=== PATIENT | female | born 1950 | race Caucasian/White ===

== ENCOUNTER 2016-09-17 22:46 | Inpatient (IN) | payer MEDICARE, OTHER ==
[~2016-09-17] VITALS: Ht 167.6 cm; Wt 92.7 kg
[~2016-09-17 22:46] MED LIST: ALPR0.254 PO; ASPI-612 PO; BUPR150T15 PO; BUSP5TAB PO; CALC-157 PO; CETI10TA16 PO; CHOL10002 PO; CYAN10002 IM; DEXT15DR5 EACHEYE; DEXT38GE2 PO; DONE5TAB7 PO; FENO160T PO; FLUO20CA8 PO; FLUO40CA2 PO; FLUT10.6 IH; FLUT16SP NS; GLUC1KIT IM; HALO0.5T PO; HALO1TAB PO; HYPR15DR5 OP; INSU100I16 SQ; INSU100I17 SQ; INSU100I27 SQ; LOPE2TAB56 PO; LORA0.5T PO; LOSA100T6 PO; LOSA50TA6 PO; MAG360OR24 PO; METF500T9 PO; PANT40TA3 PO; PETR5OIN TP; PROAIR HFA8.5 GM IH; RANI300T PO; SIMV20TA3 PO; TIOT18CA IH
[2016-09-17] MEDS ORDERED: methylPREDNISolone SOD SUCC PF 125 MG/2 ML VIAL. IV ONE (23:00)
[2016-09-17] MEDS ORDERED: IPRATRPIUM/ALBUTEROL 0.5/2.5MG 3 ML NEBU. NEB ONE (23:00)
[2016-09-17] MEDS ORDERED: 0.9 % SODIUM CHLORIDE 10 ML DISP.SYRIN. IV PRN (23:00)
[2016-09-17] MEDS ORDERED: IV NORMAL SALINE 1000ML BAG 1,000 ML IV SCH (23:00)
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
[2016-09-17 23:22] LABS: BILIRUBIN,URINE NEGATIVE (NEG); GLUCOSE,URINE NEGATIVE (NEG); NITRITE,URINE NEGATIVE (NEG); PROTEIN,URINE NEGATIVE (NEG-TRACE); UROBILINOGEN,URINE 0.2 mg/dL (0.2 mg/dL)
[2016-09-17 23:24] LABS: BASO % 0 % (0-3); EOS % 0 % (0-3); HEMATOCRIT 31.1 % (36.0-47.0); HEMOGLOBIN 10.1 g/dL (12.0-15.5); LYMPH # 1.5 x10^3/uL (1.0-4.8); LYMPH % 8 % (24-48); MEAN CORPUSCULAR HEMOGLOBIN 27 pg (25-35); MEAN CORPUSCULAR HGB CONC 32 g/dL (31-37); MEAN CORPUSCULAR VOLUME 82 fL (79-100); MONO % 8 % (0-9); NEUT % 84 % (31-73); PLATELET COUNT 296 x10^3/uL (140-400); RED CELL DISTRIBUTION WIDTH 14.8 % (11.5-14.5); WHITE BLOOD COUNT 17.8 x10^3/uL (4.0-11.0)
[2016-09-17] MEDS ORDERED: AZITHROMYCIN 500 MG in IV NORMAL SALINE 250ML 250 ML IV ONE (23:30)
[2016-09-17] MEDS ORDERED: ALBUTEROL SULFATE 2.5 MG/3 ML NEBU. ONE (23:33)
[2016-09-17 23:34] LABS: BACTERIA,URINE FEW /HPF (0-FEW); SQUAMOUS EPITHELIAL CELL,UR FEW /LPF
[2016-09-17 23:40] LABS: CALCIUM 8.9 mg/dL (8.5-10.1); CREATININE 1.2 mg/dL (0.6-1.0); GFR 45.2; POTASSIUM 4.8 mmol/L (3.5-5.1)
[2016-09-17] MEDS ORDERED: ALBUTEROL SULFATE 2.5 MG/3 ML NEBU. NEB ONE ×2 (23:45)
[2016-09-17 23:51] LABS: ALBUMIN 3.2 g/dL (3.4-5.0); DIRECT BILIRUBIN 0.1 mg/dL (0.0-0.2); MAGNESIUM 1.5 mg/dL (1.8-2.4); TOTAL BILIRUBIN 0.4 mg/dL (0.2-1.0); TOTAL PROTEIN 6.2 g/dL (6.4-8.2)
[2016-09-17 23:53] LABS: HCO3 ABG 25 mmol/L (21-28); PCO2 ABG 37 mmHg (35-46); PH ABG 7.46 (7.35-7.45); PO2 ABG 86 mmHg (65-108); SAT O2 ABG 96 % (92-99)
[2016-09-17 23:55] LABS: CKMB MASS 1.7 ng/mL (0.0-3.6)
[2016-09-18] VITALS (7 sets, daily range): BP systolic 116–151; BP diastolic 57–87
[2016-09-18 00:13] LABS: FIO2 ABG 28
[2016-09-18] MEDS ORDERED: ACETAMINOPHEN 325 MG TABLET. PO ONE (00:15)
[2016-09-18] MEDS ORDERED: ONDANSETRON PF 4 MG/2 ML VIAL. IV PRN (00:15)
[2016-09-18] MEDS ORDERED: ACETAMINOPHEN 325 MG TABLET. PO PRN (00:15)
[2016-09-18 00:21] LABS: PLT ESTIMATE ADEQUATE (ADEQUATE)
--- NOTE | 2016-09-18 00:23 | ACF ---
Admission Forms Criteria COPD Clinical Indications for Admission to Inpatient Care (Place 'X' for any and all applicable criteria): Admission is indicated for ANY ONE of the following (1)(2)(3): [X ]I. Acute exacerbation by high-risk comorbidity (e.g., pneumonia, dysrhythmia, heart failure, pleural effusion, pneumothorax) or severe underlying COPD (e.g., steroid dependent) [ ]II. Inpatient admission required rather than observation care (see Chronic Obstructive Pulmonary Disease: Observation Care) because of ANY ONE of the following: [ ]a) New or pre-existing signs or symptoms of COPD (eg, dyspnea or Tachypnea at rest or with minimal activity) that persist despite outpatient and observation care treatment [ ]b) New-onset hypoxemia (room air SaO2 less than 90%, PO2 less than 60 mm Hg (8.0 kPa)) that persists despite outpatient and observation care treatment [ ]c) Worsening of pre-existing hypoxemia (eg, new or increased requirement for supplemental oxygen to maintain oxygenation at baseline level) that persists despite outpatient and observation care treatment, with oxygen treatment needs performable only in acute inpatient setting [ ]d) Hypercarbia (PCO2 greater than 40 mm Hg (5.3 kPa))-induced respiratory acidosis (pH less than 7.35) that persists despite outpatient and observation care treatment [ ]e) Supplemental oxygen or respiratory treatments for over 24 hours that are performable only in acute inpatient setting [ ]f) Chest tube placement with active evacuation (e.g., suction, drainage) (5) [ ]g) Other condition, treatment or monitoring requiring inpatient admission [ ]III. Planned invasive surgical or diagnostic procedures requiring acute- care hospitalization [ ]IV. Acute respiratory failure (e.g., uncompensated hypercarbia, severe hypoxemia) [ ]V. Severe comorbid condition (e.g., severe steroid myopathy, acute vertebral fracture) that has acutely worsened pulmonary function [ ]. Confusion state, lethargy, obtundation, stupor or coma Extended stay beyond goal length of stay may be needed for (31)(32): [ ]a ) Respiratory Failure. [ ]b) Severe or persisting hypoxemia or hypercarbia [ ]c) Severe or persistent dyspnea [ ]d) Comorbidities (e.g. chronic heart failure, atrial fibrillation with rapid response, pneumonia) [ ]e) Malnutrition The original [facility] content created by [facility] has been revised. The portions of the content which have been revised are identified through the use of italic text or in bold, and [facility] has neither reviewed nor approved the modified material. All other unmodified content is copyright [facility]. Please see references footnoted in the original [facility] edition 2016 Admission Criteria Met?: Yes GIDEON HAMPTON Sep 18, 2016 00:23
[2016-09-18 01:37] LABS: OBC FLU VALID
[2016-09-18] MEDS: IV NORMAL SALINE 1000ML BAG 1,000 ML IV SCH ×3 (01:59→20:35)
--- NOTE | 2016-09-18 07:42 | RAD ---
Indication: Shortness of breath. Time of exam 0016 hours. Correlation is made with prior study from 09/29/2014. The heart size is stable. There has been development of airspace infiltrates in the right lung base suggestive of pneumonia. Left lung is clear. No effusion or pneumothorax is seen. Impression: Right basilar pneumonia.
[2016-09-18] MEDS ORDERED: GUAI600T47 PO (07:53)
[2016-09-18] MEDS ORDERED: BENZ0.5T PO (07:53)
[2016-09-18] MEDS ORDERED: ALBU2.5V5 NEB (07:53)
[2016-09-18] MEDS ORDERED: INSU100I17 SQ (07:53)
[2016-09-18] MEDS ORDERED: MONT10TA9 PO (07:53)
[2016-09-18] MEDS ORDERED: TIZA4TAB PO (07:53)
[2016-09-18] MEDS ORDERED: MENT118G TP (07:53)
[2016-09-18] MEDS ORDERED: SIME100L MC (07:53)
[2016-09-18] MEDS ORDERED: GUAI237L83 PO (07:53)
[2016-09-18] MEDS ORDERED: GLUC1KIT IM (07:53)
[2016-09-18] MEDS ORDERED: LORA-434 PO (07:53)
[2016-09-18] MEDS ORDERED: MULT1TAB52 PO (07:53)
[2016-09-18] MEDS ORDERED: HALO2TAB PO (07:53)
[2016-09-18] MEDS ORDERED: DEXT15DR5 EACHEYE (07:53)
[2016-09-18] MEDS ORDERED: BREO ELLIPTA 11 EACH IH (07:53)
[2016-09-18] MEDS ORDERED: FLUO20TA11 PO (07:53)
[2016-09-18] MEDS ORDERED: LOSA50TA6 PO (07:53)
[2016-09-18] MEDS ORDERED: ACET500T33 PO (07:53)
[2016-09-18] MEDS ORDERED: MAGN400C PO (07:53)
[2016-09-18] MEDS ORDERED: FLUT9.9S NS (07:53)
[2016-09-18] MEDS ORDERED: INSU100C4 SQ (07:53)
[2016-09-18] MEDS ORDERED: IPRATRPIUM/ALBUTEROL 0.5/2.5MG 3 ML NEBU. NEB SCH (08:00)
[2016-09-18] MEDS ORDERED: POLYVINYL ALCOHOL 1.4% OPHTH SOLUTION 15ML BOTTLE. OU PRN (10:15)
[2016-09-18] MEDS ORDERED: SIMETHICONE 80 MG TAB.CHEW PO PRN (10:15)
[2016-09-18] MEDS ORDERED: LOPERAMIDE 2 MG CAPSULE PO PRN (10:15)
[2016-09-18] MEDS ORDERED: MAG HYDROX/ALUMINUM HYD/SIMETH 30 ML ORAL.SUSP PO PRN (10:15)
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
[2016-09-18] MEDS ORDERED: FLUTICASONE 50MCG/NASAL SPRAY 16GM BOTTLE. NS SCH (11:30)
[2016-09-18] MEDS ORDERED: MAGNESIUM OXIDE 400 MG TABLET PO SCH (11:30)
[2016-09-18] MEDS: ALBUTEROL SULFATE 2.5 MG/3 ML NEBU. NEB SCH ×3 (11:45→19:43)
[2016-09-18] MEDS: BUDESONIDE 0.5 MG/2 ML NEBU. NEB SCH ×2 (11:45→19:43)
[2016-09-18] MEDS: INSULIN DETEMIR 300 UNITS/3 ML INSULN.PEN. SQ SCH ×2 (11:51→21:00)
[2016-09-18] MEDS: INSULIN ASPART 300 UNITS/3 ML INSULN.PEN SQ SCH ×4 (11:54→16:52)
[2016-09-18] MEDS: LORazepam 1 MG TABLET PO SCH ×2 (11:55→20:39)
[2016-09-18] MEDS: CALCIUM CARB/VIT D3 500/200 TABLET. PO SCH (11:55)
[2016-09-18] MEDS: buPROPion XL 150 MG TAB.ER.24H. PO SCH (11:56)
[2016-09-18] MEDS: MULTIVITAMIN with MINERAL TABLET. PO SCH (11:56)
[2016-09-18] MEDS: ASPIRIN ENTERIC COATED 81 MG TABLET.DR. PO SCH (11:56)
[2016-09-18] MEDS: PANTOPRAZOLE 40 MG TABLET.DR. PO SCH (11:56)
[2016-09-18] MEDS: MAGNESIUM OXIDE 400 MG TABLET PO SCH ×2 (11:56→20:40)
[2016-09-18] MEDS: FLUTICASONE 50MCG/NASAL SPRAY 16GM BOTTLE. NS SCH (11:57)
[2016-09-18] MEDS: LOSARTAN POTASSIUM 50 MG TABLET. PO SCH (11:57)
[2016-09-18] MEDS: methylPREDNISolone SOD SUCC PF 125 MG/2 ML VIAL. IV SCH ×2 (11:59→20:41)
--- NOTE | 2016-09-18 12:19 | EKG ---
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
[2016-09-18] MEDS: busPIRone 5 MG TABLET. PO SCH ×2 (14:56→20:40)
[2016-09-18] MEDS: BENZTROPINE MESYLATE 1 MG TABLET. PO SCH (20:39)
[2016-09-18] MEDS: DONEPEZIL HCL 5 MG TABLET. PO SCH (20:40)
[2016-09-18] MEDS: FLUoxetine HCL 20 MG CAPSULE PO SCH (20:40)
[2016-09-18] MEDS: tiZANidine 4 MG TABLET. PO SCH (20:40)
[2016-09-18] MEDS: SIMVASTATIN 20 MG TABLET PO SCH (20:40)
[2016-09-18] MEDS: HALOPERIDOL 2 MG TABLET. PO SCH (20:41)
[2016-09-18] MEDS: MONTELUKAST SODIUM 10 MG TABLET. PO SCH (20:41)
[2016-09-18] MEDS: FAMOTIDINE 20 MG TABLET. PO SCH (20:41)
[2016-09-18] MEDS ORDERED: AZITHROMYCIN 500 MG in IV NORMAL SALINE 250ML 250 ML IV SCH (23:00)
[2016-09-19 03:00] VITALS: BP 142/82
[2016-09-19 06:05] LABS: BASO % 0 % (0-3); EOS % 0 % (0-3); HEMATOCRIT 29.1 % (36.0-47.0); HEMOGLOBIN 9.3 g/dL (12.0-15.5); LYMPH # 0.6 x10^3/uL (1.0-4.8); LYMPH % 4 % (24-48); MEAN CORPUSCULAR HEMOGLOBIN 26 pg (25-35); MEAN CORPUSCULAR HGB CONC 32 g/dL (31-37); MEAN CORPUSCULAR VOLUME 83 fL (79-100); MONO % 4 % (0-9); NEUT % 92 % (31-73); PLATELET COUNT 319 x10^3/uL (140-400); RED BLOOD COUNT 3.52 x10^6/uL (3.50-5.40); RED CELL DISTRIBUTION WIDTH 15.1 % (11.5-14.5); WHITE BLOOD COUNT 14.2 x10^3/uL (4.0-11.0)
[2016-09-19 06:20] LABS: CALCIUM 8.8 mg/dL (8.5-10.1); CREATININE 0.9 mg/dL (0.6-1.0); MAGNESIUM 2.1 mg/dL (1.8-2.4); POTASSIUM 4.2 mmol/L (3.5-5.1)
[2016-09-19] MEDS: INSULIN ASPART 300 UNITS/3 ML INSULN.PEN SQ SCH ×6 (07:30→17:13)
[2016-09-19 07:50] VITALS: BP 133/73
[2016-09-19] MEDS: ALBUTEROL SULFATE 2.5 MG/3 ML NEBU. NEB SCH ×4 (07:57→19:23)
[2016-09-19] MEDS: BUDESONIDE 0.5 MG/2 ML NEBU. NEB SCH ×2 (07:57→19:23)
[2016-09-19] MEDS: buPROPion XL 150 MG TAB.ER.24H. PO SCH (08:20)
[2016-09-19] MEDS: MAGNESIUM OXIDE 400 MG TABLET PO SCH ×2 (08:20→20:40)
[2016-09-19] MEDS: busPIRone 5 MG TABLET. PO SCH ×3 (08:20→20:43)
[2016-09-19] MEDS: ASPIRIN ENTERIC COATED 81 MG TABLET.DR. PO SCH (08:20)
[2016-09-19] MEDS: MULTIVITAMIN with MINERAL TABLET. PO SCH (08:21)
[2016-09-19] MEDS: PANTOPRAZOLE 40 MG TABLET.DR. PO SCH (08:21)
[2016-09-19] MEDS: LOSARTAN POTASSIUM 50 MG TABLET. PO SCH (08:21)
[2016-09-19] MEDS: methylPREDNISolone SOD SUCC PF 125 MG/2 ML VIAL. IV SCH ×2 (08:22→20:40)
[2016-09-19] MEDS: LORazepam 1 MG TABLET PO SCH ×2 (08:22→20:43)
[2016-09-19] MEDS: CALCIUM CARB/VIT D3 500/200 TABLET. PO SCH (08:22)
[2016-09-19] MEDS: FLUTICASONE 50MCG/NASAL SPRAY 16GM BOTTLE. NS SCH (08:23)
--- NOTE | 2016-09-19 09:20 | PDOC ---
Provider Note Provider Note dictated PRASHANTH DURAN MD Sep 19, 2016 09:20
[2016-09-19] MEDS: INSULIN DETEMIR 300 UNITS/3 ML INSULN.PEN. SQ SCH ×2 (09:29→20:58)
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
--- NOTE | 2016-09-19 10:16 | PDOC ---
IM PROGRESS NOTES- Subjective Subjective Has cough,congestion,dyspnea. Objective Vitals Vital Signs Date Time Temp Pulse Resp B/P (MAP) Pulse Ox O2 Delivery O2 Flow Rate FiO2 09/19/16 08:21 91 133/73 09/19/16 07:57 94 Nasal Cannula 2.0 09/19/16 07:50 95.0 18 95.0 Input & Output Intake and Output 09/19/16 07:00 Intake Total 3060 ml Balance 3060 ml Intake Oral 3060 ml # Voids 7 Physical Exam Physical Exam General appearance - alert,ill appearing, and in mild distress and oriented to person, place, and time Mental Status - alert, oriented to person, place, and time, affect appropriate to mood Head - normal Chest - bilateral wheezing Heart - S1 and S2 normal Abdomen - soft, nontender, nondistended, no masses or organomegaly Neurological - alert and oriented Musculoskeletal - no muscular tenderness noted Extremities - no pedal edema Skin - warm and dry Labs Laboratory Tests Test 09/17/16 23:08 09/17/16 23:32 09/18/16 03:45 09/18/16 06:00 White Blood Count 17.8 x10^3/uL (4.0-11.0) Red Blood Count 3.80 x10^6/uL (3.50-5.40) Hemoglobin 10.1 g/dL (12.0-15.5) Hematocrit 31.1 % (36.0-47.0) Mean Corpuscular Volume 82 fL (79-100) Mean Corpuscular Hemoglobin 27 pg (25-35) Mean Corpuscular Hemoglobin Concent 32 g/dL (31-37) Red Cell Distribution Width 14.8 % (11.5-14.5) Platelet Count 296 x10^3/uL (140-400) Neutrophils (%) (Auto) 84 % (31-73) Lymphocytes (%) (Auto) 8 % (24-48) Monocytes (%) (Auto) 8 % (0-9) Eosinophils (%) (Auto) 0 % (0-3) Basophils (%) (Auto) 0 % (0-3) Neutrophils # (Auto) 14.9 x10^3uL (1.8-7.7) Lymphocytes # (Auto) 1.5 x10^3/uL (1.0-4.8) Monocytes # (Auto) 1.4 x10^3/uL (0.0-1.1) Eosinophils # (Auto) 0.0 x10^3/uL (0.0-0.7) Basophils # (Auto) 0.0 x10^3/uL (0.0-0.2) Segmented Neutrophils % 79 % (35-66) Band Neutrophils % 1 % (0-9) Lymphocytes % 14 % (24-48) Monocytes % 6 % (0-10) Platelet Estimate Adequate (ADEQUATE) Large Platelets Occ Urine Collection Type Unknown Urine Color Yellow Urine Clarity Clear Urine pH 7.0 Urine Specific [place] 1.010 Urine Protein Negative mg/dL (NEG-TRACE) Urine Glucose (UA) Negative mg/dL (NEG) Urine Ketones (Stick) Negative mg/dL (NEG) Urine Blood Trace (NEG) Urine Nitrite Negative (NEG) Urine Bilirubin Negative (NEG) Urine Urobilinogen Dipstick 0.2 mg/dL (0.2 mg/dL) Urine Leukocyte Esterase Negative (NEG) Urine RBC 1-2 /HPF (0-2) Urine WBC 1-4 /HPF (0-4) Urine Squamous Epithelial Cells Few /LPF Urine Bacteria Few /HPF (0-FEW) Sodium Level 131 mmol/L (136-145) Potassium Level 4.8 mmol/L (3.5-5.1) Chloride Level 96 mmol/L (98-107) Carbon Dioxide Level 28 mmol/L (21-32) Anion Gap 7 (6-14) Blood Urea Nitrogen 17 mg/dL (7-20) Creatinine 1.2 mg/dL (0.6-1.0) Estimated GFR (Cockcroft-Gault) 45.2 Glucose Level 140 mg/dL (70-99) Lactic Acid Level 1.2 mmol/L (0.4-2.0) Calcium Level 8.9 mg/dL (8.5-10.1) Magnesium Level 1.5 mg/dL (1.8-2.4) Total Bilirubin 0.4 mg/dL (0.2-1.0) Direct Bilirubin 0.1 mg/dL (0.0-0.2) Aspartate Amino Transf (AST/SGOT) 35 U/L (15-37) Alanine Aminotransferase (ALT/SGPT) 30 U/L (14-59) Alkaline Phosphatase 143 U/L (46-116) Creatine Kinase 200 U/L (26-192) Creatine Kinase MB (Mass) 1.7 ng/mL (0.0-3.6) Creatine Kinase MB Relative Index 0.9 % (0-4) Troponin I Quantitative < 0.017 ng/mL (0.000-0.055) < 0.017 ng/mL (0.000-0.055) JJ-Ohe-U-Type Natriuretic Peptide 492 pg/mL (0-124) Total Protein 6.2 g/dL (6.4-8.2) Albumin 3.2 g/dL (3.4-5.0) Lipase 46 U/L (73-393) Thyroid Stimulating Hormone (TSH) 1.599 uIU/mL (0.358-3.74) O2 Saturation 96 % (92-99) Arterial Blood pH 7.46 (7.35-7.45) Arterial Blood pCO2 at Patient Temp 37 mmHg (35-46) Arterial Blood pO2 at Patient Temp 86 mmHg (65-108) Arterial Blood HCO3 25 mmol/L (21-28) Arterial Blood Base Excess 1 mmol/L (-3-3) FiO2 28 Nasal Screen MRSA (PCR) Negative (Negative) Test 09/18/16 07:57 09/18/16 11:32 09/18/16 11:55 09/18/16 16:45 Glucose (Fingerstick) 372 mg/dL (70-99) 435 mg/dL (70-99) 459 mg/dL (70-99) Troponin I Quantitative < 0.017 ng/mL (0.000-0.055) Test 09/18/16 21:06 09/19/16 05:05 09/19/16 07:56 Glucose (Fingerstick) 393 mg/dL (70-99) 316 mg/dL (70-99) White Blood Count 14.2 x10^3/uL (4.0-11.0) Red Blood Count 3.52 x10^6/uL (3.50-5.40) Hemoglobin 9.3 g/dL (12.0-15.5) Hematocrit 29.1 % (36.0-47.0) Mean Corpuscular Volume 83 fL (79-100) Mean Corpuscular Hemoglobin 26 pg (25-35) Mean Corpuscular Hemoglobin Concent 32 g/dL (31-37) Red Cell Distribution Width 15.1 % (11.5-14.5) Platelet Count 319 x10^3/uL (140-400) Neutrophils (%) (Auto) 92 % (31-73) Lymphocytes (%) (Auto) 4 % (24-48) Monocytes (%) (Auto) 4 % (0-9) Eosinophils (%) (Auto) 0 % (0-3) Basophils (%) (Auto) 0 % (0-3) Neutrophils # (Auto) 13.1 x10^3uL (1.8-7.7) Lymphocytes # (Auto) 0.6 x10^3/uL (1.0-4.8) Monocytes # (Auto) 0.5 x10^3/uL (0.0-1.1) Eosinophils # (Auto) 0.0 x10^3/uL (0.0-0.7) Basophils # (Auto) 0.0 x10^3/uL (0.0-0.2) Sodium Level 136 mmol/L (136-145) Potassium Level 4.2 mmol/L (3.5-5.1) Chloride Level 100 mmol/L (98-107) Carbon Dioxide Level 25 mmol/L (21-32) Anion Gap 11 (6-14) Blood Urea Nitrogen 20 mg/dL (7-20) Creatinine 0.9 mg/dL (0.6-1.0) Estimated GFR (Cockcroft-Gault) 63.0 Glucose Level 345 mg/dL (70-99) Calcium Level 8.8 mg/dL (8.5-10.1) Magnesium Level 2.1 mg/dL (1.8-2.4) Laboratory Tests Test 09/18/16 11:32 09/18/16 11:55 09/18/16 16:45 09/18/16 21:06 Glucose (Fingerstick) 435 mg/dL (70-99) 459 mg/dL (70-99) 393 mg/dL (70-99) Troponin I Quantitative < 0.017 ng/mL (0.000-0.055) Test 09/19/16 05:05 09/19/16 07:56 White Blood Count 14.2 x10^3/uL (4.0-11.0) Red Blood Count 3.52 x10^6/uL (3.50-5.40) Hemoglobin 9.3 g/dL (12.0-15.5) Hematocrit 29.1 % (36.0-47.0) Mean Corpuscular Volume 83 fL (79-100) Mean Corpuscular Hemoglobin 26 pg (25-35) Mean Corpuscular Hemoglobin Concent 32 g/dL (31-37) Red Cell Distribution Width 15.1 % (11.5-14.5) Platelet Count 319 x10^3/uL (140-400) Neutrophils (%) (Auto) 92 % (31-73) Lymphocytes (%) (Auto) 4 % (24-48) Monocytes (%) (Auto) 4 % (0-9) Eosinophils (%) (Auto) 0 % (0-3) Basophils (%) (Auto) 0 % (0-3) Neutrophils # (Auto) 13.1 x10^3uL (1.8-7.7) Lymphocytes # (Auto) 0.6 x10^3/uL (1.0-4.8) Monocytes # (Auto) 0.5 x10^3/uL (0.0-1.1) Eosinophils # (Auto) 0.0 x10^3/uL (0.0-0.7) Basophils # (Auto) 0.0 x10^3/uL (0.0-0.2) Sodium Level 136 mmol/L (136-145) Potassium Level 4.2 mmol/L (3.5-5.1) Chloride Level 100 mmol/L (98-107) Carbon Dioxide Level 25 mmol/L (21-32) Anion Gap 11 (6-14) Blood Urea Nitrogen 20 mg/dL (7-20) Creatinine 0.9 mg/dL (0.6-1.0) Estimated GFR (Cockcroft-Gault) 63.0 Glucose Level 345 mg/dL (70-99) Calcium Level 8.8 mg/dL (8.5-10.1) Magnesium Level 2.1 mg/dL (1.8-2.4) Glucose (Fingerstick) 316 mg/dL (70-99) Meds Current Medications Al Hydroxide/Mg Hydroxide (Mylanta Plus Xs) 30 ml PRN Q4HRS PRN PO HEARTBURN / GAS; Start 09/18/16 at 10:15 Albuterol Sulfate (Ventolin Neb Soln) 2.5 mg QID NEB Last administered on 07:57; Start 09/18/16 at 13:00 Artificial Tears (Artificial Tears) 1 drop PRN QID PRN OU DRY EYE; Start at 10:15 Aspirin (Ecotrin) 81 mg DAILY PO Last administered on 09/19/16 08:20; Start 09/18/16 at 11:30 Azithromycin 500 mg/Sodium Chloride 250 ml @ 250 mls/hr Q24H IV Last administered on 09/18/16 20:50; Start 09/18/16 at 23:00 Benztropine Mesylate (Cogentin) 0.5 mg HS PO Last administered on 09/18/16 20: 39; Start 09/18/16 at 21:00 Budesonide (Pulmicort) 0.5 mg RTBID NEB Last administered on 09/19/16 07:57; Start 09/18/16 at 11:30 Bupropion HCl (Wellbutrin Xl) 150 mg DAILY PO Last administered on 09/19/16 08: 20; Start 09/18/16 at 11:30 Buspirone HCl (Buspar) 5 mg TID PO Last administered on 09/19/16 08:20; Start 09/18/16 at 14:00 Calcium/Vitamin D (Oscal D 500mg/ 200uts) 1 tab DAILY PO Last administered on 08:22; Start 09/18/16 at 11:30 Ceftriaxone Sodium 1 gm/ Sodium Chloride 50 ml @ 100 mls/hr Q24H IV Last administered on 09/18/16 23:37; Start 09/18/16 at 23:00 Cyanocobalamin (Vitamin B-12) 1,000 mcg QMONTH IM ; Start 10/18/16 at 09:00 Donepezil HCl (Aricept) 5 mg HS PO Last administered on 09/18/16 20:40; Start 09/18/16 at 21:00 Famotidine (Pepcid) 40 mg HS PO Last administered on 09/18/16 20:41; Start 09/18 at 21:00 Fluoxetine HCl (PROzac) 60 mg HS PO Last administered on 09/18/16 20:40; Start 09/18/16 at 21:00 Fluticasone Propionate (Flonase) 2 spray DAILY NS Last administered on 08:23; Start 09/18/16 at 11:30 Fluticasone Propionate (Flonase) 2 spray DAILY NS ; Start 09/18/16 at 11:30; Status UNV Guaifenesin (Mucinex) 1,200 mg BID PO Last administered on 09/19/16 09:22; Start 09/18/16 at 11:30 Haloperidol (Haldol) 2 mg QHS PO Last administered on 09/18/16 20:41; Start 09/18/16 at 21:00 Insulin Aspart (NovoLOG) TIDBFRMEAL SQ Last administered on 09/19/16 07:30; Start 09/18/16 at 11:30 Insulin Aspart (NovoLOG) 10 units TIDAC SQ Last administered on 09/19/16 08:30 ; Start 09/18/16 at 11:30 Insulin Detemir (Levemir) 20 units BID SQ Last administered on 09/19/16 09:29; Start 09/18/16 at 11:30 Loperamide HCl (Imodium) 2 mg PRN Q8HRS PRN PO DIARRHEA; Start 09/18/16 at 10:15 Lorazepam (Ativan) 1 mg BID PO Last administered on 09/19/16 08:22; Start at 11:30 Losartan Potassium (Cozaar) 50 mg DAILY PO Last administered on 09/19/16 08:21 ; Start 09/18/16 at 11:30 Magnesium Oxide (Magnesium Oxide) 400 mg BID PO Last administered on 09/19/16 08:20; Start 09/18/16 at 11:30 Magnesium Oxide (Magnesium Oxide) 400 mg DAILY PO ; Start 09/18/16 at 11:30; Stop 09/18/16 at 11:30; Status DC Methylprednisolone Sodium Succinate (SOLU-Medrol 125MG VIAL) 80 mg Q12HR IV Last administered on 09/19/16 08:22; Start 09/18/16 at 11:30 Montelukast Sodium (Singulair) 10 mg HS PO Last administered on 09/18/16 20:41 ; Start 09/18/16 at 21:00 Multivitamins (Thera M Plus) 1 tab DAILY PO Last administered on 09/19/16 08:21 ; Start 09/18/16 at 11:30 Pantoprazole Sodium (Protonix) 40 mg DAILYAC PO Last administered on 09/19/16 08:21; Start 09/18/16 at 11:30 Simethicone (Gas-X) 80 mg PRN Q4HRS PRN PO GAS / BLOATING; Start 09/18/16 at 10: 15 Simvastatin (Zocor) 20 mg HS PO Last administered on 09/18/16 20:40; Start 09/18 at 21:00 Tizanidine HCl (Zanaflex) 4 mg QHS PO Last administered on 09/18/16 20:40; Start 09/18/16 at 21:00 Assessment Assessment 1. HCFA pneumonia grm neg/gram+ 2. AECOPD 3. dementia with psychosis 4. schizoaffective disorder 5. 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 HTN 8..hyperlipidemia 9. secondary Parkinson's 10. anemia chronic B12 deficiency 11. CKD III 12. hyponatremia chronic 13. pulmonary HTN 14. allergic rhinitis PLAN: pneumonia/AECOPD mucinex 1200mg bid albuterol nebulizer qid/budesonide bid O2 supplement zithromax/rocephin IV Decrease Solumedrol 60mg IV [id number] Consult . CT chest. DM II- not controlled FSBS SSI Increase Levemir to 24 units s/c bid and Humalog to 12 units s/c tid AC. Decrease IV Solumedrol CKD III Abmit BUN 17 Cr 1.2 Na 131 Hypomagnesemia better. Mg 1.5 - 2.1 Increase Mag ox to bid Na-monitor, is chronic r/t psych meds Schizophrenia/dementia/psychosis continue home medications DVT/GI prophylaxis SCD/MATEUS PPI Plan Plan DM 2 not controlled. The patient was seen and examined by me. Chart reviewed and plan of care formulated. Discussed with, reviewed and agree with MANAGER SPRING's notes, plan of care and orders with modifications as necessary. For more details regarding further plans, please refer to the orders. LUIS FERNANDO YATES MD Sep 19, 2016 10:16
[2016-09-19 10:45] VITALS: BP 109/63
--- NOTE | 2016-09-19 13:53 | RAD ---
Indication: Cough and difficulty breathing. Axial imaging through the chest was performed without contrast. No prior studies are available for comparison. No axillary lymphadenopathy is identified. Hilar and mediastinal evaluation is limited without intravenous contrast. There is a large calcified subcarinal lymph node. There are some calcified right hilar nodes as well. Coronary arterial calcifications are noted. No pericardial or pleural fluid is detected. There are groundglass infiltrates identified throughout the right upper lobe. There are also patchy groundglass infiltrates noted in the right lower lobe. There is an air cyst in the right lower lobe as well measuring 2.3 cm. The left lung appears fairly clear apart from minimal atelectasis or scarring in the lingula. No mass is identified. The upper abdomen is unremarkable. Impression: There are diffuse groundglass infiltrates noted throughout the right upper and right lower lobes. These are likely on an infectious or inflammatory basis. No other significant abnormality is seen. PQRS Compliance Statement: One or more of the following individualized dose reduction techniques were utilized for this examination: 1. Automated exposure control 2. Adjustment of the mA and/or kV according to patient size 3. Use of iterative reconstruction technique
[2016-09-19 14:30] VITALS: BP 123/81
[2016-09-19 19:00] VITALS: BP 146/76
[2016-09-19] MEDS: SIMVASTATIN 20 MG TABLET PO SCH (20:41)
[2016-09-19] MEDS: FAMOTIDINE 20 MG TABLET. PO SCH (20:41)
[2016-09-19] MEDS: FLUoxetine HCL 20 MG CAPSULE PO SCH (20:41)
[2016-09-19] MEDS: tiZANidine 4 MG TABLET. PO SCH (20:42)
[2016-09-19] MEDS: MONTELUKAST SODIUM 10 MG TABLET. PO SCH (20:42)
[2016-09-19] MEDS: DONEPEZIL HCL 5 MG TABLET. PO SCH (20:43)
[2016-09-19] MEDS: HALOPERIDOL 2 MG TABLET. PO SCH (20:43)
[2016-09-19] MEDS: BENZTROPINE MESYLATE 1 MG TABLET. PO SCH (20:43)
[2016-09-19] MEDS ORDERED: CEFPODOXIME PROXETIL 100 MG TABLET. PO SCH (21:00)
[2016-09-19] MEDS ORDERED: AZITHROMYCIN 250 MG TABLET. PO SCH (21:00)
[2016-09-19 23:00] VITALS: BP 165/95
[2016-09-20] MEDS ORDERED: ALBUTEROL SULFATE 2.5 MG/3 ML NEBU. NEB ONE (01:30)
[2016-09-20 03:06] VITALS: BP 162/91
[2016-09-20 05:00] LABS: BASO % 0 % (0-3); EOS % 0 % (0-3); HEMATOCRIT 27.3 % (36.0-47.0); HEMOGLOBIN 9.1 g/dL (12.0-15.5); LYMPH # 0.8 x10^3/uL (1.0-4.8); LYMPH % 6 % (24-48); MEAN CORPUSCULAR HEMOGLOBIN 27 pg (25-35); MEAN CORPUSCULAR HGB CONC 33 g/dL (31-37); MEAN CORPUSCULAR VOLUME 81 fL (79-100); MONO % 4 % (0-9); NEUT % 90 % (31-73); PLATELET COUNT 347 x10^3/uL (140-400); RED BLOOD COUNT 3.39 x10^6/uL (3.50-5.40); RED CELL DISTRIBUTION WIDTH 14.8 % (11.5-14.5); WHITE BLOOD COUNT 14.3 x10^3/uL (4.0-11.0)
[2016-09-20 05:11] LABS: CALCIUM 8.8 mg/dL (8.5-10.1); CREATININE 0.9 mg/dL (0.6-1.0); MAGNESIUM 2.1 mg/dL (1.8-2.4); POTASSIUM 4.5 mmol/L (3.5-5.1)
--- NOTE | 2016-09-20 06:29 | PDOC ---
KATIABELLO GUARD MANAGER 09/20/16 0629: IM PROGRESS NOTES- Subjective Subjective cough is better, still wheezing Objective Objective no distress, alert Vitals Vital Signs Date Time Temp Pulse Resp B/P (MAP) Pulse Ox O2 Delivery O2 Flow Rate FiO2 09/20/16 03:06 98.3 86 20 162/91 (114) 90 Nasal Cannula 98.3 09/20/16 01:33 2.0 Input & Output Intake and Output 09/20/16 07:00 Intake Total 1460 ml Balance 1460 ml Intake Oral 1460 ml # Voids 6 Physical Exam Physical Exam General appearance - alert,ill appearing, and in mild distress and oriented to person, place, and time Mental Status - alert, oriented to person, place, and time, affect appropriate to mood Head - normal Chest - bilateral wheezing, upper airways > lower airways Heart - S1 and S2 normal Abdomen - soft, nontender, nondistended, no masses or organomegaly Neurological - alert and oriented Musculoskeletal - no muscular tenderness noted Extremities - no pedal edema Skin - warm and dry Labs Laboratory Tests Test 09/18/16 07:57 09/18/16 11:32 09/18/16 11:55 09/18/16 16:45 Glucose (Fingerstick) 372 mg/dL (70-99) 435 mg/dL (70-99) 459 mg/dL (70-99) Troponin I Quantitative < 0.017 ng/mL (0.000-0.055) Test 09/18/16 21:06 09/19/16 05:05 09/19/16 07:56 09/19/16 11:26 Glucose (Fingerstick) 393 mg/dL (70-99) 316 mg/dL (70-99) 353 mg/dL (70-99) White Blood Count 14.2 x10^3/uL (4.0-11.0) Red Blood Count 3.52 x10^6/uL (3.50-5.40) Hemoglobin 9.3 g/dL (12.0-15.5) Hematocrit 29.1 % (36.0-47.0) Mean Corpuscular Volume 83 fL (79-100) Mean Corpuscular Hemoglobin 26 pg (25-35) Mean Corpuscular Hemoglobin Concent 32 g/dL (31-37) Red Cell Distribution Width 15.1 % (11.5-14.5) Platelet Count 319 x10^3/uL (140-400) Neutrophils (%) (Auto) 92 % (31-73) Lymphocytes (%) (Auto) 4 % (24-48) Monocytes (%) (Auto) 4 % (0-9) Eosinophils (%) (Auto) 0 % (0-3) Basophils (%) (Auto) 0 % (0-3) Neutrophils # (Auto) 13.1 x10^3uL (1.8-7.7) Lymphocytes # (Auto) 0.6 x10^3/uL (1.0-4.8) Monocytes # (Auto) 0.5 x10^3/uL (0.0-1.1) Eosinophils # (Auto) 0.0 x10^3/uL (0.0-0.7) Basophils # (Auto) 0.0 x10^3/uL (0.0-0.2) Sodium Level 136 mmol/L (136-145) Potassium Level 4.2 mmol/L (3.5-5.1) Chloride Level 100 mmol/L (98-107) Carbon Dioxide Level 25 mmol/L (21-32) Anion Gap 11 (6-14) Blood Urea Nitrogen 20 mg/dL (7-20) Creatinine 0.9 mg/dL (0.6-1.0) Estimated GFR (Cockcroft-Gault) 63.0 Glucose Level 345 mg/dL (70-99) Calcium Level 8.8 mg/dL (8.5-10.1) Magnesium Level 2.1 mg/dL (1.8-2.4) Test 09/19/16 16:23 09/20/16 04:24 Glucose (Fingerstick) 224 mg/dL (70-99) White Blood Count 14.3 x10^3/uL (4.0-11.0) Red Blood Count 3.39 x10^6/uL (3.50-5.40) Hemoglobin 9.1 g/dL (12.0-15.5) Hematocrit 27.3 % (36.0-47.0) Mean Corpuscular Volume 81 fL (79-100) Mean Corpuscular Hemoglobin 27 pg (25-35) Mean Corpuscular Hemoglobin Concent 33 g/dL (31-37) Red Cell Distribution Width 14.8 % (11.5-14.5) Platelet Count 347 x10^3/uL (140-400) Neutrophils (%) (Auto) 90 % (31-73) Lymphocytes (%) (Auto) 6 % (24-48) Monocytes (%) (Auto) 4 % (0-9) Eosinophils (%) (Auto) 0 % (0-3) Basophils (%) (Auto) 0 % (0-3) Neutrophils # (Auto) 12.9 x10^3uL (1.8-7.7) Lymphocytes # (Auto) 0.8 x10^3/uL (1.0-4.8) Monocytes # (Auto) 0.5 x10^3/uL (0.0-1.1) Eosinophils # (Auto) 0.0 x10^3/uL (0.0-0.7) Basophils # (Auto) 0.0 x10^3/uL (0.0-0.2) Sodium Level 131 mmol/L (136-145) Potassium Level 4.5 mmol/L (3.5-5.1) Chloride Level 97 mmol/L (98-107) Carbon Dioxide Level 26 mmol/L (21-32) Anion Gap 8 (6-14) Blood Urea Nitrogen 20 mg/dL (7-20) Creatinine 0.9 mg/dL (0.6-1.0) Estimated GFR (Cockcroft-Gault) 63.0 Glucose Level 262 mg/dL (70-99) Calcium Level 8.8 mg/dL (8.5-10.1) Magnesium Level 2.1 mg/dL (1.8-2.4) Laboratory Tests Test 09/19/16 07:56 09/19/16 11:26 09/19/16 16:23 09/20/16 04:24 Glucose (Fingerstick) 316 mg/dL (70-99) 353 mg/dL (70-99) 224 mg/dL (70-99) White Blood Count 14.3 x10^3/uL (4.0-11.0) Red Blood Count 3.39 x10^6/uL (3.50-5.40) Hemoglobin 9.1 g/dL (12.0-15.5) Hematocrit 27.3 % (36.0-47.0) Mean Corpuscular Volume 81 fL (79-100) Mean Corpuscular Hemoglobin 27 pg (25-35) Mean Corpuscular Hemoglobin Concent 33 g/dL (31-37) Red Cell Distribution Width 14.8 % (11.5-14.5) Platelet Count 347 x10^3/uL (140-400) Neutrophils (%) (Auto) 90 % (31-73) Lymphocytes (%) (Auto) 6 % (24-48) Monocytes (%) (Auto) 4 % (0-9) Eosinophils (%) (Auto) 0 % (0-3) Basophils (%) (Auto) 0 % (0-3) Neutrophils # (Auto) 12.9 x10^3uL (1.8-7.7) Lymphocytes # (Auto) 0.8 x10^3/uL (1.0-4.8) Monocytes # (Auto) 0.5 x10^3/uL (0.0-1.1) Eosinophils # (Auto) 0.0 x10^3/uL (0.0-0.7) Basophils # (Auto) 0.0 x10^3/uL (0.0-0.2) Sodium Level 131 mmol/L (136-145) Potassium Level 4.5 mmol/L (3.5-5.1) Chloride Level 97 mmol/L (98-107) Carbon Dioxide Level 26 mmol/L (21-32) Anion Gap 8 (6-14) Blood Urea Nitrogen 20 mg/dL (7-20) Creatinine 0.9 mg/dL (0.6-1.0) Estimated GFR (Cockcroft-Gault) 63.0 Glucose Level 262 mg/dL (70-99) Calcium Level 8.8 mg/dL (8.5-10.1) Magnesium Level 2.1 mg/dL (1.8-2.4) Meds Current Medications Albuterol Sulfate (Ventolin Neb Soln) 2.5 mg 1X ONCE NEB Last administered on 09/20/16 01:31; Start 09/20/16 at 01:30; Stop 09/20/16 at 01:31; Status DC Azithromycin (Zithromax) 500 mg HS PO Last administered on 09/19/16 20:42; Start 09/19/16 at 21:00; Stop 09/20/16 at 06:17; Status DC Azithromycin 500 mg/Sodium Chloride 250 ml @ 250 mls/hr Q24H IV ; Start at 06:15; Status UNV Cefpodoxime Proxetil (Vantin) 200 mg BID PO Last administered on 09/19/16 20:42 ; Start 09/19/16 at 21:00; Stop 09/20/16 at 06:17; Status DC Ceftriaxone Sodium 1 gm/ Sodium Chloride 50 ml @ 100 mls/hr Q24H IV ; Start 09/20/16 at 06:15; Status UNV Cyanocobalamin (Vitamin B-12) 1,000 mcg QMONTH IM ; Start 10/18/16 at 09:00 Insulin Aspart (NovoLOG) 12 units TIDAC SQ Last administered on 09/19/16 17:12 ; Start 09/19/16 at 11:30 Insulin Detemir (Levemir) 24 units BID SQ Last administered on 09/19/16 20:58; Start 09/19/16 at 21:00 Methylprednisolone Sodium Succinate (SOLU-Medrol 125MG VIAL) 60 mg Q12HR IV Last administered on 09/19/16 20:40; Start 09/19/16 at 21:00 Assessment Assessment 1. HCFA pneumonia grm neg/gram+ 2. AECOPD 3. dementia with psychosis 4. schizoaffective disorder 5. hyperlipidemia 6. DM II usp insulin 7. HTN 8..hyperlipidemia 9. secondary Parkinson's 10. anemia chronic B12 deficiency 11. CKD III 12. hyponatremia chronic 13. pulmonary HTN 14. allergic rhinitis PLAN: pneumonia/AECOPD mucinex 1200mg bid albuterol nebulizer qid/budesonide bid O2 supplement zithromax/rocephin IV Decrease Solumedrol 60mg IV [id number]--[id number] persist Consult . CT chest-ground glass RUL RLL c/w pneumonia fever resolved Admit WBC 17.8 14.3-steroids DM II- not controlled FSBS SSI Increase Levemir to 24 units s/c bid and Humalog to 12 units s/c tid AC. Decrease IV Solumedrol BS [id number] -adjust SSI CKD III Abmit BUN 17 09/20/16 20 Cr 1.2 0.9 Na 131 131 2.1 Hypomagnesemia better. Mg 1.5 - 2.1 Increase Mag ox to bid-continue Na-monitor, is chronic r/t psych meds Schizophrenia/dementia/psychosis continue home medications DVT/GI prophylaxis SCD/MATEUS PPI For further plan of care, please refer to the orders Continue IV Zithromax/rocephin until discharge Discharge on Vantin DC initiated Plan Plan For further plan of care, please refer to the orders. LUIS FERNANDO YATES MD 09/20/16 0809: IM PROGRESS NOTES- Subjective Subjective c/o constipation,congestion. Assessment Assessment Constipation- start senna-s. Wheezing worse.Increase breathing Rx. Add Mucinex. BELLO MONTALVO APRN Sep 20, 2016 06:29 LUIS FERNANDO YATES MD Sep 20, 2016 08:09
--- NOTE | 2016-09-20 06:30 | DISCH ---
DISCHARGE FINAL DIAGNOSIS Problems Medical Problems: (1) COPD exacerbation Status: Acute (2) Fever Status: Acute (3) Hypoxia Status: Acute (4) Pneumonia Status: Acute CONDITION ON DISCHARGE: Stable SNF STAY <30 DAYS: Yes (PT OT ) POST DISCHARGE ORDERS ACTIVITY ORDERS: Activity as tolerated WEIGHT BEARING STATUS: Full weight bearing DIET AFTER DISCHARGE: Cardiac (No concentrated sweets) CHECKS AFTER DISCHARGE CHECKS AFTER DISCHARGE: Check blood sugar, ac/hs COMMENTS: VS per routine FOLLOW-UP PHYSICIAN FOLLOW-UP: Admit to facility MD LAB ORDERS FOR FOLLOW-UP: CBC with diff, CMP, prealbumin in AM TREATMENT/EQUIPMENT ORDERS RESPIRATORY EQUIPMENT NEEDED: Nebulizer (qid ) BELLO MONTALVO APRN Sep 20, 2016 06:30
[2016-09-20] MEDS ORDERED: ALBU2.5V5 NEB (06:45)
[2016-09-20] MEDS ORDERED: CEFP200T PO (06:45)
[2016-09-20] MEDS ORDERED: MAGN400T22 PO (06:45)
[2016-09-20] MEDS ORDERED: INSU100I17 SQ ×2 (06:45)
[2016-09-20] MEDS ORDERED: GUAI600T47 PO (06:45)
[2016-09-20] MEDS ORDERED: INSU100I27 SQ (06:45)
[2016-09-20] MEDS ORDERED: PRED-220 PO (06:47)
[2016-09-20 07:00] VITALS: BP 163/102
[2016-09-20] MEDS: INSULIN ASPART 300 UNITS/3 ML INSULN.PEN SQ SCH ×6 (07:30→17:33)
[2016-09-20] MEDS: AZITHROMYCIN 500 MG in IV NORMAL SALINE 250ML 250 ML IV SCH (07:36)
[2016-09-20] MEDS: PANTOPRAZOLE 40 MG TABLET.DR. PO SCH (07:36)
[2016-09-20] MEDS: ALBUTEROL SULFATE 2.5 MG/3 ML NEBU. NEB SCH ×4 (08:01→19:37)
[2016-09-20] MEDS: BUDESONIDE 0.5 MG/2 ML NEBU. NEB SCH ×2 (08:02→19:37)
[2016-09-20] MEDS: buPROPion XL 150 MG TAB.ER.24H. PO SCH (08:53)
[2016-09-20] MEDS: methylPREDNISolone SOD SUCC PF 125 MG/2 ML VIAL. IV SCH ×2 (08:53→21:50)
[2016-09-20] MEDS: CALCIUM CARB/VIT D3 500/200 TABLET. PO SCH (08:53)
[2016-09-20] MEDS: LORazepam 1 MG TABLET PO SCH ×2 (08:53→21:53)
[2016-09-20] MEDS: MAGNESIUM OXIDE 400 MG TABLET PO SCH ×2 (08:53→21:51)
[2016-09-20] MEDS: ASPIRIN ENTERIC COATED 81 MG TABLET.DR. PO SCH (08:53)
[2016-09-20] MEDS: MULTIVITAMIN with MINERAL TABLET. PO SCH (08:53)
[2016-09-20] MEDS: FLUTICASONE 50MCG/NASAL SPRAY 16GM BOTTLE. NS SCH (08:53)
[2016-09-20] MEDS: busPIRone 5 MG TABLET. PO SCH ×3 (08:54→21:53)
[2016-09-20] MEDS: SENNOSIDES/DOCUSATE 8.6/50MG TABLET. PO SCH (08:54)
[2016-09-20] MEDS: LOSARTAN POTASSIUM 50 MG TABLET. PO SCH (08:54)
[2016-09-20] MEDS ORDERED: FLUTICASONE 50MCG/NASAL SPRAY 16GM BOTTLE. NS SCH (09:00)
[2016-09-20] MEDS: INSULIN DETEMIR 300 UNITS/3 ML INSULN.PEN. SQ SCH ×2 (09:04→22:04)
--- NOTE | 2016-09-20 10:10 | PDOC ---
PULMONARY PROGRESS NOTES Subjective feels better Vitals Vital Signs Date Time Temp Pulse Resp B/P (MAP) Pulse Ox O2 Delivery O2 Flow Rate FiO2 09/20/16 08:54 87 163/102 09/20/16 08:07 90 Room Air 09/20/16 08:04 2.0 09/20/16 07:00 98.1 20 98.1 General: Alert, No acute distress Lungs: Wheezing (faint) Cardiovascular: S1 Abdomen: Soft Neuro Exam: Alert Extremities: No Edema Skin: Warm Labs Laboratory Tests Test 09/18/16 11:32 09/18/16 11:55 09/18/16 16:45 09/18/16 21:06 Glucose (Fingerstick) 435 mg/dL (70-99) 459 mg/dL (70-99) 393 mg/dL (70-99) Troponin I Quantitative < 0.017 ng/mL (0.000-0.055) Test 09/19/16 05:05 09/19/16 07:56 09/19/16 11:26 09/19/16 16:23 White Blood Count 14.2 x10^3/uL (4.0-11.0) Red Blood Count 3.52 x10^6/uL (3.50-5.40) Hemoglobin 9.3 g/dL (12.0-15.5) Hematocrit 29.1 % (36.0-47.0) Mean Corpuscular Volume 83 fL (79-100) Mean Corpuscular Hemoglobin 26 pg (25-35) Mean Corpuscular Hemoglobin Concent 32 g/dL (31-37) Red Cell Distribution Width 15.1 % (11.5-14.5) Platelet Count 319 x10^3/uL (140-400) Neutrophils (%) (Auto) 92 % (31-73) Lymphocytes (%) (Auto) 4 % (24-48) Monocytes (%) (Auto) 4 % (0-9) Eosinophils (%) (Auto) 0 % (0-3) Basophils (%) (Auto) 0 % (0-3) Neutrophils # (Auto) 13.1 x10^3uL (1.8-7.7) Lymphocytes # (Auto) 0.6 x10^3/uL (1.0-4.8) Monocytes # (Auto) 0.5 x10^3/uL (0.0-1.1) Eosinophils # (Auto) 0.0 x10^3/uL (0.0-0.7) Basophils # (Auto) 0.0 x10^3/uL (0.0-0.2) Sodium Level 136 mmol/L (136-145) Potassium Level 4.2 mmol/L (3.5-5.1) Chloride Level 100 mmol/L (98-107) Carbon Dioxide Level 25 mmol/L (21-32) Anion Gap 11 (6-14) Blood Urea Nitrogen 20 mg/dL (7-20) Creatinine 0.9 mg/dL (0.6-1.0) Estimated GFR (Cockcroft-Gault) 63.0 Glucose Level 345 mg/dL (70-99) Calcium Level 8.8 mg/dL (8.5-10.1) Magnesium Level 2.1 mg/dL (1.8-2.4) Glucose (Fingerstick) 316 mg/dL (70-99) 353 mg/dL (70-99) 224 mg/dL (70-99) Test 09/20/16 04:24 09/20/16 07:16 White Blood Count 14.3 x10^3/uL (4.0-11.0) Red Blood Count 3.39 x10^6/uL (3.50-5.40) Hemoglobin 9.1 g/dL (12.0-15.5) Hematocrit 27.3 % (36.0-47.0) Mean Corpuscular Volume 81 fL (79-100) Mean Corpuscular Hemoglobin 27 pg (25-35) Mean Corpuscular Hemoglobin Concent 33 g/dL (31-37) Red Cell Distribution Width 14.8 % (11.5-14.5) Platelet Count 347 x10^3/uL (140-400) Neutrophils (%) (Auto) 90 % (31-73) Lymphocytes (%) (Auto) 6 % (24-48) Monocytes (%) (Auto) 4 % (0-9) Eosinophils (%) (Auto) 0 % (0-3) Basophils (%) (Auto) 0 % (0-3) Neutrophils # (Auto) 12.9 x10^3uL (1.8-7.7) Lymphocytes # (Auto) 0.8 x10^3/uL (1.0-4.8) Monocytes # (Auto) 0.5 x10^3/uL (0.0-1.1) Eosinophils # (Auto) 0.0 x10^3/uL (0.0-0.7) Basophils # (Auto) 0.0 x10^3/uL (0.0-0.2) Sodium Level 131 mmol/L (136-145) Potassium Level 4.5 mmol/L (3.5-5.1) Chloride Level 97 mmol/L (98-107) Carbon Dioxide Level 26 mmol/L (21-32) Anion Gap 8 (6-14) Blood Urea Nitrogen 20 mg/dL (7-20) Creatinine 0.9 mg/dL (0.6-1.0) Estimated GFR (Cockcroft-Gault) 63.0 Glucose Level 262 mg/dL (70-99) Calcium Level 8.8 mg/dL (8.5-10.1) Magnesium Level 2.1 mg/dL (1.8-2.4) Glucose (Fingerstick) 275 mg/dL (70-99) Laboratory Tests Test 09/19/16 11:26 09/19/16 16:23 09/20/16 04:24 09/20/16 07:16 Glucose (Fingerstick) 353 mg/dL (70-99) 224 mg/dL (70-99) 275 mg/dL (70-99) White Blood Count 14.3 x10^3/uL (4.0-11.0) Red Blood Count 3.39 x10^6/uL (3.50-5.40) Hemoglobin 9.1 g/dL (12.0-15.5) Hematocrit 27.3 % (36.0-47.0) Mean Corpuscular Volume 81 fL (79-100) Mean Corpuscular Hemoglobin 27 pg (25-35) Mean Corpuscular Hemoglobin Concent 33 g/dL (31-37) Red Cell Distribution Width 14.8 % (11.5-14.5) Platelet Count 347 x10^3/uL (140-400) Neutrophils (%) (Auto) 90 % (31-73) Lymphocytes (%) (Auto) 6 % (24-48) Monocytes (%) (Auto) 4 % (0-9) Eosinophils (%) (Auto) 0 % (0-3) Basophils (%) (Auto) 0 % (0-3) Neutrophils # (Auto) 12.9 x10^3uL (1.8-7.7) Lymphocytes # (Auto) 0.8 x10^3/uL (1.0-4.8) Monocytes # (Auto) 0.5 x10^3/uL (0.0-1.1) Eosinophils # (Auto) 0.0 x10^3/uL (0.0-0.7) Basophils # (Auto) 0.0 x10^3/uL (0.0-0.2) Sodium Level 131 mmol/L (136-145) Potassium Level 4.5 mmol/L (3.5-5.1) Chloride Level 97 mmol/L (98-107) Carbon Dioxide Level 26 mmol/L (21-32) Anion Gap 8 (6-14) Blood Urea Nitrogen 20 mg/dL (7-20) Creatinine 0.9 mg/dL (0.6-1.0) Estimated GFR (Cockcroft-Gault) 63.0 Glucose Level 262 mg/dL (70-99) Calcium Level 8.8 mg/dL (8.5-10.1) Magnesium Level 2.1 mg/dL (1.8-2.4) Medications Active Scripts Medications Dose Route/Sig Max Daily Dose Days Date Category Dose Instructions Prednisone 10 Mg Tablet 10 Mg PO DIRECTED 09/20/16 Rx Take by mouth daily: 4 tab x 4d, 3 tab x 4d, 2 tab x 4d, 1 tab x 4d Cefpodoxime Proxetil 200 Mg Tablet 1 Tab PO BID 5 09/20/16 Rx Novolog Flexpen (Insulin Aspart) 100 Unit/1 Ml Insuln.pen 0-12 Unit SQ TIDAC 09/20/16 Rx inject subq tid ac: 101-150=2unit, 151-200=3 unit, 201-250=4 unit, 251-300=6 unit, 301-350=8 unit, 351-400=10 unit >401 call Mag-Oxide (Magnesium Oxide) 400 Mg Tablet 400 Mg PO BID 09/20/16 Rx Take one tablet two times daily by mouth Levemir Flextouch (Insulin Detemir) 100 Unit/1 Ml Insuln.pen 24 Units SQ BID 09/20/16 Rx Inject subq bid Novolog Flexpen (Insulin Aspart) 100 Unit/1 Ml Insuln.pen 12 Units SQ TIDAC 09/20/16 Rx Inject 12 units tid ac Mucinex (Guaifenesin) 600 Mg Tablet.er 1,200 Mg PO BID 09/20/16 Rx TAke by mouth bid for 5 days Albuterol Sulfate Neb Soln (Albuterol Sulfate) 2.5 Mg/3 Ml Vial.neb 2.5 Mg NEB QID 09/20/16 Rx Nebulizer treatment QID and prn q2hr for shortness of breath Tylenol Extra Strength (Acetaminophen) 500 Mg Tablet 1,000 Mg PO Q8HRS PRN 09/18/16 Reported Tizanidine Hcl 4 Mg Tablet 1 Tab PO QHS 09/18/16 Reported Montelukast Sodium Tablet (Montelukast Sodium) 10 Mg Tablet 10 Mg PO HS 09/18/16 Reported Simethicone 100 Ml Liquid 30 Ml MC Q4HRS PRN 09/18/16 Reported Novolog (Insulin Aspart) 100 Unit/1 Ml Cartridge 10 Unit SQ TIDWMEALS 09/18/16 Reported Multivitamins (Multivitamin) 1 Each Tablet 1 Tab PO DAILY 09/18/16 Reported Losartan Potassium 50 Mg Tablet 50 Mg PO DAILY 09/18/16 Reported Haloperidol 2 Mg Tablet 1 Tab PO QHS 09/18/16 Reported Glucagon Emergency Kit (Glucagon,Human Recombinant) 1 Mg Kit 1 Mg IM PRN 09/18/16 Reported Flonase Allergy Relief (Fluticasone Propionate) 9.9 Ml [place].susp 2 Sprays NS DAILY 09/18/16 Reported Fluoxetine Hcl 20 Mg Tablet 3 Tab PO QHS 09/18/16 Reported Breo Ellipta 100-25 Mcg Inh (Fluticasone/Vilanterol) 1 Each Aer.pow.ba 1 Puff IH DAILY 09/18/16 Reported Biofreeze (Menthol) 118 Ml Gel..ml. 118 Ml TP PRN PRN 09/18/16 Reported lower back and right shoulder Benztropine Mesylate 0.5 Mg Tablet 0.5 Tab PO QHS 09/18/16 Reported Ativan (Lorazepam) 1 Mg Tablet 1 Mg PO BID 09/18/16 Reported Artificial Tears Eye Drops (Dextran 70/Hypromellose) 15 Ml Drops 2 Drop EACHEYE QID 09/18/16 Reported Wellbutrin Xl (Bupropion Hcl) 150 Mg Tab.er.24h 1 Tab PO DAILY 09/27/14 Reported Vaseline White Petroleum (Petrolatum,White) 5 Gm Oint.pack 1 Gm TP HS 09/27/14 Reported Spiriva (Tiotropium [place]) 18 Mcg Cap.w.dev 1 Cap IH DAILY 09/27/14 Reported Simvastatin 20 Mg Tablet 20 Mg PO HS 09/27/14 Reported Ranitidine Hcl 300 Mg Tablet 1 Tab PO QHS 09/27/14 Reported Protonix (Pantoprazole Sodium) 40 Mg Tablet.dr 1 Tab PO DAILY 09/27/14 Reported Calcium 500 + Vit D 200 Tablet (Calcium Carbonate/Vitamin D3) 1 Each Tablet 1 Tab PO DAILY 09/27/14 Reported Alum-Mag Hydroxide-Simeth Liq (Mag Hydrox/Al Hydrox/Simeth) 360 Ml Oral.susp 30 Ml PO PRN Q4HRS PRN 09/27/14 Reported Isopto Tears (Hypromellose) 15 Ml Drops 15 Ml OP PRN Q6HRS PRN 09/27/14 Reported Anti-Diarrhea (Loperamide Hcl) 2 Mg Tablet 2 Mg PO PRN Q8HRS PRN 09/27/14 Reported Glucose Gel (Dextrose) 38 Gm Gel..gram. 38 Gm PO PRN PRN 09/27/14 Reported Donepezil Hcl 5 Mg Tablet 1 Tab PO HS 09/27/14 Reported Cyanocobalamin Injection (Cyanocobalamin (Vitamin B-12)) 1,000 Mcg/1 Ml Vial 1 Ml IM QMONTH 09/27/14 Reported Buspirone Hcl 5 Mg Tablet 1 Tab PO TID 09/27/14 Reported Aspirin Ec (Aspirin) 81 Mg Tablet.dr 1 Tab PO DAILY 09/27/14 Reported Proair Hfa Inhaler (Albuterol Sulfate) 8.5 Gm Hfa.aer.ad 2 Puff IH PRN Q6HRS PRN 09/27/14 Reported Impression . 1. Dyspnea with acute hypoxic respiratory failure secondary to acute exacerbation of chronic obstructive pulmonary disease and pneumonia.for further evaluation. 2. Abnormal ct chest with diffuse GG right lung infiltrates c/w pneumonia 3. A 35 years of tobacco use. Recently quit 2 weeks ago. 4. Leukocytosis secondary to pneumonia. Plan . 1. Continue with present DuoNebs. 2. Continue empiric antibiotics, Zithromax and Rocephin. 3. IV steroids. 4. repeat CT chest in 4-6 weeks 5. Follow white cell count. 6. oxygen PRASHANTH DURAN MD Sep 20, 2016 10:10
[2016-09-20 11:00] VITALS: BP 180/85
[2016-09-20 14:44] VITALS: BP 185/86
[2016-09-20 19:00] VITALS: BP 157/82
[2016-09-20] MEDS: FAMOTIDINE 20 MG TABLET. PO SCH (21:51)
[2016-09-20] MEDS: FLUoxetine HCL 20 MG CAPSULE PO SCH (21:51)
[2016-09-20] MEDS: MONTELUKAST SODIUM 10 MG TABLET. PO SCH (21:52)
[2016-09-20] MEDS: SIMVASTATIN 20 MG TABLET PO SCH (21:52)
[2016-09-20] MEDS: HALOPERIDOL 2 MG TABLET. PO SCH (21:52)
[2016-09-20] MEDS: DONEPEZIL HCL 5 MG TABLET. PO SCH (21:52)
[2016-09-20] MEDS: BENZTROPINE MESYLATE 1 MG TABLET. PO SCH (21:53)
[2016-09-20] MEDS: tiZANidine 4 MG TABLET. PO SCH (21:53)
[2016-09-20 23:00] VITALS: BP 159/89
[2016-09-20] MEDS: ALBUTEROL SULFATE 2.5 MG/3 ML NEBU. NEB PRN (23:17)
[2016-09-21 03:04] VITALS: BP 157/85
[2016-09-21 06:06] LABS: BASO % 0 % (0-3); EOS % 0 % (0-3); HEMATOCRIT 29.3 % (36.0-47.0); HEMOGLOBIN 9.4 g/dL (12.0-15.5); LYMPH # 1.1 x10^3/uL (1.0-4.8); LYMPH % 9 % (24-48); MEAN CORPUSCULAR HEMOGLOBIN 26 pg (25-35); MEAN CORPUSCULAR HGB CONC 32 g/dL (31-37); MEAN CORPUSCULAR VOLUME 82 fL (79-100); MONO % 9 % (0-9); NEUT % 82 % (31-73); PLATELET COUNT 332 x10^3/uL (140-400); RED BLOOD COUNT 3.57 x10^6/uL (3.50-5.40); RED CELL DISTRIBUTION WIDTH 14.8 % (11.5-14.5); WHITE BLOOD COUNT 11.6 x10^3/uL (4.0-11.0)
[2016-09-21] MEDS: PANTOPRAZOLE 40 MG TABLET.DR. PO SCH (06:06)
[2016-09-21] MEDS: AZITHROMYCIN 500 MG in IV NORMAL SALINE 250ML 250 ML IV SCH (06:06)
[2016-09-21] MEDS: BUDESONIDE 0.5 MG/2 ML NEBU. NEB SCH ×2 (06:18→19:21)
[2016-09-21] MEDS: ALBUTEROL SULFATE 2.5 MG/3 ML NEBU. NEB SCH ×4 (06:18→19:21)
[2016-09-21 06:35] LABS: CALCIUM 8.9 mg/dL (8.5-10.1); CREATININE 0.8 mg/dL (0.6-1.0); GFR 72.2; MAGNESIUM 2.1 mg/dL (1.8-2.4); POTASSIUM 4.7 mmol/L (3.5-5.1)
[2016-09-21] MEDS: INSULIN ASPART 300 UNITS/3 ML INSULN.PEN SQ SCH ×6 (07:30→18:07)
[2016-09-21 07:35] VITALS: BP 137/71
--- NOTE | 2016-09-21 07:40 | PDOC ---
KATIABELLO DUCK FARMER 09/21/16 0740: IM PROGRESS NOTES- Subjective Subjective constipation improved Objective Objective alert, no distress Vitals Vital Signs Date Time Temp Pulse Resp B/P (MAP) Pulse Ox O2 Delivery O2 Flow Rate FiO2 09/21/16 06:18 Nasal Cannula 2.0 09/21/16 03:04 97.8 80 20 157/85 (109) 92 97.8 Input & Output Intake and Output 09/21/16 07:00 Intake Total 2850 ml Balance 2850 ml Intake Oral 2550 ml IV Total 300 ml # Voids 6 Physical Exam Physical Exam General appearance - alert,ill appearing, and in mild distress and oriented to person, place, and time Mental Status - alert, oriented to person, place, and time, affect appropriate to mood Head - normal Chest - bilateral wheezing, upper airways > lower airways Heart - S1 and S2 normal Abdomen - soft, nontender, nondistended, no masses or organomegaly Neurological - alert and oriented Musculoskeletal - no muscular tenderness noted Extremities - no pedal edema Skin - warm and dry Labs Laboratory Tests Test 09/19/16 07:56 09/19/16 11:26 09/19/16 16:23 09/20/16 04:24 Glucose (Fingerstick) 316 mg/dL (70-99) 353 mg/dL (70-99) 224 mg/dL (70-99) White Blood Count 14.3 x10^3/uL (4.0-11.0) Red Blood Count 3.39 x10^6/uL (3.50-5.40) Hemoglobin 9.1 g/dL (12.0-15.5) Hematocrit 27.3 % (36.0-47.0) Mean Corpuscular Volume 81 fL (79-100) Mean Corpuscular Hemoglobin 27 pg (25-35) Mean Corpuscular Hemoglobin Concent 33 g/dL (31-37) Red Cell Distribution Width 14.8 % (11.5-14.5) Platelet Count 347 x10^3/uL (140-400) Neutrophils (%) (Auto) 90 % (31-73) Lymphocytes (%) (Auto) 6 % (24-48) Monocytes (%) (Auto) 4 % (0-9) Eosinophils (%) (Auto) 0 % (0-3) Basophils (%) (Auto) 0 % (0-3) Neutrophils # (Auto) 12.9 x10^3uL (1.8-7.7) Lymphocytes # (Auto) 0.8 x10^3/uL (1.0-4.8) Monocytes # (Auto) 0.5 x10^3/uL (0.0-1.1) Eosinophils # (Auto) 0.0 x10^3/uL (0.0-0.7) Basophils # (Auto) 0.0 x10^3/uL (0.0-0.2) Sodium Level 131 mmol/L (136-145) Potassium Level 4.5 mmol/L (3.5-5.1) Chloride Level 97 mmol/L (98-107) Carbon Dioxide Level 26 mmol/L (21-32) Anion Gap 8 (6-14) Blood Urea Nitrogen 20 mg/dL (7-20) Creatinine 0.9 mg/dL (0.6-1.0) Estimated GFR (Cockcroft-Gault) 63.0 Glucose Level 262 mg/dL (70-99) Calcium Level 8.8 mg/dL (8.5-10.1) Magnesium Level 2.1 mg/dL (1.8-2.4) Test 09/20/16 07:16 09/20/16 10:35 09/20/16 16:33 09/20/16 20:22 Glucose (Fingerstick) 275 mg/dL (70-99) 327 mg/dL (70-99) 145 mg/dL (70-99) 227 mg/dL (70-99) Test 09/21/16 05:40 White Blood Count 11.6 x10^3/uL (4.0-11.0) Red Blood Count 3.57 x10^6/uL (3.50-5.40) Hemoglobin 9.4 g/dL (12.0-15.5) Hematocrit 29.3 % (36.0-47.0) Mean Corpuscular Volume 82 fL (79-100) Mean Corpuscular Hemoglobin 26 pg (25-35) Mean Corpuscular Hemoglobin Concent 32 g/dL (31-37) Red Cell Distribution Width 14.8 % (11.5-14.5) Platelet Count 332 x10^3/uL (140-400) Neutrophils (%) (Auto) 82 % (31-73) Lymphocytes (%) (Auto) 9 % (24-48) Monocytes (%) (Auto) 9 % (0-9) Eosinophils (%) (Auto) 0 % (0-3) Basophils (%) (Auto) 0 % (0-3) Neutrophils # (Auto) 9.5 x10^3uL (1.8-7.7) Lymphocytes # (Auto) 1.1 x10^3/uL (1.0-4.8) Monocytes # (Auto) 1.0 x10^3/uL (0.0-1.1) Eosinophils # (Auto) 0.0 x10^3/uL (0.0-0.7) Basophils # (Auto) 0.0 x10^3/uL (0.0-0.2) Sodium Level 138 mmol/L (136-145) Potassium Level 4.7 mmol/L (3.5-5.1) Chloride Level 102 mmol/L (98-107) Carbon Dioxide Level 30 mmol/L (21-32) Anion Gap 6 (6-14) Blood Urea Nitrogen 18 mg/dL (7-20) Creatinine 0.8 mg/dL (0.6-1.0) Estimated GFR (Cockcroft-Gault) 72.2 Glucose Level 127 mg/dL (70-99) Calcium Level 8.9 mg/dL (8.5-10.1) Magnesium Level 2.1 mg/dL (1.8-2.4) Laboratory Tests Test 09/20/16 10:35 09/20/16 16:33 09/20/16 20:22 09/21/16 05:40 Glucose (Fingerstick) 327 mg/dL (70-99) 145 mg/dL (70-99) 227 mg/dL (70-99) White Blood Count 11.6 x10^3/uL (4.0-11.0) Red Blood Count 3.57 x10^6/uL (3.50-5.40) Hemoglobin 9.4 g/dL (12.0-15.5) Hematocrit 29.3 % (36.0-47.0) Mean Corpuscular Volume 82 fL (79-100) Mean Corpuscular Hemoglobin 26 pg (25-35) Mean Corpuscular Hemoglobin Concent 32 g/dL (31-37) Red Cell Distribution Width 14.8 % (11.5-14.5) Platelet Count 332 x10^3/uL (140-400) Neutrophils (%) (Auto) 82 % (31-73) Lymphocytes (%) (Auto) 9 % (24-48) Monocytes (%) (Auto) 9 % (0-9) Eosinophils (%) (Auto) 0 % (0-3) Basophils (%) (Auto) 0 % (0-3) Neutrophils # (Auto) 9.5 x10^3uL (1.8-7.7) Lymphocytes # (Auto) 1.1 x10^3/uL (1.0-4.8) Monocytes # (Auto) 1.0 x10^3/uL (0.0-1.1) Eosinophils # (Auto) 0.0 x10^3/uL (0.0-0.7) Basophils # (Auto) 0.0 x10^3/uL (0.0-0.2) Sodium Level 138 mmol/L (136-145) Potassium Level 4.7 mmol/L (3.5-5.1) Chloride Level 102 mmol/L (98-107) Carbon Dioxide Level 30 mmol/L (21-32) Anion Gap 6 (6-14) Blood Urea Nitrogen 18 mg/dL (7-20) Creatinine 0.8 mg/dL (0.6-1.0) Estimated GFR (Cockcroft-Gault) 72.2 Glucose Level 127 mg/dL (70-99) Calcium Level 8.9 mg/dL (8.5-10.1) Magnesium Level 2.1 mg/dL (1.8-2.4) Meds Current Medications Albuterol Sulfate (Ventolin Neb Soln) 2.5 mg PRN Q4HRS PRN NEB SHORTNESS OF BREATH Last administered on 09/20/16 23:17; Start 09/20/16 at 08:15 Ceftriaxone Sodium 1 gm/ Sodium Chloride 50 ml @ 100 mls/hr Q24H IV Last administered on 09/20/16 08:55; Start 09/20/16 at 09:00 Cyanocobalamin (Vitamin B-12) 1,000 mcg QMONTH IM ; Start 10/18/16 at 09:00 Fluticasone Propionate (Flonase) 2 spray DAILY NS ; Start 09/20/16 at 09:00; Status UNV Guaifenesin (Mucinex) 600 mg BID PO Last administered on 09/20/16 21:52; Start 09/20/16 at 09:00 Senna/Docusate Sodium (Senna Plus) 2 tab DAILY10 PO Last administered on 08:54; Start 09/20/16 at 10:00 Assessment Assessment 1. HCFA pneumonia grm neg/gram+ 2. AECOPD 3. dementia with psychosis 4. schizoaffective disorder 5. hyperlipidemia 6. DM II fpc insulin 7. HTN 8..hyperlipidemia 9. secondary Parkinson's 10. anemia chronic B12 deficiency 11. CKD III 12. hyponatremia chronic 13. pulmonary HTN 14. allergic rhinitis PLAN: pneumonia/AECOPD mucinex 1200mg bid albuterol nebulizer qid/budesonide bid O2 supplement zithromax/rocephin IV Decrease Solumedrol 60mg IV [id number] persist Consult . CT chest-ground glass RUL RLL c/w pneumonia-repeat CT chest 4-6 weeks fever resolved Admit WBC 17.8 06/.05 11.6 09/21 wheezing persist -minimal improvement DM II- not controlled FSBS SSI Increase Levemir to 24 units s/c bid and Humalog to 12 units s/c tid AC. Decrease IV Solumedrol BS 127-327 CKD III Abmit BUN 17 09/21 18 Cr 1.2 0.8 Na 131 131 2.1 Hypomagnesemia better. Mg 1.5 - 2.1 Increase Mag ox to bid-continue Na-monitor, is chronic r/t psych meds Schizophrenia/dementia/psychosis continue home medications DVT/GI prophylaxis SCD/MATEUS PPI constipation sennokot BM last evening Continue IV Zithromax/rocephin until discharge Discharge on Vantin, tapering steroids DC initiated For further plan of care, please refer to the orders Plan Plan For further plan of care, please refer to the orders. LUIS FERNANDO YATES MD 09/21/16 0916: IM PROGRESS NOTES- Assessment Assessment CT chest- dat infiltrates. Clinically whhezing is much better. Discharge in 1-2 days. The patient was seen and examined by me. Chart reviewed and plan of care formulated. Discussed with, reviewed and agree with KIER DRIER's notes, plan of care and orders with modifications as necessary. For more details regarding further plans, please refer to the orders. BELLO MONTALVO APRN Sep 21, 2016 07:40 LUIS FERNANDO YATES MD Sep 21, 2016 09:16
[2016-09-21] MEDS: MAGNESIUM OXIDE 400 MG TABLET PO SCH ×2 (08:30→22:06)
[2016-09-21] MEDS: CALCIUM CARB/VIT D3 500/200 TABLET. PO SCH (08:30)
[2016-09-21] MEDS: buPROPion XL 150 MG TAB.ER.24H. PO SCH (08:30)
[2016-09-21] MEDS: MULTIVITAMIN with MINERAL TABLET. PO SCH (08:31)
[2016-09-21] MEDS: LORazepam 1 MG TABLET PO SCH ×2 (08:31→22:06)
[2016-09-21] MEDS: ASPIRIN ENTERIC COATED 81 MG TABLET.DR. PO SCH (08:31)
[2016-09-21] MEDS: methylPREDNISolone SOD SUCC PF 125 MG/2 ML VIAL. IV SCH ×2 (08:32→22:04)
[2016-09-21] MEDS: FLUTICASONE 50MCG/NASAL SPRAY 16GM BOTTLE. NS SCH (08:32)
[2016-09-21] MEDS: busPIRone 5 MG TABLET. PO SCH ×3 (08:32→22:06)
[2016-09-21] MEDS: LOSARTAN POTASSIUM 50 MG TABLET. PO SCH (08:33)
[2016-09-21] MEDS: SENNOSIDES/DOCUSATE 8.6/50MG TABLET. PO SCH (08:46)
[2016-09-21] MEDS: INSULIN DETEMIR 300 UNITS/3 ML INSULN.PEN. SQ SCH ×2 (08:46→22:20)
[2016-09-21 10:33] VITALS: BP 191/96
[2016-09-21 15:30] VITALS: BP_SYST 109; BP_SYST 192; BP_DIAS 63; BP_DIAS 99
--- NOTE | 2016-09-21 17:21 | PDOC ---
PULMONARY PROGRESS NOTES Subjective feels better Vitals Vital Signs Date Time Temp Pulse Resp B/P (MAP) Pulse Ox O2 Delivery O2 Flow Rate FiO2 09/21/16 15:39 Nasal Cannula 2.0 09/21/16 10:33 97.9 85 18 191/96 (127) 97 97.9 ROS: No Nausea, No Chest Pain, No Abdominal Pain, No Increase Cough General: Alert, No acute distress Lungs: Clear Cardiovascular: S1 Abdomen: Soft Neuro Exam: Alert Extremities: No Edema Skin: Warm Labs Laboratory Tests Test 09/20/16 04:24 09/20/16 07:16 09/20/16 10:35 09/20/16 16:33 White Blood Count 14.3 x10^3/uL (4.0-11.0) Red Blood Count 3.39 x10^6/uL (3.50-5.40) Hemoglobin 9.1 g/dL (12.0-15.5) Hematocrit 27.3 % (36.0-47.0) Mean Corpuscular Volume 81 fL (79-100) Mean Corpuscular Hemoglobin 27 pg (25-35) Mean Corpuscular Hemoglobin Concent 33 g/dL (31-37) Red Cell Distribution Width 14.8 % (11.5-14.5) Platelet Count 347 x10^3/uL (140-400) Neutrophils (%) (Auto) 90 % (31-73) Lymphocytes (%) (Auto) 6 % (24-48) Monocytes (%) (Auto) 4 % (0-9) Eosinophils (%) (Auto) 0 % (0-3) Basophils (%) (Auto) 0 % (0-3) Neutrophils # (Auto) 12.9 x10^3uL (1.8-7.7) Lymphocytes # (Auto) 0.8 x10^3/uL (1.0-4.8) Monocytes # (Auto) 0.5 x10^3/uL (0.0-1.1) Eosinophils # (Auto) 0.0 x10^3/uL (0.0-0.7) Basophils # (Auto) 0.0 x10^3/uL (0.0-0.2) Sodium Level 131 mmol/L (136-145) Potassium Level 4.5 mmol/L (3.5-5.1) Chloride Level 97 mmol/L (98-107) Carbon Dioxide Level 26 mmol/L (21-32) Anion Gap 8 (6-14) Blood Urea Nitrogen 20 mg/dL (7-20) Creatinine 0.9 mg/dL (0.6-1.0) Estimated GFR (Cockcroft-Gault) 63.0 Glucose Level 262 mg/dL (70-99) Calcium Level 8.8 mg/dL (8.5-10.1) Magnesium Level 2.1 mg/dL (1.8-2.4) Glucose (Fingerstick) 275 mg/dL (70-99) 327 mg/dL (70-99) 145 mg/dL (70-99) Test 09/20/16 20:22 09/21/16 05:40 09/21/16 07:38 09/21/16 11:22 Glucose (Fingerstick) 227 mg/dL (70-99) 119 mg/dL (70-99) 198 mg/dL (70-99) White Blood Count 11.6 x10^3/uL (4.0-11.0) Red Blood Count 3.57 x10^6/uL (3.50-5.40) Hemoglobin 9.4 g/dL (12.0-15.5) Hematocrit 29.3 % (36.0-47.0) Mean Corpuscular Volume 82 fL (79-100) Mean Corpuscular Hemoglobin 26 pg (25-35) Mean Corpuscular Hemoglobin Concent 32 g/dL (31-37) Red Cell Distribution Width 14.8 % (11.5-14.5) Platelet Count 332 x10^3/uL (140-400) Neutrophils (%) (Auto) 82 % (31-73) Lymphocytes (%) (Auto) 9 % (24-48) Monocytes (%) (Auto) 9 % (0-9) Eosinophils (%) (Auto) 0 % (0-3) Basophils (%) (Auto) 0 % (0-3) Neutrophils # (Auto) 9.5 x10^3uL (1.8-7.7) Lymphocytes # (Auto) 1.1 x10^3/uL (1.0-4.8) Monocytes # (Auto) 1.0 x10^3/uL (0.0-1.1) Eosinophils # (Auto) 0.0 x10^3/uL (0.0-0.7) Basophils # (Auto) 0.0 x10^3/uL (0.0-0.2) Sodium Level 138 mmol/L (136-145) Potassium Level 4.7 mmol/L (3.5-5.1) Chloride Level 102 mmol/L (98-107) Carbon Dioxide Level 30 mmol/L (21-32) Anion Gap 6 (6-14) Blood Urea Nitrogen 18 mg/dL (7-20) Creatinine 0.8 mg/dL (0.6-1.0) Estimated GFR (Cockcroft-Gault) 72.2 Glucose Level 127 mg/dL (70-99) Calcium Level 8.9 mg/dL (8.5-10.1) Magnesium Level 2.1 mg/dL (1.8-2.4) Laboratory Tests Test 09/20/16 20:22 09/21/16 05:40 09/21/16 07:38 09/21/16 11:22 Glucose (Fingerstick) 227 mg/dL (70-99) 119 mg/dL (70-99) 198 mg/dL (70-99) White Blood Count 11.6 x10^3/uL (4.0-11.0) Red Blood Count 3.57 x10^6/uL (3.50-5.40) Hemoglobin 9.4 g/dL (12.0-15.5) Hematocrit 29.3 % (36.0-47.0) Mean Corpuscular Volume 82 fL (79-100) Mean Corpuscular Hemoglobin 26 pg (25-35) Mean Corpuscular Hemoglobin Concent 32 g/dL (31-37) Red Cell Distribution Width 14.8 % (11.5-14.5) Platelet Count 332 x10^3/uL (140-400) Neutrophils (%) (Auto) 82 % (31-73) Lymphocytes (%) (Auto) 9 % (24-48) Monocytes (%) (Auto) 9 % (0-9) Eosinophils (%) (Auto) 0 % (0-3) Basophils (%) (Auto) 0 % (0-3) Neutrophils # (Auto) 9.5 x10^3uL (1.8-7.7) Lymphocytes # (Auto) 1.1 x10^3/uL (1.0-4.8) Monocytes # (Auto) 1.0 x10^3/uL (0.0-1.1) Eosinophils # (Auto) 0.0 x10^3/uL (0.0-0.7) Basophils # (Auto) 0.0 x10^3/uL (0.0-0.2) Sodium Level 138 mmol/L (136-145) Potassium Level 4.7 mmol/L (3.5-5.1) Chloride Level 102 mmol/L (98-107) Carbon Dioxide Level 30 mmol/L (21-32) Anion Gap 6 (6-14) Blood Urea Nitrogen 18 mg/dL (7-20) Creatinine 0.8 mg/dL (0.6-1.0) Estimated GFR (Cockcroft-Gault) 72.2 Glucose Level 127 mg/dL (70-99) Calcium Level 8.9 mg/dL (8.5-10.1) Magnesium Level 2.1 mg/dL (1.8-2.4) Medications Active Scripts Medications Dose Route/Sig Max Daily Dose Days Date Category Dose Instructions Prednisone 10 Mg Tablet 10 Mg PO DIRECTED 09/20/16 Rx Take by mouth daily: 4 tab x 4d, 3 tab x 4d, 2 tab x 4d, 1 tab x 4d Cefpodoxime Proxetil 200 Mg Tablet 1 Tab PO BID 5 09/20/16 Rx Novolog Flexpen (Insulin Aspart) 100 Unit/1 Ml Insuln.pen 0-12 Unit SQ TIDAC 09/20/16 Rx inject subq tid ac: 101-150=2unit, 151-200=3 unit, 201-250=4 unit, 251-300=6 unit, 301-350=8 unit, 351-400=10 unit >401 call Mag-Oxide (Magnesium Oxide) 400 Mg Tablet 400 Mg PO BID 09/20/16 Rx Take one tablet two times daily by mouth Levemir Flextouch (Insulin Detemir) 100 Unit/1 Ml Insuln.pen 24 Units SQ BID 09/20/16 Rx Inject subq bid Novolog Flexpen (Insulin Aspart) 100 Unit/1 Ml Insuln.pen 12 Units SQ TIDAC 09/20/16 Rx Inject 12 units tid ac Mucinex (Guaifenesin) 600 Mg Tablet.er 1,200 Mg PO BID 09/20/16 Rx TAke by mouth bid for 5 days Albuterol Sulfate Neb Soln (Albuterol Sulfate) 2.5 Mg/3 Ml Vial.neb 2.5 Mg NEB QID 09/20/16 Rx Nebulizer treatment QID and prn q2hr for shortness of breath Tylenol Extra Strength (Acetaminophen) 500 Mg Tablet 1,000 Mg PO Q8HRS PRN 09/18/16 Reported Tizanidine Hcl 4 Mg Tablet 1 Tab PO QHS 09/18/16 Reported Montelukast Sodium Tablet (Montelukast Sodium) 10 Mg Tablet 10 Mg PO HS 09/18/16 Reported Simethicone 100 Ml Liquid 30 Ml MC Q4HRS PRN 09/18/16 Reported Novolog (Insulin Aspart) 100 Unit/1 Ml Cartridge 10 Unit SQ TIDWMEALS 09/18/16 Reported Multivitamins (Multivitamin) 1 Each Tablet 1 Tab PO DAILY 09/18/16 Reported Losartan Potassium 50 Mg Tablet 50 Mg PO DAILY 09/18/16 Reported Haloperidol 2 Mg Tablet 1 Tab PO QHS 09/18/16 Reported Glucagon Emergency Kit (Glucagon,Human Recombinant) 1 Mg Kit 1 Mg IM PRN 09/18/16 Reported Flonase Allergy Relief (Fluticasone Propionate) 9.9 Ml [place].susp 2 Sprays NS DAILY 09/18/16 Reported Fluoxetine Hcl 20 Mg Tablet 3 Tab PO QHS 09/18/16 Reported Breo Ellipta 100-25 Mcg Inh (Fluticasone/Vilanterol) 1 Each Aer.pow.ba 1 Puff IH DAILY 09/18/16 Reported Biofreeze (Menthol) 118 Ml Gel..ml. 118 Ml TP PRN PRN 09/18/16 Reported lower back and right shoulder Benztropine Mesylate 0.5 Mg Tablet 0.5 Tab PO QHS 09/18/16 Reported Ativan (Lorazepam) 1 Mg Tablet 1 Mg PO BID 09/18/16 Reported Artificial Tears Eye Drops (Dextran 70/Hypromellose) 15 Ml Drops 2 Drop EACHEYE QID 09/18/16 Reported Wellbutrin Xl (Bupropion Hcl) 150 Mg Tab.er.24h 1 Tab PO DAILY 09/27/14 Reported Vaseline White Petroleum (Petrolatum,White) 5 Gm Oint.pack 1 Gm TP HS 09/27/14 Reported Spiriva (Tiotropium [place]) 18 Mcg Cap.w.dev 1 Cap IH DAILY 09/27/14 Reported Simvastatin 20 Mg Tablet 20 Mg PO HS 09/27/14 Reported Ranitidine Hcl 300 Mg Tablet 1 Tab PO QHS 09/27/14 Reported Protonix (Pantoprazole Sodium) 40 Mg Tablet.dr 1 Tab PO DAILY 09/27/14 Reported Calcium 500 + Vit D 200 Tablet (Calcium Carbonate/Vitamin D3) 1 Each Tablet 1 Tab PO DAILY 09/27/14 Reported Alum-Mag Hydroxide-Simeth Liq (Mag Hydrox/Al Hydrox/Simeth) 360 Ml Oral.susp 30 Ml PO PRN Q4HRS PRN 09/27/14 Reported Isopto Tears (Hypromellose) 15 Ml Drops 15 Ml OP PRN Q6HRS PRN 09/27/14 Reported Anti-Diarrhea (Loperamide Hcl) 2 Mg Tablet 2 Mg PO PRN Q8HRS PRN 09/27/14 Reported Glucose Gel (Dextrose) 38 Gm Gel..gram. 38 Gm PO PRN PRN 09/27/14 Reported Donepezil Hcl 5 Mg Tablet 1 Tab PO HS 09/27/14 Reported Cyanocobalamin Injection (Cyanocobalamin (Vitamin B-12)) 1,000 Mcg/1 Ml Vial 1 Ml IM QMONTH 09/27/14 Reported Buspirone Hcl 5 Mg Tablet 1 Tab PO TID 09/27/14 Reported Aspirin Ec (Aspirin) 81 Mg Tablet.dr 1 Tab PO DAILY 09/27/14 Reported Proair Hfa Inhaler (Albuterol Sulfate) 8.5 Gm Hfa.aer.ad 2 Puff IH PRN Q6HRS PRN 09/27/14 Reported Impression . 1. acute hypoxic respiratory failure secondary to acute exacerbation of chronic obstructive pulmonary disease and pneumonia. 2. Abnormal ct chest with diffuse GG right lung infiltrates c/w pneumonia 3. A 35 years of tobacco use. Recently quit 2 weeks ago. 4. Leukocytosis secondary to pneumonia. Plan . ok to d/c in am, taper pred follow up in office repeat CT of chest in 6 weeks 6 min walk GARRETT XIAO MD Sep 21, 2016 17:21
[2016-09-21 19:00] VITALS: BP 159/73
[2016-09-21] MEDS: FLUoxetine HCL 20 MG CAPSULE PO SCH (22:05)
[2016-09-21] MEDS: FAMOTIDINE 20 MG TABLET. PO SCH (22:06)
[2016-09-21] MEDS: HALOPERIDOL 2 MG TABLET. PO SCH (22:06)
[2016-09-21] MEDS: tiZANidine 4 MG TABLET. PO SCH (22:06)
[2016-09-21] MEDS: DONEPEZIL HCL 5 MG TABLET. PO SCH (22:06)
[2016-09-21] MEDS: BENZTROPINE MESYLATE 1 MG TABLET. PO SCH (22:07)
[2016-09-21] MEDS: MONTELUKAST SODIUM 10 MG TABLET. PO SCH (22:07)
[2016-09-21] MEDS: SIMVASTATIN 20 MG TABLET PO SCH (22:08)
[2016-09-21] MEDS: ALBUTEROL SULFATE 2.5 MG/3 ML NEBU. NEB PRN (22:09)
[2016-09-21 23:00] VITALS: BP 149/72
[2016-09-22 04:01] LABS: BASO % 0 % (0-3); EOS % 0 % (0-3); HEMATOCRIT 28.7 % (36.0-47.0); HEMOGLOBIN 9.3 g/dL (12.0-15.5); LYMPH # 1.3 x10^3/uL (1.0-4.8); LYMPH % 10 % (24-48); MEAN CORPUSCULAR HEMOGLOBIN 26 pg (25-35); MEAN CORPUSCULAR HGB CONC 32 g/dL (31-37); MEAN CORPUSCULAR VOLUME 82 fL (79-100); MONO % 6 % (0-9); NEUT % 83 % (31-73); PLATELET COUNT 368 x10^3/uL (140-400); RED CELL DISTRIBUTION WIDTH 14.8 % (11.5-14.5); WHITE BLOOD COUNT 12.3 x10^3/uL (4.0-11.0)
[2016-09-22 04:24] LABS: CALCIUM 8.8 mg/dL (8.5-10.1); CREATININE 0.9 mg/dL (0.6-1.0); MAGNESIUM 2.1 mg/dL (1.8-2.4); POTASSIUM 4.1 mmol/L (3.5-5.1)
[2016-09-22 04:33] LABS: PLT ESTIMATE ADEQUATE (ADEQUATE)
[2016-09-22] MEDS: AZITHROMYCIN 500 MG in IV NORMAL SALINE 250ML 250 ML IV SCH (06:16)
[2016-09-22 07:00] VITALS: BP 159/63
[2016-09-22] MEDS: INSULIN ASPART 300 UNITS/3 ML INSULN.PEN SQ SCH ×4 (07:30→12:09)
[2016-09-22] MEDS: ALBUTEROL SULFATE 2.5 MG/3 ML NEBU. NEB SCH ×2 (07:40→11:16)
[2016-09-22] MEDS: BUDESONIDE 0.5 MG/2 ML NEBU. NEB SCH (07:42)
--- NOTE | 2016-09-22 07:49 | PDOC3 ---
KATIABELLO FLOWER PICKER 09/22/16 0749: IM DISCHARGE & PROGRESS NOTES Date of Admission Date of Admission Date of Admission: Sep 17, 2016 at 23:56 Date of Discharge Date of Discharge 09/22/16 Primary Diagnosis Primary Diagnosis Assessment 1. HCFA pneumonia grm neg/gram+ 2. AECOPD 3. dementia with psychosis 4. schizoaffective disorder 5. hyperlipidemia 6. 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 HTN 8..hyperlipidemia 9. secondary Parkinson's 10. anemia chronic B12 deficiency 11. CKD III 12. hyponatremia chronic 13. pulmonary HTN 14. allergic rhinitis 15. constipation Consults Consults Elsa Sandoval MD Labs Labs Laboratory Tests Test 09/19/16 07:56 09/19/16 11:26 09/19/16 16:23 09/20/16 04:24 Glucose (Fingerstick) 316 mg/dL (70-99) 353 mg/dL (70-99) 224 mg/dL (70-99) White Blood Count 14.3 x10^3/uL (4.0-11.0) Red Blood Count 3.39 x10^6/uL (3.50-5.40) Hemoglobin 9.1 g/dL (12.0-15.5) Hematocrit 27.3 % (36.0-47.0) Mean Corpuscular Volume 81 fL (79-100) Mean Corpuscular Hemoglobin 27 pg (25-35) Mean Corpuscular Hemoglobin Concent 33 g/dL (31-37) Red Cell Distribution Width 14.8 % (11.5-14.5) Platelet Count 347 x10^3/uL (140-400) Neutrophils (%) (Auto) 90 % (31-73) Lymphocytes (%) (Auto) 6 % (24-48) Monocytes (%) (Auto) 4 % (0-9) Eosinophils (%) (Auto) 0 % (0-3) Basophils (%) (Auto) 0 % (0-3) Neutrophils # (Auto) 12.9 x10^3uL (1.8-7.7) Lymphocytes # (Auto) 0.8 x10^3/uL (1.0-4.8) Monocytes # (Auto) 0.5 x10^3/uL (0.0-1.1) Eosinophils # (Auto) 0.0 x10^3/uL (0.0-0.7) Basophils # (Auto) 0.0 x10^3/uL (0.0-0.2) Sodium Level 131 mmol/L (136-145) Potassium Level 4.5 mmol/L (3.5-5.1) Chloride Level 97 mmol/L (98-107) Carbon Dioxide Level 26 mmol/L (21-32) Anion Gap 8 (6-14) Blood Urea Nitrogen 20 mg/dL (7-20) Creatinine 0.9 mg/dL (0.6-1.0) Estimated GFR (Cockcroft-Gault) 63.0 Glucose Level 262 mg/dL (70-99) Calcium Level 8.8 mg/dL (8.5-10.1) Magnesium Level 2.1 mg/dL (1.8-2.4) Test 09/20/16 07:16 09/20/16 10:35 09/20/16 16:33 09/20/16 20:22 Glucose (Fingerstick) 275 mg/dL (70-99) 327 mg/dL (70-99) 145 mg/dL (70-99) 227 mg/dL (70-99) Test 09/21/16 05:40 09/21/16 07:38 09/21/16 11:22 09/21/16 22:02 White Blood Count 11.6 x10^3/uL (4.0-11.0) Red Blood Count 3.57 x10^6/uL (3.50-5.40) Hemoglobin 9.4 g/dL (12.0-15.5) Hematocrit 29.3 % (36.0-47.0) Mean Corpuscular Volume 82 fL (79-100) Mean Corpuscular Hemoglobin 26 pg (25-35) Mean Corpuscular Hemoglobin Concent 32 g/dL (31-37) Red Cell Distribution Width 14.8 % (11.5-14.5) Platelet Count 332 x10^3/uL (140-400) Neutrophils (%) (Auto) 82 % (31-73) Lymphocytes (%) (Auto) 9 % (24-48) Monocytes (%) (Auto) 9 % (0-9) Eosinophils (%) (Auto) 0 % (0-3) Basophils (%) (Auto) 0 % (0-3) Neutrophils # (Auto) 9.5 x10^3uL (1.8-7.7) Lymphocytes # (Auto) 1.1 x10^3/uL (1.0-4.8) Monocytes # (Auto) 1.0 x10^3/uL (0.0-1.1) Eosinophils # (Auto) 0.0 x10^3/uL (0.0-0.7) Basophils # (Auto) 0.0 x10^3/uL (0.0-0.2) Sodium Level 138 mmol/L (136-145) Potassium Level 4.7 mmol/L (3.5-5.1) Chloride Level 102 mmol/L (98-107) Carbon Dioxide Level 30 mmol/L (21-32) Anion Gap 6 (6-14) Blood Urea Nitrogen 18 mg/dL (7-20) Creatinine 0.8 mg/dL (0.6-1.0) Estimated GFR (Cockcroft-Gault) 72.2 Glucose Level 127 mg/dL (70-99) Calcium Level 8.9 mg/dL (8.5-10.1) Magnesium Level 2.1 mg/dL (1.8-2.4) Glucose (Fingerstick) 119 mg/dL (70-99) 198 mg/dL (70-99) 223 mg/dL (70-99) Test 09/22/16 03:45 White Blood Count 12.3 x10^3/uL (4.0-11.0) Red Blood Count 3.50 x10^6/uL (3.50-5.40) Hemoglobin 9.3 g/dL (12.0-15.5) Hematocrit 28.7 % (36.0-47.0) Mean Corpuscular Volume 82 fL (79-100) Mean Corpuscular Hemoglobin 26 pg (25-35) Mean Corpuscular Hemoglobin Concent 32 g/dL (31-37) Red Cell Distribution Width 14.8 % (11.5-14.5) Platelet Count 368 x10^3/uL (140-400) Neutrophils (%) (Auto) 83 % (31-73) Lymphocytes (%) (Auto) 10 % (24-48) Monocytes (%) (Auto) 6 % (0-9) Eosinophils (%) (Auto) 0 % (0-3) Basophils (%) (Auto) 0 % (0-3) Neutrophils # (Auto) 10.2 x10^3uL (1.8-7.7) Lymphocytes # (Auto) 1.3 x10^3/uL (1.0-4.8) Monocytes # (Auto) 0.8 x10^3/uL (0.0-1.1) Eosinophils # (Auto) 0.0 x10^3/uL (0.0-0.7) Basophils # (Auto) 0.0 x10^3/uL (0.0-0.2) Segmented Neutrophils % 83 % (35-66) Lymphocytes % 11 % (24-48) Monocytes % 6 % (0-10) Platelet Estimate Adequate (ADEQUATE) Sodium Level 138 mmol/L (136-145) Potassium Level 4.1 mmol/L (3.5-5.1) Chloride Level 102 mmol/L (98-107) Carbon Dioxide Level 31 mmol/L (21-32) Anion Gap 5 (6-14) Blood Urea Nitrogen 14 mg/dL (7-20) Creatinine 0.9 mg/dL (0.6-1.0) Estimated GFR (Cockcroft-Gault) 63.0 Glucose Level 118 mg/dL (70-99) Calcium Level 8.8 mg/dL (8.5-10.1) Magnesium Level 2.1 mg/dL (1.8-2.4) Medications Medications Medications reviewed and reconciled for discharge. Brief hospital course Brief hospital course This 66 year old female who presented with fever, shortness of breath , productive cough and wheezing was admitted. The following is a summary of her treatment: pneumonia/AECOPD mucinex 1200mg bid albuterol nebulizer qid/budesonide bid O2 supplement zithromax/rocephin IV Decrease Solumedrol 60mg IV [id number] persist Consult . CT chest-ground glass RUL RLL c/w pneumonia-repeat CT chest 4-6 weeks fever resolved Admit WBC 17.8 09/22 12.3 09/21 wheezing persist -minimal improvement 09/22 wheezing improved, now post LL bilateral expiratory DM II- not controlled FSBS SSI Increase Levemir to 24 units s/c bid and Humalog to 12 units s/c tid AC. Decrease IV Solumedrol BS 118-223 CKD III Abmit BUN 17 06/0 14 Cr 1.2 0.9 Na 131 138 2.1 Hypomagnesemia better. Mg 1.5 - 2.1 Increase Mag ox to bid-continue Na-monitor, is chronic r/t psych meds Schizophrenia/dementia/psychosis continue home medications DVT/GI prophylaxis SCD/MATEUS PPI constipation sennokot BM last evening For more details regarding the past history, family history, social history, surgical history and other details, please refer to History and Physical. She will be discharged to [facility] with SNU orders. Please see discharge orders. Subjective wheezing improving, no shortness of breath Objective alert, no distress Vitals Vital Signs Date Time Temp Pulse Resp B/P (MAP) Pulse Ox O2 Delivery O2 Flow Rate FiO2 09/22/16 07:41 92 Room Air 09/21/16 23:00 98.1 78 18 149/72 (97) 2.0 98.1 Physical Exam General appearance - alert, well appearing, and in no distress Mental Status - alert, oriented to person, place, and time, affect appropriate to mood Head - normal Chest - wheezing improved, now in lower lobes posterior expiratory Heart - S1 and S2 normal Abdomen - soft, nontender, nondistended, no masses or organomegaly Neurological - no acute focal neurological deficit noted. Musculoskeletal - no muscular tenderness noted Extremities - no pedal edema Skin - warm and dry Medications Medications reviewed. Allergy Allergies Coded Allergies Type Severity Reaction Last Updated Verified codeine Allergy Severe hives, shortness of breath 09/19/16 Yes Follow up Admit to facility MD. [facility] Comments Discharge Management - 35 minutes. For other details please refer to discharge instructions LUIS FERNANDO YATES MD 09/22/16 0858: IM DISCHARGE & PROGRESS NOTES Brief hospital course Brief hospital course Doing better.Wheezing better. The patient was seen and examined by me. Chart reviewed and plan of care formulated. Discussed with, reviewed and agree with CHEESEMAKER's notes, plan of care and orders with modifications as necessary. For more details regarding further plans, please refer to the orders. Discharge Management - 35 minutes. BELLO MONTALVO APRN Sep 22, 2016 07:49 LUIS FERNANDO YATES MD Sep 22, 2016 08:58
[2016-09-22] MEDS ORDERED: SENN-22 PO (07:51)
[2016-09-22] MEDS: FLUTICASONE 50MCG/NASAL SPRAY 16GM BOTTLE. NS SCH (08:01)
[2016-09-22] MEDS: MULTIVITAMIN with MINERAL TABLET. PO SCH (08:01)
[2016-09-22] MEDS: SENNOSIDES/DOCUSATE 8.6/50MG TABLET. PO SCH (08:02)
[2016-09-22] MEDS: buPROPion XL 150 MG TAB.ER.24H. PO SCH (08:02)
[2016-09-22] MEDS: MAGNESIUM OXIDE 400 MG TABLET PO SCH (08:02)
[2016-09-22] MEDS: PANTOPRAZOLE 40 MG TABLET.DR. PO SCH (08:02)
[2016-09-22] MEDS: ASPIRIN ENTERIC COATED 81 MG TABLET.DR. PO SCH (08:02)
[2016-09-22] MEDS: busPIRone 5 MG TABLET. PO SCH (08:02)
[2016-09-22] MEDS: CALCIUM CARB/VIT D3 500/200 TABLET. PO SCH (08:02)
[2016-09-22] MEDS: LORazepam 1 MG TABLET PO SCH (08:02)
[2016-09-22] MEDS: methylPREDNISolone SOD SUCC PF 125 MG/2 ML VIAL. IV SCH (08:03)
[2016-09-22] MEDS: LOSARTAN POTASSIUM 50 MG TABLET. PO SCH (08:05)
[2016-09-22] MEDS: INSULIN DETEMIR 300 UNITS/3 ML INSULN.PEN. SQ SCH (08:23)
--- NOTE | 2016-09-22 09:20 | PDOC ---
PULMONARY PROGRESS NOTES Subjective feels better Vitals Vital Signs Date Time Temp Pulse Resp B/P (MAP) Pulse Ox O2 Delivery O2 Flow Rate FiO2 09/22/16 08:05 84 159/63 09/22/16 07:41 92 Room Air 09/22/16 07:00 97.9 18 97.9 09/21/16 23:00 2.0 ROS: No Nausea, No Chest Pain, No Abdominal Pain, No Increase Cough General: Alert, No acute distress Lungs: Clear Cardiovascular: S1 Abdomen: Soft Neuro Exam: Alert Extremities: No Edema Skin: Warm Labs Laboratory Tests Test 09/20/16 10:35 09/20/16 16:33 09/20/16 20:22 09/21/16 05:40 Glucose (Fingerstick) 327 mg/dL (70-99) 145 mg/dL (70-99) 227 mg/dL (70-99) White Blood Count 11.6 x10^3/uL (4.0-11.0) Red Blood Count 3.57 x10^6/uL (3.50-5.40) Hemoglobin 9.4 g/dL (12.0-15.5) Hematocrit 29.3 % (36.0-47.0) Mean Corpuscular Volume 82 fL (79-100) Mean Corpuscular Hemoglobin 26 pg (25-35) Mean Corpuscular Hemoglobin Concent 32 g/dL (31-37) Red Cell Distribution Width 14.8 % (11.5-14.5) Platelet Count 332 x10^3/uL (140-400) Neutrophils (%) (Auto) 82 % (31-73) Lymphocytes (%) (Auto) 9 % (24-48) Monocytes (%) (Auto) 9 % (0-9) Eosinophils (%) (Auto) 0 % (0-3) Basophils (%) (Auto) 0 % (0-3) Neutrophils # (Auto) 9.5 x10^3uL (1.8-7.7) Lymphocytes # (Auto) 1.1 x10^3/uL (1.0-4.8) Monocytes # (Auto) 1.0 x10^3/uL (0.0-1.1) Eosinophils # (Auto) 0.0 x10^3/uL (0.0-0.7) Basophils # (Auto) 0.0 x10^3/uL (0.0-0.2) Sodium Level 138 mmol/L (136-145) Potassium Level 4.7 mmol/L (3.5-5.1) Chloride Level 102 mmol/L (98-107) Carbon Dioxide Level 30 mmol/L (21-32) Anion Gap 6 (6-14) Blood Urea Nitrogen 18 mg/dL (7-20) Creatinine 0.8 mg/dL (0.6-1.0) Estimated GFR (Cockcroft-Gault) 72.2 Glucose Level 127 mg/dL (70-99) Calcium Level 8.9 mg/dL (8.5-10.1) Magnesium Level 2.1 mg/dL (1.8-2.4) Test 09/21/16 07:38 09/21/16 11:22 09/21/16 22:02 09/22/16 03:45 Glucose (Fingerstick) 119 mg/dL (70-99) 198 mg/dL (70-99) 223 mg/dL (70-99) White Blood Count 12.3 x10^3/uL (4.0-11.0) Red Blood Count 3.50 x10^6/uL (3.50-5.40) Hemoglobin 9.3 g/dL (12.0-15.5) Hematocrit 28.7 % (36.0-47.0) Mean Corpuscular Volume 82 fL (79-100) Mean Corpuscular Hemoglobin 26 pg (25-35) Mean Corpuscular Hemoglobin Concent 32 g/dL (31-37) Red Cell Distribution Width 14.8 % (11.5-14.5) Platelet Count 368 x10^3/uL (140-400) Neutrophils (%) (Auto) 83 % (31-73) Lymphocytes (%) (Auto) 10 % (24-48) Monocytes (%) (Auto) 6 % (0-9) Eosinophils (%) (Auto) 0 % (0-3) Basophils (%) (Auto) 0 % (0-3) Neutrophils # (Auto) 10.2 x10^3uL (1.8-7.7) Lymphocytes # (Auto) 1.3 x10^3/uL (1.0-4.8) Monocytes # (Auto) 0.8 x10^3/uL (0.0-1.1) Eosinophils # (Auto) 0.0 x10^3/uL (0.0-0.7) Basophils # (Auto) 0.0 x10^3/uL (0.0-0.2) Segmented Neutrophils % 83 % (35-66) Lymphocytes % 11 % (24-48) Monocytes % 6 % (0-10) Platelet Estimate Adequate (ADEQUATE) Sodium Level 138 mmol/L (136-145) Potassium Level 4.1 mmol/L (3.5-5.1) Chloride Level 102 mmol/L (98-107) Carbon Dioxide Level 31 mmol/L (21-32) Anion Gap 5 (6-14) Blood Urea Nitrogen 14 mg/dL (7-20) Creatinine 0.9 mg/dL (0.6-1.0) Estimated GFR (Cockcroft-Gault) 63.0 Glucose Level 118 mg/dL (70-99) Calcium Level 8.8 mg/dL (8.5-10.1) Magnesium Level 2.1 mg/dL (1.8-2.4) Test 09/22/16 07:33 Glucose (Fingerstick) 115 mg/dL (70-99) Laboratory Tests Test 09/21/16 11:22 09/21/16 22:02 09/22/16 03:45 09/22/16 07:33 Glucose (Fingerstick) 198 mg/dL (70-99) 223 mg/dL (70-99) 115 mg/dL (70-99) White Blood Count 12.3 x10^3/uL (4.0-11.0) Red Blood Count 3.50 x10^6/uL (3.50-5.40) Hemoglobin 9.3 g/dL (12.0-15.5) Hematocrit 28.7 % (36.0-47.0) Mean Corpuscular Volume 82 fL (79-100) Mean Corpuscular Hemoglobin 26 pg (25-35) Mean Corpuscular Hemoglobin Concent 32 g/dL (31-37) Red Cell Distribution Width 14.8 % (11.5-14.5) Platelet Count 368 x10^3/uL (140-400) Neutrophils (%) (Auto) 83 % (31-73) Lymphocytes (%) (Auto) 10 % (24-48) Monocytes (%) (Auto) 6 % (0-9) Eosinophils (%) (Auto) 0 % (0-3) Basophils (%) (Auto) 0 % (0-3) Neutrophils # (Auto) 10.2 x10^3uL (1.8-7.7) Lymphocytes # (Auto) 1.3 x10^3/uL (1.0-4.8) Monocytes # (Auto) 0.8 x10^3/uL (0.0-1.1) Eosinophils # (Auto) 0.0 x10^3/uL (0.0-0.7) Basophils # (Auto) 0.0 x10^3/uL (0.0-0.2) Segmented Neutrophils % 83 % (35-66) Lymphocytes % 11 % (24-48) Monocytes % 6 % (0-10) Platelet Estimate Adequate (ADEQUATE) Sodium Level 138 mmol/L (136-145) Potassium Level 4.1 mmol/L (3.5-5.1) Chloride Level 102 mmol/L (98-107) Carbon Dioxide Level 31 mmol/L (21-32) Anion Gap 5 (6-14) Blood Urea Nitrogen 14 mg/dL (7-20) Creatinine 0.9 mg/dL (0.6-1.0) Estimated GFR (Cockcroft-Gault) 63.0 Glucose Level 118 mg/dL (70-99) Calcium Level 8.8 mg/dL (8.5-10.1) Magnesium Level 2.1 mg/dL (1.8-2.4) Medications Active Scripts Medications Dose Route/Sig Max Daily Dose Days Date Category Dose Instructions Prednisone 10 Mg Tablet 10 Mg PO DIRECTED 09/20/16 Rx Take by mouth daily: 4 tab x 4d, 3 tab x 4d, 2 tab x 4d, 1 tab x 4d Cefpodoxime Proxetil 200 Mg Tablet 1 Tab PO BID 5 09/20/16 Rx Novolog Flexpen (Insulin Aspart) 100 Unit/1 Ml Insuln.pen 0-12 Unit SQ TIDAC 09/20/16 Rx inject subq tid ac: 101-150=2unit, 151-200=3 unit, 201-250=4 unit, 251-300=6 unit, 301-350=8 unit, 351-400=10 unit >401 call MD Mag-Oxide (Magnesium Oxide) 400 Mg Tablet 400 Mg PO BID 09/20/16 Rx Take one tablet two times daily by mouth Levemir Flextouch (Insulin Detemir) 100 Unit/1 Ml Insuln.pen 24 Units SQ BID 09/20/16 Rx Inject subq bid Novolog Flexpen (Insulin Aspart) 100 Unit/1 Ml Insuln.pen 12 Units SQ TIDAC 09/20/16 Rx Inject 12 units tid ac Mucinex (Guaifenesin) 600 Mg Tablet.er 1,200 Mg PO BID 09/20/16 Rx TAke by mouth bid for 5 days Albuterol Sulfate Neb Soln (Albuterol Sulfate) 2.5 Mg/3 Ml Vial.neb 2.5 Mg NEB QID 09/20/16 Rx Nebulizer treatment QID and prn q2hr for shortness of breath Tylenol Extra Strength (Acetaminophen) 500 Mg Tablet 1,000 Mg PO Q8HRS PRN 09/18/16 Reported Tizanidine Hcl 4 Mg Tablet 1 Tab PO QHS 09/18/16 Reported Montelukast Sodium Tablet (Montelukast Sodium) 10 Mg Tablet 10 Mg PO HS 09/18/16 Reported Simethicone 100 Ml Liquid 30 Ml MC Q4HRS PRN 09/18/16 Reported Novolog (Insulin Aspart) 100 Unit/1 Ml Cartridge 10 Unit SQ TIDWMEALS 09/18/16 Reported Multivitamins (Multivitamin) 1 Each Tablet 1 Tab PO DAILY 09/18/16 Reported Losartan Potassium 50 Mg Tablet 50 Mg PO DAILY 09/18/16 Reported Haloperidol 2 Mg Tablet 1 Tab PO QHS 09/18/16 Reported Glucagon Emergency Kit (Glucagon,Human Recombinant) 1 Mg Kit 1 Mg IM PRN 09/18/16 Reported Flonase Allergy Relief (Fluticasone Propionate) 9.9 Ml [place].susp 2 Sprays NS DAILY 09/18/16 Reported Fluoxetine Hcl 20 Mg Tablet 3 Tab PO QHS 09/18/16 Reported Breo Ellipta 100-25 Mcg Inh (Fluticasone/Vilanterol) 1 Each Aer.pow.ba 1 Puff IH DAILY 09/18/16 Reported Biofreeze (Menthol) 118 Ml Gel..ml. 118 Ml TP PRN PRN 09/18/16 Reported lower back and right shoulder Benztropine Mesylate 0.5 Mg Tablet 0.5 Tab PO QHS 09/18/16 Reported Ativan (Lorazepam) 1 Mg Tablet 1 Mg PO BID 09/18/16 Reported Artificial Tears Eye Drops (Dextran 70/Hypromellose) 15 Ml Drops 2 Drop EACHEYE QID 09/18/16 Reported Wellbutrin Xl (Bupropion Hcl) 150 Mg Tab.er.24h 1 Tab PO DAILY 09/27/14 Reported Vaseline White Petroleum (Petrolatum,White) 5 Gm Oint.pack 1 Gm TP HS 09/27/14 Reported Spiriva (Tiotropium [place]) 18 Mcg Cap.w.dev 1 Cap IH DAILY 09/27/14 Reported Simvastatin 20 Mg Tablet 20 Mg PO HS 09/27/14 Reported Ranitidine Hcl 300 Mg Tablet 1 Tab PO QHS 09/27/14 Reported Protonix (Pantoprazole Sodium) 40 Mg Tablet.dr 1 Tab PO DAILY 09/27/14 Reported Calcium 500 + Vit D 200 Tablet (Calcium Carbonate/Vitamin D3) 1 Each Tablet 1 Tab PO DAILY 09/27/14 Reported Alum-Mag Hydroxide-Simeth Liq (Mag Hydrox/Al Hydrox/Simeth) 360 Ml Oral.susp 30 Ml PO PRN Q4HRS PRN 09/27/14 Reported Isopto Tears (Hypromellose) 15 Ml Drops 15 Ml OP PRN Q6HRS PRN 09/27/14 Reported Anti-Diarrhea (Loperamide Hcl) 2 Mg Tablet 2 Mg PO PRN Q8HRS PRN 09/27/14 Reported Glucose Gel (Dextrose) 38 Gm Gel..gram. 38 Gm PO PRN PRN 09/27/14 Reported Donepezil Hcl 5 Mg Tablet 1 Tab PO HS 09/27/14 Reported Cyanocobalamin Injection (Cyanocobalamin (Vitamin B-12)) 1,000 Mcg/1 Ml Vial 1 Ml IM QMONTH 09/27/14 Reported Buspirone Hcl 5 Mg Tablet 1 Tab PO TID 09/27/14 Reported Aspirin Ec (Aspirin) 81 Mg Tablet.dr 1 Tab PO DAILY 09/27/14 Reported Proair Hfa Inhaler (Albuterol Sulfate) 8.5 Gm Hfa.aer.ad 2 Puff IH PRN Q6HRS PRN 09/27/14 Reported Impression . 1. acute hypoxic respiratory failure secondary to acute exacerbation of chronic obstructive pulmonary disease and pneumonia. 2. Abnormal ct chest with diffuse GG right lung infiltrates c/w pneumonia 3. A 35 years of tobacco use. Recently quit 2 weeks ago. 4. Leukocytosis secondary to pneumonia. Plan . d/c today follow up in office did not qualify for 02 follow up in office repeat CT of chest in 6 weeks 6 min walk GARRETT XIAO MD Sep 22, 2016 09:20
[2016-09-22 10:30] VITALS: BP 183/85
[2016-10-18] MEDS ORDERED: CYANOCOBALAMIN (VITAMIN B-12) 1,000 MCG/ML VIAL IM SCH (09:00)
== END 2016-09-22 13:55 | DRG 189 ==
LOC: ER 22:46 → 5 NORTH 23:56
PROVIDERS: ADMIT Internal Medicine; ATTEND Internal Medicine
DX: J96.01 Acute respiratory failure with hypoxia (principal); J15.6 Pneumonia due to other Gram-negative bacteria; J44.1 Chronic obstructive pulmonary disease with (acute) exacerbation; E87.1 Hypo-osmolality and hyponatremia; G21.9 Secondary parkinsonism, unspecified; J44.0 Chronic obstructive pulmonary disease with (acute) lower respiratory infection; E78.5 Hyperlipidemia, unspecified; F03.90 Unspecified dementia, unspecified severity, without behavioral disturbance, psychotic disturbance, mood disturbance, and anxiety; F25.9 Schizoaffective disorder, unspecified; E83.42 Hypomagnesemia; I27.2 Other secondary pulmonary hypertension; K21.9 Gastro-esophageal reflux disease without esophagitis; K59.00 Constipation, unspecified; N18.3 Chronic kidney disease, stage 3 (moderate); I12.9 Hypertensive chronic kidney disease with stage 1 through stage 4 chronic kidney disease, or unspecified chronic kidney disease; E66.9 Obesity, unspecified; E53.8 Deficiency of other specified B group vitamins; E11.22 Type 2 diabetes mellitus with diabetic chronic kidney disease; D64.9 Anemia, unspecified; F32.9 Major depressive disorder, single episode, unspecified; F41.9 Anxiety disorder, unspecified; Z88.5 Allergy status to narcotic agent; Z90.710 Acquired absence of both cervix and uterus; Z87.891 Personal history of nicotine dependence; Z79.4 Long term (current) use of insulin; Z79.899 Other long term (current) drug therapy; Z79.2 Long term (current) use of antibiotics; Z68.33 Body mass index [BMI] 33.0-33.9, adult
CPT/HCPCS: 36415; 36600; 71010; 71250; 80048; 80076; 81001; 82550; 82553; 82805; 82962; 83605; 83690; 83735; 83880; 84443; 84484; 85007; 85027; 87040; 87641; 87804; 93005; 94250; 94620; 94640; 94760; 96365; 96367; 96375; J0456; J0696; J1815; J2930; J7030; J7050; J7620; Q0144; 97116; 99291-25

== ENCOUNTER 2016-10-11 16:06 | Emergency (ER) | payer MEDICARE, OTHER ==
[~2016-10-11] VITALS: Ht 167.6 cm; Wt 86.6 kg
[~2016-10-11 16:06] MED LIST changes: +ACET500T33 PO; +ALBU2.5V5 NEB; +BENZ0.5T PO; +BREO ELLIPTA 11 EACH IH; +CEFP200T PO; +FLUO20TA11 PO; +FLUT9.9S NS; +GUAI237L83 PO; +GUAI600T47 PO; +HALO2TAB PO; +INSU100C4 SQ; +LORA-434 PO; +MAGN400C PO; +MAGN400T22 PO; +MENT118G TP; +MONT10TA9 PO; +MULT1TAB52 PO; +PRED-220 PO; +SENN-22 PO; +SIME100L MC; +TIZA4TAB PO
[2016-10-11 17:01] VITALS: BP 160/70
--- NOTE | 2016-10-11 17:55 | RAD ---
CT head without intravenous contrast History: Fall and trauma to the head. Comparison: CT head September 27, 2014. Technique: Axial images are obtained of the head from the skull base through the vertex without IV contrast. Exposure: One or more of the following individualized dose reduction techniques were utilized for this examination: 1. Automated exposure control 2. Adjustment of the mA and/or kV according to patient size 3. Use of iterative reconstruction technique Findings: The ventricles are appropriate in size, shape, and location for the patient's age. No obvious intracranial mass, mass-effect, midline shift, hemorrhage or obvious acute infarction is identified. Basilar cisterns are patent. Bone windows demonstrate no acute calvarial abnormality. The visualized paranasal sinuses appear clear. Impression: No acute intracranial process. Please note that CT can be relatively insensitive to acute ischemic infarction for up to 24 hours after symptom onset. Electronically signed by: James De Jesus MD (10/11/2016 5:52 PM)
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
== END 2016-10-11 19:28 | disposition home or self-care (01) ==
LOC: ER 16:06
DX: S00.83XA Contusion of other part of head, initial encounter (principal); S09.90XA Unspecified injury of head, initial encounter; M25.551 Pain in right hip; F41.9 Anxiety disorder, unspecified; J44.9 Chronic obstructive pulmonary disease, unspecified; F03.90 Unspecified dementia, unspecified severity, without behavioral disturbance, psychotic disturbance, mood disturbance, and anxiety; F32.9 Major depressive disorder, single episode, unspecified; K21.9 Gastro-esophageal reflux disease without esophagitis; E78.00 Pure hypercholesterolemia, unspecified; I10 Essential (primary) hypertension; F20.9 Schizophrenia, unspecified; G20 Parkinson's disease; Z88.5 Allergy status to narcotic agent; W18.39XA Other fall on same level, initial encounter; Y93.89 Activity, other specified; Y92.89 Other specified places as the place of occurrence of the external cause; Y99.8 Other external cause status
CPT/HCPCS: 70450; 99284-25

== ENCOUNTER 2016-11-26 22:41 | Emergency (ER) | payer MEDICARE, OTHER ==
[~2016-11-26] VITALS: Ht 157.5 cm; Wt 86.6 kg
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
[2016-11-26 23:17] VITALS: BP 138/68
== END 2016-11-26 23:18 | disposition home or self-care (01) ==
LOC: ER 22:41
DX: T16.1XXA Foreign body in right ear, initial encounter (principal); F41.9 Anxiety disorder, unspecified; J44.9 Chronic obstructive pulmonary disease, unspecified; F32.9 Major depressive disorder, single episode, unspecified; E11.9 Type 2 diabetes mellitus without complications; K21.9 Gastro-esophageal reflux disease without esophagitis; E78.00 Pure hypercholesterolemia, unspecified; I10 Essential (primary) hypertension; F20.9 Schizophrenia, unspecified; G20 Parkinson's disease; F02.80 Dementia in other diseases classified elsewhere, unspecified severity, without behavioral disturbance, psychotic disturbance, mood disturbance, and anxiety; Z88.5 Allergy status to narcotic agent; X58.XXXA Exposure to other specified factors, initial encounter; Y93.89 Activity, other specified; Y92.89 Other specified places as the place of occurrence of the external cause; Y99.8 Other external cause status
CPT/HCPCS: 69200; 99284-25

== ENCOUNTER → 2017-07-08 | Outpatient (CLI) | payer MEDICARE, OTHER | END | disposition home or self-care (01) | LOC: MRI 14:56 | DX: M51.37 Other intervertebral disc degeneration, lumbosacral region (principal); M51.26 Other intervertebral disc displacement, lumbar region; M48.07 Spinal stenosis, lumbosacral region; M48.56XA Collapsed vertebra, not elsewhere classified, lumbar region, initial encounter for fracture; G89.29 Other chronic pain | CPT/HCPCS: 72146; 72148 ==

== ENCOUNTER 2018-03-08 20:43 | Emergency (ER) | payer MEDICARE, OTHER ==
[~2018-03-08] VITALS: Ht 167.6 cm; Wt 88.0 kg
[~2018-03-08 20:43] MED LIST changes: -BENZ0.5T PO; +BENZ0.5T32 PO; -LOSA100T6 PO; +LOSA100T7 PO; -LOSA50TA6 PO; +LOSA50TA7 PO
[2018-03-08 21:44] LABS: BASO # 0.1 x10^3/uL (0.0-0.2); BASO % 1 % (0-3); EOS # 0.1 x10^3/uL (0.0-0.7); EOS % 1 % (0-3); HEMATOCRIT 37.4 % (36.0-47.0); HEMOGLOBIN 12.5 g/dL (12.0-15.5); LYMPH # 3.1 x10^3/uL (1.0-4.8); LYMPH % 40 % (24-48); MEAN CORPUSCULAR HEMOGLOBIN 28 pg (25-35); MEAN CORPUSCULAR HGB CONC 33 g/dL (31-37); MEAN CORPUSCULAR VOLUME 84 fL (79-100); MONO # 0.6 x10^3/uL (0.0-1.1); MONO % 8 % (0-9); NEUT # 3.8 x10^3uL (1.8-7.7); NEUT % 49 % (31-73); PLATELET COUNT 324 x10^3/uL (140-400); RED BLOOD COUNT 4.43 x10^6/uL (3.50-5.40); WHITE BLOOD COUNT 7.8 x10^3/uL (4.0-11.0)
[2018-03-08 21:52] LABS: CALCIUM 8.9 mg/dL (8.5-10.1); CREATININE 0.9 mg/dL (0.6-1.0); GFR 62.6; POTASSIUM 4.1 mmol/L (3.5-5.1)
[2018-03-08 21:58] LABS: ALBUMIN 3.4 g/dL (3.4-5.0); ALBUMIN/GLOBULIN RATIO 1.1 (1.0-1.7); MAGNESIUM 1.6 mg/dL (1.8-2.4); TOTAL BILIRUBIN 0.1 mg/dL (0.2-1.0); TOTAL PROTEIN 6.5 g/dL (6.4-8.2)
[2018-03-08 22:28] VITALS: BP 157/74
[2018-03-08 22:39] LABS: BILIRUBIN,URINE NEGATIVE (NEG); CLARITY,URINE CLEAR; COLOR,URINE YELLOW; NITRITE,URINE NEGATIVE (NEG); PH,URINE 5.5; PROTEIN,URINE NEGATIVE (NEG-TRACE); UROBILINOGEN,URINE 0.2 mg/dL (0.2 mg/dL)
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
[2018-03-08 22:46] LABS: BACTERIA,URINE 0 /HPF (0-FEW); SQUAMOUS EPITHELIAL CELL,UR MOD /LPF; WBC,URINE 20-40 /HPF (0-4)
[2018-03-08] MEDS ORDERED: CEPH-264 PO (23:16)
--- NOTE | 2018-03-09 07:30 | EKG ---
[facility] [address] [place] [address] Test Date: 2018-03-08 Test Time: 21:08:42 Pat Name: DUANE BRAVO Department: Room: Gender: F Pacu Rn: : 1950 Requested By: KEVIN HERNANDEZ Order Number: [id number] Reading MD: Ilir Mi Measurements Intervals [place] Rate: 75 P: 46 MN: 196 QRS: 43 QRSD: 92 T: 98 QT: 452 QTc: 508 Interpretive Statements SINUS RHYTHM QRS(T) CONTOUR ABNORMALITY CONSIDER ANTEROSEPTAL MYOCARDIAL DAMAGE ST & T ABNORMALITY, CONSIDER HIGH LATERAL ISCHEMIA OR LEFT VENTRICULAR STRAIN ABNORMAL ECG Electronically Signed On 03-13-2018 10:49:34 [employer] by Ilir Mi
== END 2018-03-09 00:09 ==
LOC: ER 20:43
DX: E11.649 Type 2 diabetes mellitus with hypoglycemia without coma (principal); N39.0 Urinary tract infection, site not specified; J44.9 Chronic obstructive pulmonary disease, unspecified; K21.9 Gastro-esophageal reflux disease without esophagitis; E78.00 Pure hypercholesterolemia, unspecified; I10 Essential (primary) hypertension; F20.9 Schizophrenia, unspecified; F02.80 Dementia in other diseases classified elsewhere, unspecified severity, without behavioral disturbance, psychotic disturbance, mood disturbance, and anxiety; G20 Parkinson's disease; Z88.5 Allergy status to narcotic agent
CPT/HCPCS: 36415; 80053; 81001; 82962; 83735; 85025; 87086; 93005; 96365; 99284; J0690

== ENCOUNTER 2018-04-15 19:42 | Emergency (ER) | payer MEDICARE, OTHER ==
[~2018-04-15] VITALS: Ht 167.6 cm; Wt 87.1 kg
[~2018-04-15 19:42] MED LIST changes: +ALBU2.5V8 IH; +CEPH-264 PO; +LOSA-73 PO; +LOSA100T14 PO; -LOSA100T7 PO; -LOSA50TA7 PO; -PROAIR HFA8.5 GM IH
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
[2018-04-15] MEDS ORDERED: ACETAMINOPHEN 500 MG TABLET PO ONE (21:30)
[2018-04-15 21:58] VITALS: BP 165/118
--- NOTE | 2018-04-15 22:20 | RAD ---
CT of the head without contrast, 04/15/2018: HISTORY: Fall, 4 head injury The ventricles are at the upper limits of normal in size. There is no shift of midline structures. There is no evidence of acute intracranial hemorrhage or mass effect. IMPRESSION: No acute intracranial abnormality is detected. CT of the cervical spine without contrast, 04/15/2018: Noncontrast scans were obtained with multiplanar reconstructions produced. There is severe disc space narrowing with endplate sclerosis and marginal spurring at C6-7. There are scattered spurs at other levels in the cervical spine. There are mild to moderate degenerative changes involving multiple facet joints bilaterally. No fracture or dislocation is identified. No high-grade central spinal stenosis is evident. IMPRESSION: 1. Moderate multilevel degenerative change. 2. No acute bony abnormality is detected. Electronically signed by: Harry West MD (04/15/2018 10:16 PM) [facility]
== END 2018-04-15 23:25 | disposition home or self-care (01) ==
LOC: ER 19:42
DX: S01.81XA Laceration without foreign body of other part of head, initial encounter (principal); F32.9 Major depressive disorder, single episode, unspecified; J44.9 Chronic obstructive pulmonary disease, unspecified; K21.9 Gastro-esophageal reflux disease without esophagitis; E78.00 Pure hypercholesterolemia, unspecified; I10 Essential (primary) hypertension; F20.9 Schizophrenia, unspecified; E11.9 Type 2 diabetes mellitus without complications; G20 Parkinson's disease; F02.80 Dementia in other diseases classified elsewhere, unspecified severity, without behavioral disturbance, psychotic disturbance, mood disturbance, and anxiety; Z88.5 Allergy status to narcotic agent; W01.0XXA Fall on same level from slipping, tripping and stumbling without subsequent striking against object, initial encounter; Y93.89 Activity, other specified; Y92.89 Other specified places as the place of occurrence of the external cause; Y99.8 Other external cause status
CPT/HCPCS: 70450; 72125; 99283; 99284

== ENCOUNTER 2019-11-09 14:49 | Emergency (ER) | payer OTHER, MEDICAID ==
[~2019-11-09] VITALS: Ht 170.2 cm; Wt 81.8 kg
[~2019-11-09 14:49] MED LIST changes: -ASPI-612 PO; +ASPI-886 PO; +DOXY100T PO; +FLUO20CA20 PO; -FLUO20CA8 PO; +LEVO500T59 PO; +METF-658 PO; -METF500T9 PO; +MONT10TA49 PO; -MONT10TA9 PO; +MULT-445 PO; -MULT1TAB52 PO; -PANT40TA3 PO; +PANT40TA77 PO; +SIMV20TA18 PO; -SIMV20TA3 PO; -TIZA4TAB PO; +TIZA4TAB2 PO
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
[2019-11-09] MEDS ORDERED: IV NORMAL SALINE 1000ML BAG 1,000 ML IV ONE (15:30)
[2019-11-09 15:36] LABS: BASO # 0.1 x10^3/uL (0.0-0.2); BASO % 1 % (0-3); EOS % 0 % (0-3); HEMATOCRIT 38.5 % (36.0-47.0); HEMOGLOBIN 13.3 g/dL (12.0-15.5); LYMPH # 1.4 x10^3/uL (1.0-4.8); LYMPH % 30 % (24-48); MEAN CORPUSCULAR HEMOGLOBIN 32 pg (25-35); MEAN CORPUSCULAR HGB CONC 35 g/dL (31-37); MEAN CORPUSCULAR VOLUME 92 fL (79-100); MONO # 0.7 x10^3/uL (0.0-1.1); MONO % 16 % (0-9); NEUT # 2.5 x10^3/uL (1.8-7.7); NEUT % 53 % (31-73); PLATELET COUNT 139 x10^3/uL (140-400); RED BLOOD COUNT 4.17 x10^6/uL (3.50-5.40); RED CELL DISTRIBUTION WIDTH 12.5 % (11.5-14.5); WHITE BLOOD COUNT 4.7 x10^3/uL (4.0-11.0)
--- NOTE | 2019-11-09 15:38 | RAD ---
EXAM: CHEST ONE VIEW. HISTORY: Altered mental status. COMPARISON: 05/31/2019. FINDINGS: A frontal view of the chest is obtained. Linear opacities in the bases are consistent with mild atelectasis. There are no confluent infiltrates. There is no pneumothorax or pleural effusion. The heart is not enlarged. Calcified lymph nodes likely reflect old granulomatous disease. IMPRESSION: 1. Basilar atelectasis. No confluent infiltrates. Electronically signed by: Kaylee Cruz MD (11/09/2019 3:35 PM) [id number]
[2019-11-09 15:53] LABS: CALCIUM 8.3 mg/dL (8.5-10.1); CREATININE 1.1 mg/dL (0.6-1.0); GFR 49.5; POTASSIUM 3.6 mmol/L (3.5-5.1)
[2019-11-09 15:58] LABS: MAGNESIUM 1.5 mg/dL (1.8-2.4); TOTAL BILIRUBIN 0.2 mg/dL (0.2-1.0)
--- NOTE | 2019-11-09 16:26 | RAD ---
Examination: CT HEAD WO CONTRAST History: Reason: Altered mental status / Spl. Instructions: / History: Comparison/Correlation: 05/31/2019 CT-head and cervical spine without contrast Findings: Axial images of the head rotated without contrast. Atrophy and chronic lung changes and white matter noted. No intracranial hemorrhage, midline shift, or mass effect. Visualized paranasal sinuses are unremarkable. 0.3 cm diameter old lacunar infarct involving the genu of the left internal capsule. Postoperative findings of the right mastoid air cells noted. Impression: No suspicious process. Left internal capsule genu lacunar infarct is evident compared to prior exam but is otherwise chronic in appearance. Electronically signed by: Washington Mukherjee MD (11/09/2019 4:23 PM) [facility]
[2019-11-09 17:57] LABS: % BANDS 4 % (0-9); % BASOS 2 % (0-3); % LYMPHS 25 % (24-48); % MONOS 14 % (0-10); % SEGS 55 % (35-66)
[2019-11-09 18:05] LABS: BILIRUBIN,URINE NEGATIVE (NEG); CLARITY,URINE CLEAR; COLOR,URINE YELLOW; NITRITE,URINE NEGATIVE (NEG); PH,URINE 5.5 (<5.0-8.0); PROTEIN,URINE NEGATIVE (NEG-TRACE); UROBILINOGEN,URINE 0.2 mg/dL (0.2 mg/dL)
[2019-11-09 18:12] LABS: BARBITURATES NEG (NEG); BENZODIAZEPINES NEG (NEG); CANNABINOIDS NEG (NEG); COCAINE NEG (NEG); METHADONE NEG (NEG); OPIATES NEG (NEG); PHENCYCLIDINE NEG (NEG)
[2019-11-09 18:13] LABS: AMPHETAMINE/METHAMPHETAMINE NEG (NEG)
[2019-11-09 18:24] LABS: PLT ESTIMATE ADEQUATE (ADEQUATE)
[2019-11-09 18:30] LABS: BACTERIA,URINE MANY /HPF (0-FEW); RBC,URINE 0 /HPF (0-2); SQUAMOUS EPITHELIAL CELL,UR FEW /LPF; WBC,URINE 20-40 /HPF (0-4)
[2019-11-09 20:14] VITALS: BP 174/67
--- NOTE | 2019-11-12 09:50 | EKG ---
[facility] [address] [place] [address] Test Date: 2019-11-09 Test Time: 15:00:37 Pat Name: DUANE BRAVO Department: Room: Gender: F Mule Driver: : 1950 Requested By: KULWANT TRUJILLO Order Number: [id number] Reading MD: Measurements Intervals [place] Rate: 65 P: 47 FL: 176 QRS: 29 QRSD: 90 T: 66 QT: 442 QTc: 465 Interpretive Statements SINUS RHYTHM T ABNORMALITY IN HIGH LATERAL LEADS ABNORMAL ECG RI6.01 No previous ECG available for comparison
== END 2019-11-09 20:20 | disposition home or self-care (01) ==
LOC: ER 14:49
DX: R40.4 Transient alteration of awareness (principal); R19.7 Diarrhea, unspecified; J44.9 Chronic obstructive pulmonary disease, unspecified; G20 Parkinson's disease; F02.80 Dementia in other diseases classified elsewhere, unspecified severity, without behavioral disturbance, psychotic disturbance, mood disturbance, and anxiety; F32.9 Major depressive disorder, single episode, unspecified; E11.9 Type 2 diabetes mellitus without complications; K21.9 Gastro-esophageal reflux disease without esophagitis; E78.00 Pure hypercholesterolemia, unspecified; I10 Essential (primary) hypertension; F20.9 Schizophrenia, unspecified; Z87.891 Personal history of nicotine dependence; Z88.0 Allergy status to penicillin; Z88.5 Allergy status to narcotic agent
CPT/HCPCS: 36415; 70450; 71045; 80053; 80307; 81001; 83605; 83690; 83735; 84484; 85007; 85025; 85379; 87040; 87086; 96360; 96361; 99285; J7030; 87077; 87186; 93005

== ENCOUNTER 2020-05-21 19:42 | Emergency (ER) | payer OTHER, MEDICAID ==
[~2020-05-21] VITALS: Ht 162.6 cm; Wt 77.7 kg
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
--- NOTE | 2020-05-21 20:22 | RAD ---
PQRS Compliance Statement: One or more of the following individualized dose reduction techniques were utilized for this examinat ion: 1. Automated exposure control 2. Adjustment of the mA and/or kV according to patient size 3. Use of iterative reconstruction technique CT head and cervical spine without contrast 05/21/2020 7:56 PM INDICATION: Fall, altered mental status COMPARISON: CT head 11/09/2019, CT head and cervical spine 05/31/2019 TECHNIQUE: Multiple axial CT images of the head were obtained from skull base through the vertex with out intravenous contrast. Multiple axial CT images of the cervical spine were obtained without intrav enous contrast. Coronal and sagittal reformats are provided. FINDINGS: Head: Ventricles, sulci and basal cisterns are prominent compatible with generalized cerebral volume loss.. Ventriculomegaly may be out of proportion to sulcal volume loss. There is no hydrocephalus. [place]-whi te matter differentiation is normal. There is no acute intracranial hemorrhage. There is no mass, mas s effect or midline shift. Posterior fossa is normal in appearance. Visualized portions of the orbits are normal. Paranasal sinuses are well aerated. Mastoid air cells a re well aerated. Scalp and calvaria are normal. Cervical spine: 2 mm retrolisthesis of C5 on C6 and C6 on C7. Moderate disc height loss at C5-C6 and C6-C7. At C5-C6, there is a posterior disc osteophyte complex. There is moderate facet arthropathy and mild uncoverte bral disease. There is mild left neuroforaminal stenosis. At C6-C7, there is a posterior disc osteoph yte complex. There is mild facet and uncovertebral joint disease. Mild bilateral neuroforaminal steno sis. Endplate degenerative changes with subcortical cystic changes identified at C5-C6 and C6-7 judy tible with moderate degenerative disc disease. There is no prevertebral soft tissue swelling. Thyroid gland is normal in appearance. Visualized portions of the lung apices are normal without evidence fo r suspicious pulmonary nodule or infiltrate. IMPRESSION: 1. No acute intracranial hemorrhage. 2. Moderate ventriculomegaly, out of proportion to sulcal volume loss. Consideration may be given for normal pressure hydrocephalus. 3. Low-attenuation in the periventricular white matter is suggestive of chronic small vessel ischemic changes. 4. No acute fracture of the cervical spine. Moderate cervical spondylosis. Electronically signed by: Annie Gardner MD (05/21/2020 8:20 PM) [facility]
[2020-05-21] MEDS ORDERED: IV NORMAL SALINE 1000ML BAG 1,000 ML IV ONE (20:30)
--- NOTE | 2020-05-21 21:00 | RAD ---
INDICATION: Reason: ams / Spl. Instructions: / History: COMPARISON: November 09, 2019 FINDINGS: Single view of chest obtained. Hypoexpanded exam. Calcified lymph nodes in the mediastinum which can be from prior granulomatous dis ease. Chronic deformity of right proximal humerus. Mild interstitial opacities bilaterally with hazy opacity at lung bases. IMPRESSION: * Mild interstitial opacities bilaterally with more focal component at lung bases. Could be secondar y to mild edema or interstitial infiltrate Electronically signed by: Darien Gutiérrez MD (05/21/2020 8:58 PM) [id number]
[2020-05-21 21:28] LABS: BASO # 0.1 x10^3/uL (0.0-0.2); BASO % 1 % (0-3); EOS # 0.1 x10^3/uL (0.0-0.7); EOS % 2 % (0-3); HEMATOCRIT 32.8 % (36.0-47.0); LYMPH # 2.1 x10^3/uL (1.0-4.8); LYMPH % 34 % (24-48); MEAN CORPUSCULAR HEMOGLOBIN 32 pg (25-35); MEAN CORPUSCULAR HGB CONC 34 g/dL (31-37); MEAN CORPUSCULAR VOLUME 94 fL (79-100); MONO # 0.7 x10^3/uL (0.0-1.1); MONO % 11 % (0-9); NEUT # 3.3 x10^3/uL (1.8-7.7); NEUT % 53 % (31-73); PLATELET COUNT 165 x10^3/uL (140-400); RED BLOOD COUNT 3.48 x10^6/uL (3.50-5.40); RED CELL DISTRIBUTION WIDTH 13.3 % (11.5-14.5); WHITE BLOOD COUNT 6.3 x10^3/uL (4.0-11.0)
[2020-05-21 21:38] LABS: CALCIUM 8.3 mg/dL (8.5-10.1); CREATININE 1.1 mg/dL (0.6-1.0); GFR 49.4; PROTHROMBIN TIME PATIENT 13.2 SEC (11.7-14.0)
[2020-05-21 21:44] LABS: ALBUMIN 2.4 g/dL (3.4-5.0); ALBUMIN/GLOBULIN RATIO 0.9 (1.0-1.7); MAGNESIUM 1.7 mg/dL (1.8-2.4); PHOSPHORUS 3.7 mg/dL (2.6-4.7); TOTAL BILIRUBIN 0.2 mg/dL (0.2-1.0); TOTAL PROTEIN 5.1 g/dL (6.4-8.2)
[2020-05-21 21:55] LABS: BILIRUBIN,URINE NEGATIVE (NEG); CLARITY,URINE CLEAR; COLOR,URINE YELLOW; NITRITE,URINE NEGATIVE (NEG); PH,URINE 5.5 (<5.0-8.0); PROTEIN,URINE NEGATIVE (NEG-TRACE); UROBILINOGEN,URINE 0.2 mg/dL (0.2 mg/dL)
[2020-05-21 22:06] LABS: AMORPHOUS SEDIMENT,UR PRESENT /HPF; BACTERIA,URINE 0 /HPF (0-FEW); HYALINE CASTS, URINE OCCASIONAL /HPF; RBC,URINE OCC /HPF (0-2); WBC,URINE OCC /HPF (0-4)
[2020-05-21 23:10] LABS: BASE EXCESS ABG -1 mmol/L (-3-3); FIO2 ABG 36; HCO3 ABG 24 mmol/L (21-28); PCO2 ABG 45 mmHg (35-46); PO2 ABG 125 mmHg (65-108); SAT O2 ABG 98 % (92-99)
[2020-05-21 23:56] LABS: AMPHETAMINE/METHAMPHETAMINE NEG (NEG); BARBITURATES NEG (NEG); BENZODIAZEPINES NEG (NEG); CANNABINOIDS NEG (NEG); COCAINE NEG (NEG); METHADONE NEG (NEG); OPIATES NEG (NEG); PHENCYCLIDINE NEG (NEG)
[2020-05-22 00:26] VITALS: BP 143/65
== END 2020-05-22 01:00 | disposition home or self-care (01) ==
LOC: ER 19:42
DX: R53.83 Other fatigue (principal); R41.82 Altered mental status, unspecified; F41.9 Anxiety disorder, unspecified; J44.9 Chronic obstructive pulmonary disease, unspecified; F03.90 Unspecified dementia, unspecified severity, without behavioral disturbance, psychotic disturbance, mood disturbance, and anxiety; F32.9 Major depressive disorder, single episode, unspecified; E11.9 Type 2 diabetes mellitus without complications; K21.9 Gastro-esophageal reflux disease without esophagitis; E78.00 Pure hypercholesterolemia, unspecified; I10 Essential (primary) hypertension; F20.9 Schizophrenia, unspecified; Z98.890 Other specified postprocedural states; Z87.891 Personal history of nicotine dependence; Z88.0 Allergy status to penicillin; Z88.5 Allergy status to narcotic agent
CPT/HCPCS: 36415; 36600; 70450; 71045; 72125; 80053; 80307; 81001; 82140; 82805; 83605; 83690; 83735; 83880; 84100; 84484; 85025; 85610; 87040; 87086; 93005; 96360; 99285; J7030

== ENCOUNTER 2020-10-12 10:14 | Emergency (ER) | payer OTHER, MEDICAID ==
[~2020-10-12] VITALS: Ht 167.6 cm; Wt 75.0 kg
[2020-10-12 10:52] LABS: BASO # 0.1 x10^3/uL (0.0-0.2); BASO % 1 % (0-3); EOS # 0.2 x10^3/uL (0.0-0.7); EOS % 3 % (0-3); HEMATOCRIT 39.1 % (36.0-47.0); HEMOGLOBIN 12.9 g/dL (12.0-15.5); LYMPH # 1.5 x10^3/uL (1.0-4.8); LYMPH % 30 % (24-48); MEAN CORPUSCULAR HEMOGLOBIN 31 pg (25-35); MEAN CORPUSCULAR HGB CONC 33 g/dL (31-37); MEAN CORPUSCULAR VOLUME 94 fL (79-100); MONO # 0.5 x10^3/uL (0.0-1.1); MONO % 11 % (0-9); NEUT # 2.7 x10^3/uL (1.8-7.7); NEUT % 55 % (31-73); PLATELET COUNT 282 x10^3/uL (140-400); RED BLOOD COUNT 4.16 x10^6/uL (3.50-5.40); RED CELL DISTRIBUTION WIDTH 13.6 % (11.5-14.5); WHITE BLOOD COUNT 4.9 x10^3/uL (4.0-11.0)
[2020-10-12 11:00] LABS: CALCIUM 9.1 mg/dL (8.5-10.1); CREATININE 1.1 mg/dL (0.6-1.0); GFR 49.4; POTASSIUM 4.7 mmol/L (3.5-5.1)
[2020-10-12 11:03] LABS: BILIRUBIN,URINE NEGATIVE (NEG); CLARITY,URINE CLEAR; COLOR,URINE YELLOW; NITRITE,URINE NEGATIVE (NEG); PROTEIN,URINE NEGATIVE (NEG-TRACE); UROBILINOGEN,URINE 0.2 mg/dL (0.2 mg/dL)
[2020-10-12 11:08] LABS: ALBUMIN 2.3 g/dL (3.4-5.0); ALBUMIN/GLOBULIN RATIO 0.6 (1.0-1.7); C-REACTIVE PROTEIN 31.6 mg/L (0-3.3); MAGNESIUM 1.7 mg/dL (1.8-2.4); TOTAL BILIRUBIN 0.2 mg/dL (0.2-1.0); TOTAL PROTEIN 5.9 g/dL (6.4-8.2)
[2020-10-12 11:12] LABS: BACTERIA,URINE 0 /HPF (0-FEW); RBC,URINE OCC /HPF (0-2); WBC,URINE OCC /HPF (0-4)
--- NOTE | 2020-10-12 11:19 | RAD ---
EXAM: Head CT without contrast. HISTORY: Headache. TECHNIQUE: Computed tomographic images of the head were obtained without contrast. *One or more of the following individualized dose reduction techniques were utilized for this examina tion: 1. Automated exposure control. 2. Adjustment of the mA and/or kV according to patient size. 3. Use of iterative reconstruction technique. COMPARISON: 05/21/2020. FINDINGS: There is no hemorrhage. There is no mass effect or midline shift. There is stable to slight ly increased dilatation of the ventricles. There is decreased attenuation within the cerebral white m atter, likely due to chronic small vessel disease. The orbits are unremarkable. The visualized parana lindsay sinuses are unremarkable. There are right mastectomy changes. There is pneumatization of the left petrous apex, a normal variant. There is no suspicious calvarial lesion. IMPRESSION: 1. Stable slight increased ventricular enlargement. This is slightly greater than expected for the de gree of cerebral atrophy. Correlate for possible hydrocephalus. 2. Bilateral cerebral white matter changes and cerebral volume loss, greater than expected for patien t age. 3. Note is made that MRI is more sensitive for acute infarction. Electronically signed by: Elizabeth Dennison MD (10/12/2020 11:17 AM) [id number]
[2020-10-12] MEDS ORDERED: MAGNESIUM SULFATE 1GM 100 ML IV ONE (12:15)
[2020-10-12] MEDS ORDERED: KETOROLAC 15 MG/ML VIAL. IVP ONE (12:15)
--- NOTE | 2020-10-12 13:33 | PHYS DOC ---
Past Medical History Past Medical History: Anxiety, Bipolar, Dementia, Depression, GERD, High Cholesterol, Hypertension, Unknown Additional Past Medical Histor: PARKINSONS, SCHIZOAFFECTIVE, PULMONARY HEART DISEASE, CHRONIC PN, GAIT PROB Past Surgical History: Other Additional Past Surgical Histo: UNKNOWN Smoking Status: Former Smoker Additional Information: "50 YEARS AGO" Alcohol Use: None Drug Use: None General Adult EDM: Chief Complaint: HEADACHE HPI: HPI: Patient is a 70 year old female who was brought here from [facility] for evaluation of headache that been going on for 3 days. Patient said the pain on the left side behind her left eyebrow area, denies any blurry vision. Patient denies any injury. Patient has a history of bipolar disorder, schizophrenia, and depression. Patient has history of headache. Patient denies any cough or fever. Patient denied chest pain, no abdominal pain, no nausea or vomiting. No weakness or numbness anywhere. Review of Systems: Review of Systems: Constitutional: Denies fever or chills. [] Eyes: Denies change in visual acuity. [] HENT: Denies nasal congestion or sore throat. [] Respiratory: Denies cough or shortness of breath. [] Cardiovascular: Denies chest pain or edema. [] GI: Denies abdominal pain, nausea, vomiting, bloody stools or diarrhea. [] : Denies dysuria. [] Musculoskeletal: Denies back pain or joint pain. [] Integument: Denies rash. [] Neurologic: Positive headache, no focal weakness or sensory changes. [] Endocrine: Denies polyuria or polydipsia. [] Lymphatic: Denies swollen glands. [] Psychiatric: Denies depression or anxiety. [] Heart Score: C/O Chest Pain: N/A Risk Factors: Risk Factors: DM, Current or recent (<one month) smoker, HTN, HLP, family history of CAD, obesity. Risk Scores: Score 0 - 3: 2.5% MACE over next 6 weeks - Discharge Home Score 4 - 6: 20.3% MACE over next 6 weeks - Admit for Clinical Observation Score 7 - 10: 72.7% MACE over next 6 weeks - Early Invasive Strategies Current Medications: Current Medications Medications (Trade) Dose Ordered Sig/Marley Start Time Stop Time Status Last Admin Dose Admin Ketorolac Tromethamine (Toradol 15mg Vial) 15 mg 1X ONCE 10/12/20 12:15 10/12/20 12:16 DC 10/12/20 12:28 15 MG Magnesium Sulfate/ Dextrose 100 ml @ 100 mls/hr 1X ONCE 10/12/20 12:15 10/12/20 13:14 DC 10/12/20 12:24 100 MLS/HR Allergies: Allergies: Allergies Coded Allergies Type Severity Reaction Last Updated Verified codeine Allergy Severe hives, shortness of breath 09/19/16 Yes Penicillins Allergy Intermediate 05/03/19 Yes benztropine Allergy Unknown Unknown 10/12/20 Yes Physical Exam: PE: Constitutional: Well developed, well nourished, no acute distress, non-toxic appearance. [] HENT: Normocephalic, atraumatic, bilateral external ears normal, oropharynx moist, no oral exudates, nose normal. NO TEMPORAL ARTERY TENDERNESS TO PALPATION. Eyes: PERRLA, EOMI, conjunctiva normal, no discharge. [] Neck: Normal range of motion, no tenderness, supple, no stridor. [] Cardiovascular:Heart rate regular rhythm, no murmur [] Lungs & Thorax: Bilateral breath sounds clear to auscultation [] Abdomen: Bowel sounds normal, soft, no tenderness, no masses, no pulsatile masses. [] Skin: Warm, dry, no erythema, no rash. [] Back: No tenderness, no CVA tenderness. [] Extremities: No tenderness, no cyanosis, no clubbing, ROM intact, no edema. [] Neurologic: Alert and oriented X 3, normal motor function, normal sensory function, no focal deficits noted. [] Psychologic: Affect normal, judgement normal, mood normal. [] Current Patient Data: Labs: Laboratory Tests Test 10/12/20 10:39 10/12/20 10:47 White Blood Count 4.9 x10^3/uL (4.0-11.0) Red Blood Count 4.16 x10^6/uL (3.50-5.40) Hemoglobin 12.9 g/dL (12.0-15.5) Hematocrit 39.1 % (36.0-47.0) Mean Corpuscular Volume 94 fL (79-100) Mean Corpuscular Hemoglobin 31 pg (25-35) Mean Corpuscular Hemoglobin Concent 33 g/dL (31-37) Red Cell Distribution Width 13.6 % (11.5-14.5) Platelet Count 282 x10^3/uL (140-400) Neutrophils (%) (Auto) 55 % (31-73) Lymphocytes (%) (Auto) 30 % (24-48) Monocytes (%) (Auto) 11 % (0-9) H Eosinophils (%) (Auto) 3 % (0-3) Basophils (%) (Auto) 1 % (0-3) Neutrophils # (Auto) 2.7 x10^3/uL (1.8-7.7) Lymphocytes # (Auto) 1.5 x10^3/uL (1.0-4.8) Monocytes # (Auto) 0.5 x10^3/uL (0.0-1.1) Eosinophils # (Auto) 0.2 x10^3/uL (0.0-0.7) Basophils # (Auto) 0.1 x10^3/uL (0.0-0.2) Erythrocyte Sedimentation Rate 35 (0-25) H Sodium Level 139 mmol/L (136-145) Potassium Level 4.7 mmol/L (3.5-5.1) Chloride Level 103 mmol/L (98-107) Carbon Dioxide Level 30 mmol/L (21-32) Anion Gap 6 (6-14) Blood Urea Nitrogen 14 mg/dL (7-20) Creatinine 1.1 mg/dL (0.6-1.0) H Estimated GFR (Cockcroft-Gault) 49.4 BUN/Creatinine Ratio 13 (6-20) Glucose Level 169 mg/dL (70-99) H Calcium Level 9.1 mg/dL (8.5-10.1) Magnesium Level 1.7 mg/dL (1.8-2.4) L Total Bilirubin 0.2 mg/dL (0.2-1.0) Aspartate Amino Transferase (AST) 26 U/L (15-37) Alanine Aminotransferase (ALT) 17 U/L (14-59) Alkaline Phosphatase 193 U/L (46-116) H C-Reactive Protein, Quantitative 31.6 mg/L (0-3.3) H Total Protein 5.9 g/dL (6.4-8.2) L Albumin 2.3 g/dL (3.4-5.0) L Albumin/Globulin Ratio 0.6 (1.0-1.7) L Urine Collection Type U cath Urine Color Yellow Urine Clarity Clear Urine pH 6.0 (<5.0-8.0) Urine Specific [place] 1.020 (1.000-1.030) Urine Protein Negative mg/dL (NEG-TRACE) Urine Glucose (UA) Negative mg/dL (NEG) Urine Ketones (Stick) Trace mg/dL (NEG) Urine Blood Negative (NEG) Urine Nitrite Negative (NEG) Urine Bilirubin Negative (NEG) Urine Urobilinogen Dipstick 0.2 mg/dL (0.2 mg/dL) Urine Leukocyte Esterase Negative (NEG) Urine RBC Occ /HPF (0-2) Urine WBC Occ /HPF (0-4) Urine Squamous Epithelial Cells Mod /LPF Urine Bacteria 0 /HPF (0-FEW) Urine Mucus Marked /LPF Laboratory Tests 10/12/20 10:39 Laboratory Tests 10/12/20 10:39 Vital Signs: Vital Signs Date Time Temp Pulse Resp B/P (MAP) Pulse Ox O2 Delivery O2 Flow Rate FiO2 10/12/20 10:15 97.5 58 20 198/87 (124) 98 Room Air 97.5 EKG: EKG: [] Radiology/Procedures: Radiology/Procedures: [facility] [address] [place] [address] IMAGING REPORT Signed PATIENT: DUANE BRAVO ACCOUNT: [id number] : 1950 LOCATION: ER AGE: 70 SEX: F EXAM STATUS: PRE ER ORD. PHYSICIAN: ARTURO ALBARRAN DO REASON: Left-sided headache for 3 days. PROCEDURE: CT HEAD WO CONTRAST EXAM: Head CT without contrast. HISTORY: Headache. TECHNIQUE: Computed tomographic images of the head were obtained without contrast. *One or more of the following individualized dose reduction techniques were utilized for this examination: 1. Automated exposure control. 2. Adjustment of the mA and/or kV according to patient size. 3. Use of iterative reconstruction technique. COMPARISON: 05/21/2020. FINDINGS: There is no hemorrhage. There is no mass effect or midline shift. There is stable to slightly increased dilatation of the ventricles. There is decreased attenuation within the cerebral white matter, likely due to chronic small vessel disease. The orbits are unremarkable. The visualized paranasal sinuses are unremarkable. There are right mastectomy changes. There is pneumatization of the left petrous apex, a normal variant. There is no suspicious calvarial lesion. IMPRESSION: 1. Stable slight increased ventricular enlargement. This is slightly greater than expected for the degree of cerebral atrophy. Correlate for possible hyd rocephalus. 2. Bilateral cerebral white matter changes and cerebral volume loss, greater than expected for patient age. 3. Note is made that MRI is more sensitive for acute infarction. Electronically signed by: Elizabeth Pena MD (10/12/2020 11:17 AM) [id number] DICTATED and SIGNED BY: ELIZABETH PENA MD DATE: 10/12/20 [id number] Course & Med Decision Making: Course & Med Decision Making Pertinent Labs and Imaging studies reviewed. (See chart for details) Patient is a 70-year-old female who was brought here from a [facility] for evaluation of headache, CT scan of her head did not show any acute problem. On medication in ER, she feels much better. Patient had no blurry vision, no CRP or ESR was slightly elevated. It is unlikely that she has temporal arteritis. Dragon Disclaimer: [email or web address] Disclaimer: This electronic medical record was generated, in whole or in part, using a voice recognition dictation system. Departure Departure Impression: Primary Impression: Headache Disposition: 01 HOME / SELF CARE / HOMELESS Condition: STABLE Referrals: YESSICA PASCAL MD (PCP) Patient Instructions: General Headache Without Cause Additional Instructions: Thank you for visiting our Emergency Department. We appreciate you trusting us with your care. If any additional problems come up don't hesitate to return to visit us. Please follow up with your primary care provider so they can plan additional care if needed and know about the problem that you had. If symptoms worsen come back to the Emergency Department. Any concerning symptoms that start such as chest pain, shortness of air, weakness or numbness on one side of the body, running high fevers or any other concerning symptoms return to the ER. ARTURO ALBARRAN DO Oct 12, 2020 13:33
[2020-10-12 15:25] VITALS: BP 182/81
== END 2020-10-12 16:17 | disposition home or self-care (01) ==
LOC: ER 10:14
DX: R51.9 Headache, unspecified (principal); H57.12 Ocular pain, left eye; F31.9 Bipolar disorder, unspecified; K21.9 Gastro-esophageal reflux disease without esophagitis; F03.90 Unspecified dementia, unspecified severity, without behavioral disturbance, psychotic disturbance, mood disturbance, and anxiety; E78.00 Pure hypercholesterolemia, unspecified; I10 Essential (primary) hypertension; F25.9 Schizoaffective disorder, unspecified; Z87.891 Personal history of nicotine dependence; Z88.0 Allergy status to penicillin; Z88.5 Allergy status to narcotic agent; Z88.8 Allergy status to other drugs, medicaments and biological substances
CPT/HCPCS: 36415; 70450; 80053; 81001; 83735; 85025; 85651; 86140; 96365; 96375; 99285; J1885; J3475

== ENCOUNTER 2021-04-05 16:45 | Inpatient (IN) | payer OTHER, MEDICAID ==
[~2021-04-05] VITALS: Ht 165.1 cm; Wt 70.5 kg
[~2021-04-05 16:45] MED LIST changes: -FLUO20CA20 PO; +FLUO20CA22 PO; +TIZA-75 PO; -TIZA4TAB2 PO
[2021-04-05 17:25] LABS: BASO # 0.1 x10^3/uL (0.0-0.2); BASO % 1 % (0-3); EOS # 0.2 x10^3/uL (0.0-0.7); EOS % 3 % (0-3); HEMATOCRIT 44.1 % (36.0-47.0); HEMOGLOBIN 14.5 g/dL (12.0-15.5); LYMPH # 1.6 x10^3/uL (1.0-4.8); LYMPH % 28 % (24-48); MEAN CORPUSCULAR HEMOGLOBIN 31 pg (25-35); MEAN CORPUSCULAR HGB CONC 33 g/dL (31-37); MEAN CORPUSCULAR VOLUME 94 fL (79-100); MONO # 0.5 x10^3/uL (0.0-1.1); MONO % 9 % (0-9); NEUT # 3.3 x10^3/uL (1.8-7.7); NEUT % 59 % (31-73); PLATELET COUNT 247 x10^3/uL (140-400); RED BLOOD COUNT 4.68 x10^6/uL (3.50-5.40); RED CELL DISTRIBUTION WIDTH 13.3 % (11.5-14.5); WHITE BLOOD COUNT 5.6 x10^3/uL (4.0-11.0)
[2021-04-05 17:41] LABS: BILIRUBIN,URINE NEGATIVE (NEG); CLARITY,URINE CLEAR; COLOR,URINE YELLOW; NITRITE,URINE NEGATIVE (NEG); PROTEIN,URINE NEGATIVE (NEG-TRACE); UROBILINOGEN,URINE 0.2 mg/dL (0.2 mg/dL)
[2021-04-05 17:57] LABS: BASE EXCESS COOX 3 mmol/L (-3-3); HCO3 COOX 29 mmol/L (21-28); METHEMOGLOBIN 0.4 % (0.0-1.9); OXYHEMOGLOBIN 88.2 %; PCO2 COOX 48 mmHg (35-46); PO2 COOX 59 mmHg (65-108); SAT O2 COOX 89 % (92-99)
[2021-04-05 17:57] LABS: CALCIUM 8.6 mg/dL (8.5-10.1); CREATININE 1.7 mg/dL (0.6-1.0); GFR 29.8; POTASSIUM 5.8 mmol/L (3.5-5.1)
[2021-04-05 18:05] LABS: BACTERIA,URINE 0 /HPF (0-FEW); HYALINE CASTS, URINE MODERATE /HPF
--- NOTE | 2021-04-05 18:09 | EKG ---
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
[2021-04-05 18:10] LABS: ALBUMIN 2.3 g/dL (3.4-5.0); ALBUMIN/GLOBULIN RATIO 0.7 (1.0-1.7); CREATINE KINASE 60 U/L (26-192); MAGNESIUM 1.9 mg/dL (1.8-2.4); TOTAL BILIRUBIN 0.1 mg/dL (0.2-1.0); TOTAL PROTEIN 5.7 g/dL (6.4-8.2)
[2021-04-05] MEDS ORDERED: methylPREDNISolone SOD SUCC PF 125 MG/2 ML VIAL. IV ONE (18:15)
[2021-04-05] MEDS ORDERED: IPRATRPIUM/ALBUTEROL 0.5/2.5MG 3 ML NEBU. NEB ONE (18:15)
[2021-04-05] MEDS ORDERED: levOFLOXacin PER PHARMACY. MC PRN (18:15)
[2021-04-05] MEDS ORDERED: ALBUTEROL SULFATE 2.5 MG/3 ML NEBU. CONT NEB ONE (18:15)
--- NOTE | 2021-04-05 18:22 | RAD ---
AP chest. HISTORY: Confusion, fall AP view of the chest was compared with an old study from May 2020. Heart is normal in size. Ther e is a large subcarinal calcified node. There is no definite effusion. There are diffuse right lung i nfiltrates. The pattern suggests an acute pneumonia. IMPRESSION: 1. Diffuse right lung infiltrates. Electronically signed by: Roderick Guzman MD (04/05/2021 6:19 PM) [facility]
--- NOTE | 2021-04-05 18:57 | PHYS DOC ---
Past Medical History Past Medical History: Anxiety, Bipolar, Dementia, Depression, GERD, High Cholesterol, Hypertension, Unknown Additional Past Medical Histor: PARKINSONS, SCHIZOAFFECTIVE, PULMONARY HEART DISEASE, CHRONIC PN, GAIT PROB Past Surgical History: Other Additional Past Surgical Histo: UNKNOWN Smoking Status: Former Smoker Additional Information: Reports she quit smoking 7-8 years ago Alcohol Use: None Drug Use: None General Adult EDM: Chief Complaint: SHORTNESS OF BREATH HPI: HPI: Limited HPI related to patient's history of severe dementia with cognitive deficits. Patient is a 71-year-old female presents to the emergency department via EMS without complaints. EMS stockroom attendant reports patient has history of dementia, they were given report by long-term staff that patient fell, EMS stockroom attendant reports during there on scene assessment patient was hypoxic and hypotensive, was placed on 6 L per nasal cannula and brought into the emergency department for evaluation. No long-term report called to ED prior to patient's arrival to the emergency department. Per long-term transfer sheets, patient has history of dementia, GERD, hypertension, dry eye syndrome, allergic rhinitis, muscle spasms, chronic laryngitis, chronic left hip pain, altered mental status, muscle weakness, bipolar disorder, schizoaffective disorder, anxiety disorder, major depressive disorder, pulmonary heart disease, unspecified chronic pains, reduced mobility, weakness, abnormalities of gait, chronic dyspnea, cognitive communication deficits, Parkinson's, unsteadiness on feet, COPD, hyperlipidemia, asthma, type 2 diabetes mellitus. Review of Systems: Review of Systems: Limited ROS related to patient's cognitive deficits. Heart Score: C/O Chest Pain: No Risk Factors: Risk Factors: DM, Current or recent (<one month) smoker, HTN, HLP, family history of CAD, obesity. Risk Scores: Score 0 - 3: 2.5% MACE over next 6 weeks - Discharge Home Score 4 - 6: 20.3% MACE over next 6 weeks - Admit for Clinical Observation Score 7 - 10: 72.7% MACE over next 6 weeks - Early Invasive Strategies Current Medications: Current Medications Medications (Trade) Dose Ordered Sig/Marley Start Time Stop Time Status Last Admin Dose Admin Albuterol Sulfate (Ventolin Neb Soln) 10 mg 1X ONCE 04/05/21 18:15 04/05/21 18:16 DC 04/05/21 18:15 10 MG Albuterol/ Ipratropium (Duoneb) 3 ml 1X ONCE 04/05/21 18:15 04/05/21 18:16 DC 04/05/21 18:15 3 ML Levofloxacin/ Dextrose 150 ml @ 100 mls/hr Q48H 04/07/21 18:00 Levofloxacin/ Dextrose (Levaquin Per Pharmacy) 1 each PRN DAILY PRN 04/05/21 18:15 Methylprednisolone Sodium Succinate (SOLU-Medrol 125MG VIAL) 125 mg 1X ONCE 04/05/21 18:15 04/05/21 18:16 DC 04/05/21 18:21 125 MG Allergies: Allergies: Allergies Coded Allergies Type Severity Reaction Last Updated Verified codeine Allergy Severe hives, shortness of breath 09/19/16 Yes Penicillins Allergy Intermediate 05/03/19 Yes benztropine Allergy Unknown Unknown 10/12/20 Yes Physical Exam: PE: Constitutional: Well developed, well nourished, no acute distress, non-toxic appearance. 71-year-old female in no apparent distress. HENT: Normocephalic, atraumatic. Eyes: Conjunctiva normal, no discharge. Neck: Normal range of motion, no stridor. Cardiovascular: No cyanosis appreciated, distal cap refill less than 2 seconds. Lungs & Thorax: Patient is in no respiratory distress, no audible adventitious lung sounds appreciated. Diminished lung sounds right lower lobe, wet rails right upper lobe, I/E wheezing throughout left lung lobes to auscultation, the patient is not in respiratory distress. Examination while patient is on oxygen at 12 L per nonrebreather mask. Abdomen: Nontender, no abnormalities noted. Skin: Warm, dry, no erythema, no rash. Back: No tenderness, no deformities. Extremities: No tenderness, no cyanosis, no clubbing, ROM intact, no edema. Neurologic: Alert and oriented to self only, normal motor function, normal sensory function, no focal deficits noted. Psychologic: Affect normal, judgement normal, mood normal. Patient in pleasant mood, believes she is [place] on her [place]. Current Patient Data: Labs: Laboratory Tests Test 04/05/21 17:10 04/05/21 17:22 04/05/21 17:50 White Blood Count 5.6 x10^3/uL (4.0-11.0) Red Blood Count 4.68 x10^6/uL (3.50-5.40) Hemoglobin 14.5 g/dL (12.0-15.5) Hematocrit 44.1 % (36.0-47.0) Mean Corpuscular Volume 94 fL (79-100) Mean Corpuscular Hemoglobin 31 pg (25-35) Mean Corpuscular Hemoglobin Concent 33 g/dL (31-37) Red Cell Distribution Width 13.3 % (11.5-14.5) Platelet Count 247 x10^3/uL (140-400) Neutrophils (%) (Auto) 59 % (31-73) Lymphocytes (%) (Auto) 28 % (24-48) Monocytes (%) (Auto) 9 % (0-9) Eosinophils (%) (Auto) 3 % (0-3) Basophils (%) (Auto) 1 % (0-3) Neutrophils # (Auto) 3.3 x10^3/uL (1.8-7.7) Lymphocytes # (Auto) 1.6 x10^3/uL (1.0-4.8) Monocytes # (Auto) 0.5 x10^3/uL (0.0-1.1) Eosinophils # (Auto) 0.2 x10^3/uL (0.0-0.7) Basophils # (Auto) 0.1 x10^3/uL (0.0-0.2) Sodium Level 143 mmol/L (136-145) Potassium Level 5.8 mmol/L (3.5-5.1) H Chloride Level 104 mmol/L (98-107) Carbon Dioxide Level 34 mmol/L (21-32) H Anion Gap 5 (6-14) L Blood Urea Nitrogen 32 mg/dL (7-20) H Creatinine 1.7 mg/dL (0.6-1.0) H Estimated GFR (Cockcroft-Gault) 29.8 BUN/Creatinine Ratio 19 (6-20) Glucose Level 222 mg/dL (70-99) H Lactic Acid Level 1.9 mmol/L (0.4-2.0) Calcium Level 8.6 mg/dL (8.5-10.1) Phosphorus Level 5.0 mg/dL (2.6-4.7) H Magnesium Level 1.9 mg/dL (1.8-2.4) Total Bilirubin 0.1 mg/dL (0.2-1.0) L Aspartate Amino Transferase (AST) 22 U/L (15-37) Alanine Aminotransferase (ALT) 17 U/L (14-59) Alkaline Phosphatase 115 U/L (46-116) Creatine Kinase 60 U/L (26-192) Creatine Kinase MB (Mass) 0.7 ng/mL (0.0-3.6) Creatine Kinase MB Relative Index % (0-4) Troponin I High Sensitivity 9 ng/L (4-50) BM-Ddy-X-Type Natriuretic Peptide 472 pg/mL (0-124) H Total Protein 5.7 g/dL (6.4-8.2) L Albumin 2.3 g/dL (3.4-5.0) L Albumin/Globulin Ratio 0.7 (1.0-1.7) L Urine Collection Type U cath Urine Color Yellow Urine Clarity Clear Urine pH 5.0 (<5.0-8.0) Urine Specific [place] 1.010 (1.000-1.030) Urine Protein Negative mg/dL (NEG-TRACE) Urine Glucose (UA) Negative mg/dL (NEG) Urine Ketones (Stick) Negative mg/dL (NEG) Urine Blood Negative (NEG) Urine Nitrite Negative (NEG) Urine Bilirubin Negative (NEG) Urine Urobilinogen Dipstick 0.2 mg/dL (0.2 mg/dL) Urine Leukocyte Esterase Negative (NEG) Urine RBC 1-2 /HPF (0-2) Urine WBC 1-4 /HPF (0-4) Urine Squamous Epithelial Cells Mod /LPF Urine Bacteria 0 /HPF (0-FEW) Urine Hyaline Casts Moderate /HPF O2 Saturation 89 % (92-99) L Arterial Blood pH 7.40 (7.35-7.45) Arterial Blood pCO2 at Patient Temp 48 mmHg (35-46) H Arterial Blood pO2 at Patient Temp 59 mmHg (65-108) L Arterial Blood HCO3 29 mmol/L (21-28) H Arterial Blood Base Excess 3 mmol/L (-3-3) Oxyhemoglobin 88.2 % Methemoglobin 0.4 % (0.0-1.9) Carbon Monoxide, Quantitative 0.3 % (0.0-1.9) FiO2 Nrm 12 lpm Laboratory Tests 04/05/21 17:10 Laboratory Tests 04/05/21 17:10 Vital Signs: Vital Signs Date Time Temp Pulse Resp B/P (MAP) Pulse Ox O2 Delivery O2 Flow Rate FiO2 04/05/21 18:35 92 Nasal Cannula 10.0 04/05/21 16:56 98.3 61 24 123/64 (83) 98.3 EKG: EKG: EKG performed at 1700 by ED nursing staff shows normal sinus rhythm with a left bundle branch block, no other ectopy appreciated, heart rate 63 bpm, MS interval 0.182, QTc interval 0.454, no acute STEMI per SGARBOSSA's criteria, no ACS, no acute ischemia appreciated, EKG interpreted by ED attending physician Dr. Fuller. Radiology/Procedures: Radiology/Procedures: STATUS: REG ER ORD. PHYSICIAN: KEVIN GERBER APRN REASON: Confusion, fall/WITH RN @ 1720 PROCEDURE: CHEST AP ONLY AP chest. HISTORY: Confusion, fall AP view of the chest was compared with an old study from May 2020. Heart is normal in size. There is a large subcarinal calcified node. There is no definite effusion. There are diffuse right lung infiltrates. The pattern suggests an acute pneumonia. IMPRESSION: 1. Diffuse right lung infiltrates. Electronically signed by: Roderick Guzman MD (04/05/2021 6:19 PM) [facility] Course & Med Decision Making: Course & Med Decision Making Pertinent Labs and Imaging studies reviewed. (See chart for details) 71-year-old female, vital signs reviewed, resents emergency department concerning fall at long-term. Patient arrived to the emergency department hypoxic, ED triage nurse placed patient on 12 L oxygen per nonrebreather, patient's physical examination concerning for COPD exacerbation versus pneumonia versus other pulmonary process, the patient denies chest pains however patient does have history of dementia with cognitive deficits, will order chest x-ray, EKG, CBC, CMP, cardiac isoenzymes, mag, Phos, high-sensitivity troponin I, NT proBNP, CT head and C-spine related to report of patient fall, CT angio chest related to patient's severe hypoxic state requiring nonrebreather oxygen administration. Rapid Covid testing, Covid testing for PCR. Chest x-ray concerning for right lobe pneumonia, patient's GFR 29.8, unable to perform CT angio chest, will defer further chest imaging at this time. Patient started on Levaquin per pharmacy dosing, 125 Solu-Medrol, DuoNeb breathing treatment followed by 1 hour-long albuterol treatment, BiPAP and 100% FiO2, rate of 18, 18/6. Patient does require one-to-one constant observation related to dementia with cognitive deficits, patient pulls at facemask, tries to remove IV, when reoriented, patient agrees to leave items alone however goes back to these actions. One-to-one constant observation ordered to assist patient safety. Called and discussed patient case and ED work-up with inpatient management physician Dr. Franco who agrees patient's case warrants admission to the ICU. Patient is currently awaiting room assignment from manager housekeeping. [employer] Disclaimer: [employer] Disclaimer: This electronic medical record was generated, in whole or in part, using a voice recognition dictation system. Departure Departure Impression: Primary Impression: HCAP (healthcare-associated pneumonia) Additional Impressions: Hypoxia Dementia Qualified Codes: F03.91 - Unspecified dementia with behavioral disturbance Disposition: ADMITTED INPATIENT Admitting Physician: HIMS (Admit to ICU to inpatient management physician Dr. Franco.) Condition: GUARDED Referrals: YESSICA PASCAL MD (PCP) KEVIN GERBER APRN Apr 05, 2021 18:57
--- NOTE | 2021-04-05 20:29 | RAD ---
CT brain without contrast, CT C-spine without contrast. HISTORY: Confusion, fall CT brain CT scan of brain was done without contrast. Comparison is made with a study from October 12, 2020. Sinus es are clear. There is no skull fracture. There is no mass effect or shift of the midline. There is d iffuse atrophy. There is no intracranial hemorrhage or subdural hematoma. An acute CVA is not identif ied. There is mild decreased density in the periventricular white matter from chronic microvascular c hanges. There is been little change from the old study. IMPRESSION: 1. Diffuse atrophy. 2. No intracranial hemorrhage or acute CVA noted. End impression CT cervical spine Axial CT images were obtained through the cervical spine. Sagittal and coronal reconstructed images w ere reviewed. There is soft tissue opacification of the external auditory canal on the right, possibl y ear wax. Patient had previous mastoid surgery on the right. A C-spine fracture is not identified. T here is a soft tissue mass at the base of the neck on the right, adenopathy is possible. Ultrasound o r contrast CT could be of benefit. Thyroid is homogeneous. There is facet arthritis at multiple level s in the cervical spine. There is degenerative disc disease at C5-6 and C6-7. An acute fracture is no t identified. There is slight anterior subluxation C4 on C5. There is no focal disc protrusion. IMPRESSION: 1. Soft tissue opacification of the right external auditory canal probably related ear wax, there are changes of previous mastoid surgery on the right. 2. Possible soft tissue mass in the base the neck on the right correlation with ultrasound or contras t CT elbow. 3. Degenerative changes in the cervical spine. 4. No acute C-spine fracture. PQRS Compliance Statement: One or more of the following individualized dose reduction techniques were utilized for this examinat ion: 1. Automated exposure control 2. Adjustment of the mA and/or kV according to patient size 3. Use of iterative reconstruction technique Electronically signed by: Roderick Guzman MD (04/05/2021 8:27 PM) [facility]
[2021-04-05 21:00] VITALS: BP 114/61
--- NOTE | 2021-04-05 21:20 | NUR ---
pt transferred to ICU. assessed for need for niv, pt found to be awake and conversant, 94% on 10lnc. neither NIV nor HHN are appropriate at this time. Will continue to use nasal cannula to meet pt oxygenation needs and continue to monitor.
[2021-04-05 22:00] VITALS: BP 142/69
[2021-04-05 23:00] VITALS: BP 138/67
[2021-04-06] VITALS (14 sets, daily range): BP systolic 98–164; BP diastolic 48–74
--- NOTE | 2021-04-06 07:49 | PDOC1 ---
History and Physical Date of Service: DOS: DATE: 04/06/21 TIME: 07:37 Chief Complaint: Chief Complain: Shortness of breath History of Present Illness: HPI: 71-year-old female with past medical history of bipolar, dementia, depression, schizoaffective disorder, COPD who comes into the ED due to shortness of breath and hypoxia at medical [place]. Her O2 saturation was in the 70s initially and she was put on nasal cannula and BiPAP. Her saturations improved she was found to have right lobe pneumonia infiltrate seen on chest x-ray. Patient currently denies any fevers, chest pain, abdominal pain, dysuria or hematuria. Past Medical/Surgical History: PMH/PSH: Past Medical History: Anxiety, Bipolar, Dementia, Depression, GERD, High Cholesterol, Hypertension, PARKINSONS, SCHIZOAFFECTIVE, PULMONARY HEART DISEASE, CHRONIC PN, GAIT PROB Past Surgical History: UNKNOWN Allergies: Allergies: Coded Allergies: codeine (Verified Allergy, Severe, hives, shortness of breath, 09/19/16) Penicillins (Verified Allergy, Intermediate, 05/03/19) benztropine (Verified Allergy, Intermediate, 04/06/21) Family History: Family History: Reviewed with no relevant findings Social History: Social History: Smoking Status: Former Smoker Reports she quit smoking 7-8 years ago Alcohol Use: None Drug Use: None Current Medications: Current Medications Current Medications Levofloxacin/ Dextrose (Levaquin Per Pharmacy) 1 each PRN DAILY PRN MC SEE COMMENTS; Start 04/05/21 at 18:15 Methylprednisolone Sodium Succinate (SOLU-Medrol 125MG VIAL) 125 mg 1X ONCE IV Last administered on 04/05/21at 18:21; Start 04/05/21 at 18:15; Stop 04/05/21 at 18:16; Status DC Albuterol/ Ipratropium (Duoneb) 3 ml 1X ONCE NEB Last administered on 04/05/21at 18:15; Start 04/05/21 at 18:15; Stop 04/05/21 at 18:16; Status DC Albuterol Sulfate (Ventolin Neb Soln) 10 mg 1X ONCE CONT NEB Last administered on 04/05/21at 18:15; Start 04/05/21 at 18:15; Stop 04/05/21 at 18:16; Status DC Levofloxacin/ Dextrose 150 ml @ 100 mls/hr 1X ONCE IV Last administered on 04/05/21at 19:10; Start 04/05/21 at 18:15; Stop 04/05/21 at 19:44; Status DC Levofloxacin/ Dextrose 150 ml @ 100 mls/hr Q48H IV ; Start 04/07/21 at 18:00 Active Scripts Active Doxycycline Hyclate 100 Mg Tablet 1 Tab PO BID Levaquin (Levofloxacin) 500 Mg Tablet 1 Tab PO DAILY 10 Days Senna-Time S Tablet (Sennosides/Docusate Sodium) 1 Each Tablet 2 Tab PO DAILY10 Take by mouth 2 tablets daily Novolog Flexpen (Insulin Aspart) 100 Unit/1 Ml Insuln.pen 0-12 Unit SQ TIDAC inject subq tid ac: 101-150=2unit, 151-200=3 unit, 201-250=4 unit, 251-300=6 unit, 301-350=8 unit, 351-400=10 unit >401 call MD Mag-Oxide (Magnesium Oxide) 400 Mg Tablet 400 Mg PO BID Take one tablet two times daily by mouth Levemir Flextouch (Insulin Detemir) 100 Unit/1 Ml Insuln.pen 24 Units SQ BID Inject subq bid Novolog Flexpen (Insulin Aspart) 100 Unit/1 Ml Insuln.pen 12 Units SQ TIDAC Inject 12 units tid ac Mucinex (Guaifenesin) 600 Mg Tablet.er 1,200 Mg PO BID TAke by mouth bid for 5 days Albuterol Sulfate Neb Soln (Albuterol Sulfate) 2.5 Mg/3 Ml Vial.neb 2.5 Mg NEB QID Nebulizer treatment QID and prn q2hr for shortness of breath Reported Tylenol Extra Strength (Acetaminophen) 500 Mg Tablet 1,000 Mg PO Q8HRS PRN Tizanidine Hcl 4 Mg Tablet 1 Tab PO QHS Montelukast Sodium Tablet (Montelukast Sodium) 10 Mg Tablet 10 Mg PO HS Simethicone 100 Ml Liquid 30 Ml MC Q4HRS PRN Novolog (Insulin Aspart) 100 Unit/1 Ml Cartridge 10 Unit SQ TIDWMEALS Multivitamins (Multivitamin) 1 Each Tablet 1 Tab PO DAILY Losartan Potassium 50 Mg Tablet 50 Mg PO DAILY Haloperidol 2 Mg Tablet 1 Tab PO QHS Glucagon Emergency Kit (Glucagon,Human Recombinant) 1 Mg Kit 1 Mg IM PRN Flonase Allergy Relief (Fluticasone Propionate) 9.9 Ml Reading.susp 2 Sprays NS DAILY Fluoxetine Hcl 20 Mg Tablet 3 Tab PO QHS Breo Ellipta 100-25 Mcg Inh (Fluticasone/Vilanterol) 1 Each Aer.pow.ba 1 Puff IH DAILY Biofreeze (Menthol) 118 Ml Gel..ml. 118 Ml TP PRN PRN lower back and right shoulder Benztropine Mesylate 0.5 Mg Tablet 0.5 Tab PO QHS Artificial Tears Eye Drops (Dextran 70/Hypromellose) 15 Ml Drops 2 Drop EACHEYE QID Wellbutrin Xl (Bupropion Hcl) 150 Mg Tab.er.24h 1 Tab PO DAILY Vaseline White Petroleum (Petrolatum,White) 5 Gm Oint.pack 1 Gm TP HS Spiriva (Tiotropium [place]) 18 Mcg Cap.w.dev 1 Cap IH DAILY Simvastatin 20 Mg Tablet 20 Mg PO HS Ranitidine Hcl 300 Mg Tablet 1 Tab PO QHS Protonix (Pantoprazole Sodium) 40 Mg Tablet.dr 1 Tab PO DAILY Calcium 500 + Vit D 200 Tablet (Calcium Carbonate/Vitamin D3) 1 Each Tablet 1 Tab PO DAILY Alum-Mag Hydroxide-Simeth Liq (Mag Hydrox/Al Hydrox/Simeth) 360 Ml Oral.susp 30 Ml PO PRN Q4HRS PRN Isopto Tears (Hypromellose) 15 Ml Drops 15 Ml OP PRN Q6HRS PRN Anti-Diarrhea (Loperamide Hcl) 2 Mg Tablet 2 Mg PO PRN Q8HRS PRN Glucose Gel (Dextrose) 38 Gm Gel..gram. 38 Gm PO PRN PRN Donepezil Hcl 5 Mg Tablet 1 Tab PO HS Cyanocobalamin Injection (Cyanocobalamin (Vitamin B-12)) 1,000 Mcg/1 Ml Vial 1 Ml IM QMONTH Buspirone Hcl 5 Mg Tablet 1 Tab PO TID Aspirin Ec (Aspirin) 81 Mg Tablet.dr 1 Tab PO DAILY Proair Hfa Inhaler (Albuterol Sulfate) 8.5 Gm Hfa.aer.ad 2 Puff IH PRN Q6HRS PRN ROS: Review of Systems Review of System REVIEW OF SYSTEMS: GENERAL: Denies weakness SKIN: No bruising, hair changes or rashes. EYES: No blurred, double or loss of vision. NOSE AND THROAT: No history of nosebleeds, hoarseness or sore throat. HEART: No history of palpitations, chest pain or shortness of breath on exertion. LUNGS: Positive for shortness of breath GASTROINTESTINAL: Denies changes in appetite, nausea, vomiting, diarrhea or constipation. GENITOURINARY: No history of frequency, urgency, hesitancy or nocturia. NEUROLOGIC: Denies history of numbness, tingling, or tremor. PSYCHIATRIC: No history of panic, anxiety or depression. ENDOCRINE: No history of heat or cold intolerance, polyuria or polydipsia. EXTREMITIES: Denies joint pain, pain on walking or stiffness. Physical Exam: Vital Signs: Vital Signs Date Time Temp Pulse Resp B/P (MAP) Pulse Ox O2 Delivery O2 Flow Rate FiO2 04/06/21 06:00 72 20 142/69 (93) 94 Nasal Cannula 10.0 04/06/21 04:00 98.0 98.0 Physcial Exam: General: Well developed, well nourished, no acute distress, well appearing HEENT: Pupils equally round and reactive to light, EOMI, no discharge, normal conjunctiva Neck: Supple, no nuchal rigidity, no JVD, trachea midline, no tenderness Cardiac: RRR, no murmurs, no gallops, no rubs Chest/Lungs: Diminished breath sounds bilaterally, especially in the right lung garcia, bilateral wheeze throughout all lung garcia and auscultation, no respiratory distress Abdomen: soft, non-distended, no guarding, no peritoneal signs, non-tender Back: No tenderness Extremities: no edema, pulses intact, non-tender,capillary refill <3 sec bilateral upper and lower extremities, Neuro: Alert and oriented x 4, no focal deficits, normal speech Labs: Labs: Laboratory Tests Test 04/05/21 17:10 04/05/21 17:14 04/05/21 17:22 04/05/21 17:50 White Blood Count 5.6 x10^3/uL (4.0-11.0) Red Blood Count 4.68 x10^6/uL (3.50-5.40) Hemoglobin 14.5 g/dL (12.0-15.5) Hematocrit 44.1 % (36.0-47.0) Mean Corpuscular Volume 94 fL (79-100) Mean Corpuscular Hemoglobin 31 pg (25-35) Mean Corpuscular Hemoglobin Concent 33 g/dL (31-37) Red Cell Distribution Width 13.3 % (11.5-14.5) Platelet Count 247 x10^3/uL (140-400) Neutrophils (%) (Auto) 59 % (31-73) Lymphocytes (%) (Auto) 28 % (24-48) Monocytes (%) (Auto) 9 % (0-9) Eosinophils (%) (Auto) 3 % (0-3) Basophils (%) (Auto) 1 % (0-3) Neutrophils # (Auto) 3.3 x10^3/uL (1.8-7.7) Lymphocytes # (Auto) 1.6 x10^3/uL (1.0-4.8) Monocytes # (Auto) 0.5 x10^3/uL (0.0-1.1) Eosinophils # (Auto) 0.2 x10^3/uL (0.0-0.7) Basophils # (Auto) 0.1 x10^3/uL (0.0-0.2) Sodium Level 143 mmol/L (136-145) Potassium Level 5.8 mmol/L (3.5-5.1) Chloride Level 104 mmol/L (98-107) Carbon Dioxide Level 34 mmol/L (21-32) Anion Gap 5 (6-14) Blood Urea Nitrogen 32 mg/dL (7-20) Creatinine 1.7 mg/dL (0.6-1.0) Estimated GFR (Cockcroft-Gault) 29.8 BUN/Creatinine Ratio 19 (6-20) Glucose Level 222 mg/dL (70-99) Lactic Acid Level 1.9 mmol/L (0.4-2.0) Calcium Level 8.6 mg/dL (8.5-10.1) Phosphorus Level 5.0 mg/dL (2.6-4.7) Magnesium Level 1.9 mg/dL (1.8-2.4) Total Bilirubin 0.1 mg/dL (0.2-1.0) Aspartate Amino Transf (AST/SGOT) 22 U/L (15-37) Alanine Aminotransferase (ALT/SGPT) 17 U/L (14-59) Alkaline Phosphatase 115 U/L (46-116) Creatine Kinase 60 U/L (26-192) Creatine Kinase MB (Mass) 0.7 ng/mL (0.0-3.6) Creatine Kinase MB Relative Index % (0-4) Troponin I High Sensitivity 9 ng/L (4-50) NO-Yjf-D-Type Natriuretic Peptide 472 pg/mL (0-124) Total Protein 5.7 g/dL (6.4-8.2) Albumin 2.3 g/dL (3.4-5.0) Albumin/Globulin Ratio 0.7 (1.0-1.7) SARS-CoV-2 Antigen (Rapid) Negative (NEGATIVE) Urine Collection Type U cath Urine Color Yellow Urine Clarity Clear Urine pH 5.0 (<5.0-8.0) Urine Specific [place] 1.010 (1.000-1.030) Urine Protein Negative mg/dL (NEG-TRACE) Urine Glucose (UA) Negative mg/dL (NEG) Urine Ketones (Stick) Negative mg/dL (NEG) Urine Blood Negative (NEG) Urine Nitrite Negative (NEG) Urine Bilirubin Negative (NEG) Urine Urobilinogen Dipstick 0.2 mg/dL (0.2 mg/dL) Urine Leukocyte Esterase Negative (NEG) Urine RBC 1-2 /HPF (0-2) Urine WBC 1-4 /HPF (0-4) Urine Squamous Epithelial Cells Mod /LPF Urine Bacteria 0 /HPF (0-FEW) Urine Hyaline Casts Moderate /HPF O2 Saturation 89 % (92-99) Arterial Blood pH 7.40 (7.35-7.45) Arterial Blood pCO2 at Patient Temp 48 mmHg (35-46) Arterial Blood pO2 at Patient Temp 59 mmHg (65-108) Arterial Blood HCO3 29 mmol/L (21-28) Arterial Blood Base Excess 3 mmol/L (-3-3) Oxyhemoglobin 88.2 % Methemoglobin 0.4 % (0.0-1.9) Carbon Monoxide, Quantitative 0.3 % (0.0-1.9) FiO2 Nrm 12 lpm Laboratory Tests Test 04/05/21 17:10 04/05/21 17:14 04/05/21 17:22 04/05/21 17:50 White Blood Count 5.6 x10^3/uL (4.0-11.0) Red Blood Count 4.68 x10^6/uL (3.50-5.40) Hemoglobin 14.5 g/dL (12.0-15.5) Hematocrit 44.1 % (36.0-47.0) Mean Corpuscular Volume 94 fL (79-100) Mean Corpuscular Hemoglobin 31 pg (25-35) Mean Corpuscular Hemoglobin Concent 33 g/dL (31-37) Red Cell Distribution Width 13.3 % (11.5-14.5) Platelet Count 247 x10^3/uL (140-400) Neutrophils (%) (Auto) 59 % (31-73) Lymphocytes (%) (Auto) 28 % (24-48) Monocytes (%) (Auto) 9 % (0-9) Eosinophils (%) (Auto) 3 % (0-3) Basophils (%) (Auto) 1 % (0-3) Neutrophils # (Auto) 3.3 x10^3/uL (1.8-7.7) Lymphocytes # (Auto) 1.6 x10^3/uL (1.0-4.8) Monocytes # (Auto) 0.5 x10^3/uL (0.0-1.1) Eosinophils # (Auto) 0.2 x10^3/uL (0.0-0.7) Basophils # (Auto) 0.1 x10^3/uL (0.0-0.2) Sodium Level 143 mmol/L (136-145) Potassium Level 5.8 mmol/L (3.5-5.1) Chloride Level 104 mmol/L (98-107) Carbon Dioxide Level 34 mmol/L (21-32) Anion Gap 5 (6-14) Blood Urea Nitrogen 32 mg/dL (7-20) Creatinine 1.7 mg/dL (0.6-1.0) Estimated GFR (Cockcroft-Gault) 29.8 BUN/Creatinine Ratio 19 (6-20) Glucose Level 222 mg/dL (70-99) Lactic Acid Level 1.9 mmol/L (0.4-2.0) Calcium Level 8.6 mg/dL (8.5-10.1) Phosphorus Level 5.0 mg/dL (2.6-4.7) Magnesium Level 1.9 mg/dL (1.8-2.4) Total Bilirubin 0.1 mg/dL (0.2-1.0) Aspartate Amino Transf (AST/SGOT) 22 U/L (15-37) Alanine Aminotransferase (ALT/SGPT) 17 U/L (14-59) Alkaline Phosphatase 115 U/L (46-116) Creatine Kinase 60 U/L (26-192) Creatine Kinase MB (Mass) 0.7 ng/mL (0.0-3.6) Creatine Kinase MB Relative Index % (0-4) Troponin I High Sensitivity 9 ng/L (4-50) KH-Kxc-Y-Type Natriuretic Peptide 472 pg/mL (0-124) Total Protein 5.7 g/dL (6.4-8.2) Albumin 2.3 g/dL (3.4-5.0) Albumin/Globulin Ratio 0.7 (1.0-1.7) SARS-CoV-2 Antigen (Rapid) Negative (NEGATIVE) Urine Collection Type U cath Urine Color Yellow Urine Clarity Clear Urine pH 5.0 (<5.0-8.0) Urine Specific [place] 1.010 (1.000-1.030) Urine Protein Negative mg/dL (NEG-TRACE) Urine Glucose (UA) Negative mg/dL (NEG) Urine Ketones (Stick) Negative mg/dL (NEG) Urine Blood Negative (NEG) Urine Nitrite Negative (NEG) Urine Bilirubin Negative (NEG) Urine Urobilinogen Dipstick 0.2 mg/dL (0.2 mg/dL) Urine Leukocyte Esterase Negative (NEG) Urine RBC 1-2 /HPF (0-2) Urine WBC 1-4 /HPF (0-4) Urine Squamous Epithelial Cells Mod /LPF Urine Bacteria 0 /HPF (0-FEW) Urine Hyaline Casts Moderate /HPF O2 Saturation 89 % (92-99) Arterial Blood pH 7.40 (7.35-7.45) Arterial Blood pCO2 at Patient Temp 48 mmHg (35-46) Arterial Blood pO2 at Patient Temp 59 mmHg (65-108) Arterial Blood HCO3 29 mmol/L (21-28) Arterial Blood Base Excess 3 mmol/L (-3-3) Oxyhemoglobin 88.2 % Methemoglobin 0.4 % (0.0-1.9) Carbon Monoxide, Quantitative 0.3 % (0.0-1.9) FiO2 Nrm 12 lpm Images: Images PROCEDURE: CHEST AP ONLY AP chest. HISTORY: Confusion, fall AP view of the chest was compared with an old study from May 2020. Heart is normal in size. There is a large subcarinal calcified node. There is no definite effusion. There are diffuse right lung infiltrates. The pattern suggests an acute pneumonia. IMPRESSION: 1. Diffuse right lung infiltrates. PROCEDURE: CT HEAD AND CERVICAL SPINE WO CT brain without contrast, CT C-spine without contrast. HISTORY: Confusion, fall CT brain CT scan of brain was done without contrast. Comparison is made with a study from October 12, 2020. Sinuses are clear. There is no skull fracture. There is no mass effect or shift of the midline. There is diffuse atrophy. There is no intracranial hemorrhage or subdural hematoma. An acute CVA is not identified. There is mild decreased density in the periventricular white matter from chronic microvascular changes. There is been little change from the old study. IMPRESSION: 1. Diffuse atrophy. 2. No intracranial hemorrhage or acute CVA noted. End impression CT cervical spine Axial CT images were obtained through the cervical spine. Sagittal and coronal reconstructed images were reviewed. There is soft tissue opacification of the external auditory canal on the right, possibly ear wax. Patient had previous mastoid surgery on the right. A C-spine fracture is not identified. There is a soft tissue mass at the base of the neck on the right, adenopathy is possible. Ultrasound or contrast CT could be of benefit. Thyroid is homogeneous. There is facet arthritis at multiple levels in the cervical spine. There is degenerative disc disease at C5-6 and C6-7. An acute fracture is not identified. There is sli ght anterior subluxation C4 on C5. There is no focal disc protrusion. IMPRESSION: 1. Soft tissue opacification of the right external auditory canal probably related ear wax, there are changes of previous mastoid surgery on the right. 2. Possible soft tissue mass in the base the neck on the right correlation with ultrasound or contrast CT elbow. 3. Degenerative changes in the cervical spine. 4. No acute C-spine fracture. Assessment/Plan Assessment/Plan Right lower lobe pneumonia, possible aspiration and possible gram-negative organisms Acute hypoxic respiratory failure requiring BiPAP support Acute COPD exacerbation Mild hyperkalemia LINWOOD due to vasomotor nephropathy Hyperglycemia uncontrolled History of bipolar and schizoaffective disorder History of dementia History of depression anxiety History of hypertension History of pulmonary hypertension History of COPD Admit to ICU for further management Continue IV steroids Continue empiric IV antibiotics Pulmonology consult O2 and BiPAP supplementation as needed Strict I/O and monitor urine output closely Trend creatinine and potassium levels Pending blood and sputum cultures Pending Legionella urine antigen and MRSA PCR screen Heparin for DVT prophylaxis Protonix while on steroids GI prophylaxis ADA diet CODE STATUS full Discussed with RN and SW Disposition continue ICU care DPOA: Tom Connolly A total of 55 minutes of critical care time was spent in reviewing chart, labs, and images. Discussed with RN and SW. Justifications for Admission Other Justification HARJINDER BHAKTA MD Apr 06, 2021 07:49
[2021-04-06] MEDS: INSULIN LISPRO 300 UNITS/3 ML VIAL. SQ SCH ×6 (08:00→17:31)
[2021-04-06] MEDS ORDERED: ONDANSETRON PF 4 MG/2 ML VIAL. IVP PRN (08:00)
[2021-04-06] MEDS ORDERED: DEXTROSE 50% 25 GM / 50ML DISP.SYRIN. IV PRN (08:00)
[2021-04-06] MEDS ORDERED: PROCHLORPERAZINE 10 MG/2 ML VIAL. IV PRN (08:00)
[2021-04-06] MEDS ORDERED: DOCUSATE SODIUM 100 MG CAPSULE. PO PRN (08:00)
[2021-04-06] MEDS ORDERED: SIMETHICONE 80 MG TAB.CHEW PO PRN (08:15)
[2021-04-06] MEDS ORDERED: QUET150T2 PO (08:48)
[2021-04-06] MEDS ORDERED: FURO-69 PO (08:48)
[2021-04-06] MEDS ORDERED: HALO5TAB PO (08:48)
[2021-04-06] MEDS ORDERED: BUSP10TA PO (08:48)
[2021-04-06] MEDS ORDERED: POTA15TA9 PO (08:48)
[2021-04-06] MEDS ORDERED: DIVA250T PO (08:48)
[2021-04-06] MEDS ORDERED: MEMA10TA PO (08:48)
[2021-04-06] MEDS ORDERED: QUET50TA5 PO (08:48)
[2021-04-06] MEDS ORDERED: FLUO40CA9 PO (08:48)
[2021-04-06] MEDS ORDERED: CALC-56 PO (08:48)
[2021-04-06] MEDS ORDERED: AMAN100T PO (08:48)
[2021-04-06] MEDS ORDERED: INSU100I13 SQ (08:48)
[2021-04-06] MEDS ORDERED: MELA3TAB43 PO (08:48)
[2021-04-06] MEDS ORDERED: DONE10TA61 PO (08:48)
[2021-04-06] MEDS ORDERED: LORA10TA3 PO (08:48)
[2021-04-06] MEDS ORDERED: LOSA100T14 PO (08:48)
[2021-04-06] MEDS ORDERED: METO-247 PO (08:48)
[2021-04-06] MEDS ORDERED: NPH,100V SQ (08:48)
[2021-04-06] MEDS: LACTOBACILLUS RHAMNOSUS GG 1 CAPSULE. PO SCH ×2 (09:00→21:07)
[2021-04-06] MEDS: CEFEPIME HCL IV Push 1 GM VIAL. IVP SCH (09:00)
[2021-04-06] MEDS: PANTOPRAZOLE 40 MG TABLET.DR. PO SCH (09:22)
[2021-04-06] MEDS: ASPIRIN ENTERIC COATED 81 MG TABLET.DR. PO SCH (09:23)
[2021-04-06] MEDS: buPROPion XL 150 MG TAB.ER.24H. PO SCH (09:23)
[2021-04-06] MEDS: metroNIDAZOLE 500 MG TABLET PO SCH ×2 (09:23→21:07)
[2021-04-06] MEDS: methylPREDNISolone SOD SUCC PF 40 MG/ML VIAL. IV SCH ×2 (09:23→17:31)
[2021-04-06] MEDS: INSULIN GLARGINE SYRINGE. SQ SCH ×2 (09:26→21:00)
[2021-04-06] MEDS: POLYVINYL ALCOHOL 1.4% OPHTH SOLUTION 15ML BOTTLE. OU SCH ×3 (15:37→21:07)
[2021-04-06] MEDS: SENNOSIDES/DOCUSATE 8.6/50MG TABLET. PO SCH (15:38)
--- NOTE | 2021-04-06 16:36 | NUR ---
SS following for discharge planning. SS reviewed pt chart and discussed with pt RN. Pt is LTC resident from [facility] in [facility], ; fax [phone]. COVID19 negative. Pt is currently requiring oxygen at six liters nasal canula. Pt on IV Solu-Medrol. PT/OT recommended LTC placement. SS will continue to follow for discharge planning.
--- NOTE | 2021-04-06 18:17 | NUR ---
Received transfer from ICU, report received from TIFFANY Chavez. Patient resting comfortably in room.
[2021-04-06] MEDS: ACETAMINOPHEN 325 MG TABLET. PO PRN (19:16)
[2021-04-06] MEDS: MONTELUKAST SODIUM 10 MG TABLET. PO SCH (21:07)
[2021-04-07] MEDS: ACETAMINOPHEN 325 MG TABLET. PO PRN ×3 (00:56→18:54)
[2021-04-07] MEDS: methylPREDNISolone SOD SUCC PF 40 MG/ML VIAL. IV SCH ×4 (00:57→18:32)
[2021-04-07] MEDS: LORazepam 0.5 MG TABLET PO PRN ×2 (01:07→18:56)
[2021-04-07 06:06] LABS: BASO % 0 % (0-3); EOS # 0.1 x10^3/uL (0.0-0.7); EOS % 1 % (0-3); HEMATOCRIT 42.4 % (36.0-47.0); HEMOGLOBIN 13.8 g/dL (12.0-15.5); LYMPH # 0.9 x10^3/uL (1.0-4.8); LYMPH % 16 % (24-48); MEAN CORPUSCULAR HEMOGLOBIN 30 pg (25-35); MEAN CORPUSCULAR HGB CONC 33 g/dL (31-37); MEAN CORPUSCULAR VOLUME 93 fL (79-100); MONO # 0.3 x10^3/uL (0.0-1.1); MONO % 5 % (0-9); NEUT # 4.3 x10^3/uL (1.8-7.7); NEUT % 77 % (31-73); PLATELET COUNT 208 x10^3/uL (140-400); RED BLOOD COUNT 4.55 x10^6/uL (3.50-5.40); RED CELL DISTRIBUTION WIDTH 13.4 % (11.5-14.5); WHITE BLOOD COUNT 5.5 x10^3/uL (4.0-11.0)
[2021-04-07 06:22] LABS: CALCIUM 8.5 mg/dL (8.5-10.1); CREATININE 1.5 mg/dL (0.6-1.0); GFR 34.4; MAGNESIUM 1.8 mg/dL (1.8-2.4); PHOSPHORUS 2.9 mg/dL (2.6-4.7); POTASSIUM 4.4 mmol/L (3.5-5.1)
[2021-04-07 07:15] VITALS: BP 153/79
[2021-04-07] MEDS: BUDESONIDE 0.5 MG/2 ML NEBU. NEB SCH ×3 (08:30→20:48)
[2021-04-07] MEDS ORDERED: ALBUTEROL SULFATE 2.5 MG/3 ML NEBU. NEB PRN (08:30)
[2021-04-07] MEDS: IPRATRPIUM/ALBUTEROL 0.5/2.5MG 3 ML NEBU. NEB SCH ×4 (08:30→20:48)
[2021-04-07] MEDS ORDERED: guaiFENesin DM 200MG/20MG 10 ML SYRUP PO PRN (08:30)
--- NOTE | 2021-04-07 08:31 | PDOC ---
[employer] PROGRESS NOTE Date of Service DOS: DATE: 04/07/21 TIME: 08:17 Chief Complaint Chief Complaint A/P: Right lower lobe pneumonia, likely some aspiration and likely gram-negative organisms given structural lung disease with COPD Acute hypoxic respiratory failure requiring BiPAP support Acute COPD exacerbation Mild hyperkalemia LINWOOD due to vasomotor nephropathy Hyperglycemia uncontrolled History of bipolar and schizoaffective disorder History of dementia History of depression anxiety History of hypertension History of pulmonary hypertension History of COPD Bipolar, dementia, depression, schizoaffective disorder, COPD who comes into the ED due to shortness of breath and hypoxia at medical [place]. Her O2 saturation was in the 70s initially and she was put on nasal cannula and BiPAP. Her saturations improved she was found to have right lobe pneumonia infiltrate seen on chest x-ray. Patient currently denies any fevers, chest pain, abdominal pain, dysuria or hematuria. History of Present Illness History of Present Illness Ms Connolly is a 71-year-old female with past medical history of bipolar, dementia, depression, schizoaffective disorder, COPD who comes into the ED due to shortness of breath and hypoxia at medical [place]. Her O2 saturation was in the 70s initially and she was put on nasal cannula and BiPAP. Her saturations improved she was found to have right lobe pneumonia infiltrate seen on chest x- ray. Patient currently denies any fevers, chest pain, abdominal pain, dysuria or hematuria. 04/07: Seen bedside. Off BiPAP requiring 8 L/min nasal cannula to maintain saturations 91%. Still with cough not able to get any sputum up today has signi ficant wheezes and dyspnea. Complains of dry nares. She notes she has been urinating more since being admitted. She had not been urinating much prior to admission. Vitals/I&O Vitals/I&O: Vital Signs Date Time Temp Pulse Resp B/P (MAP) Pulse Ox O2 Delivery O2 Flow Rate FiO2 04/07/21 07:15 97.8 83 18 153/79 (103) 96 Nasal Cannula 6.0 97.8 I & O 04/06/21 04/06/21 04/07/21 15:00 23:00 07:00 Intake Total 410 ml 450 ml Output Total 750 ml Balance 410 ml -750 ml 450 ml Physical Exam General: Alert, Cooperative Heart: Regular rate, Normal S1, Normal S2 Lungs: Wheezing, Crackles Abdomen: Normal bowel sounds, Soft Labs Labs: Laboratory Tests Test 04/06/21 09:27 04/06/21 12:28 04/06/21 17:24 04/06/21 20:42 Glucose (Fingerstick) 265 mg/dL (70-99) 148 mg/dL (70-99) 213 mg/dL (70-99) 91 mg/dL (70-99) Test 04/07/21 04:25 04/07/21 07:16 White Blood Count 5.5 x10^3/uL (4.0-11.0) Red Blood Count 4.55 x10^6/uL (3.50-5.40) Hemoglobin 13.8 g/dL (12.0-15.5) Hematocrit 42.4 % (36.0-47.0) Mean Corpuscular Volume 93 fL (79-100) Mean Corpuscular Hemoglobin 30 pg (25-35) Mean Corpuscular Hemoglobin Concent 33 g/dL (31-37) Red Cell Distribution Width 13.4 % (11.5-14.5) Platelet Count 208 x10^3/uL (140-400) Neutrophils (%) (Auto) 77 % (31-73) Lymphocytes (%) (Auto) 16 % (24-48) Monocytes (%) (Auto) 5 % (0-9) Eosinophils (%) (Auto) 1 % (0-3) Basophils (%) (Auto) 0 % (0-3) Neutrophils # (Auto) 4.3 x10^3/uL (1.8-7.7) Lymphocytes # (Auto) 0.9 x10^3/uL (1.0-4.8) Monocytes # (Auto) 0.3 x10^3/uL (0.0-1.1) Eosinophils # (Auto) 0.1 x10^3/uL (0.0-0.7) Basophils # (Auto) 0.0 x10^3/uL (0.0-0.2) Sodium Level 135 mmol/L (136-145) Potassium Level 4.4 mmol/L (3.5-5.1) Chloride Level 99 mmol/L (98-107) Carbon Dioxide Level 27 mmol/L (21-32) Anion Gap 9 (6-14) Blood Urea Nitrogen 28 mg/dL (7-20) Creatinine 1.5 mg/dL (0.6-1.0) Estimated GFR (Cockcroft-Gault) 34.4 Glucose Level 201 mg/dL (70-99) Calcium Level 8.5 mg/dL (8.5-10.1) Phosphorus Level 2.9 mg/dL (2.6-4.7) Magnesium Level 1.8 mg/dL (1.8-2.4) Glucose (Fingerstick) 247 mg/dL (70-99) Assessment and Plan Assessmemt and Plan Problems Medical Problems: (1) Dementia Status: Acute (2) Hypoxia Status: Acute Comment Review of Relevant I have reviewed the following items myron (where applicable) has been applied. Medications: Current Medications Medications (Trade) Dose Ordered Sig/Marley Route PRN Reason Start Time Stop Time Status Last Admin Dose Admin Cefepime HCl (Maxipime) 1 gm Q24H IVP 04/06/21 09:00 04/06/21 09:00 Metronidazole (Flagyl) 500 mg Q12HR PO 04/06/21 09:00 04/06/21 21:07 Aspirin (Ecotrin) 81 mg DAILY PO 04/06/21 09:00 04/06/21 09:23 Bupropion HCl (Wellbutrin Xl) 150 mg DAILY PO 04/06/21 09:00 04/06/21 09:23 Montelukast Sodium (Singulair) 10 mg HS PO 04/06/21 21:00 04/06/21 21:07 Insulin Glargine (Lantus Syringe) 24 unit BID SQ 04/06/21 09:00 04/06/21 09:26 Methylprednisolone Sodium Succinate (SOLU-Medrol 40MG VIAL) 40 mg Q6HRS IV 04/06/21 09:00 04/09/21 08:59 04/07/21 05:23 Lactobacillus Rhamnosus (Culturelle) 1 cap BID PO 04/06/21 09:00 04/06/21 21:07 Senna/Docusate Sodium (Senna Plus) 2 tab DAILY PO 04/06/21 13:00 04/06/21 15:38 Glycerin/ Hypromellose/ Polyethylene (Artificial Tears) 2 drop QID OU 04/06/21 13:00 04/06/21 21:07 Justifications for Admission Other Justification Hypoxic respiratory failure secondary to pneumonia HUSSEIN FRANCIS MD Apr 07, 2021 08:31
[2021-04-07] MEDS: buPROPion XL 150 MG TAB.ER.24H. PO SCH (08:35)
[2021-04-07] MEDS: ASPIRIN ENTERIC COATED 81 MG TABLET.DR. PO SCH (08:35)
[2021-04-07] MEDS: metroNIDAZOLE 500 MG TABLET PO SCH ×2 (08:35→20:03)
[2021-04-07] MEDS: SENNOSIDES 8.6 MG TABLET PO PRN (08:36)
[2021-04-07] MEDS: PANTOPRAZOLE 40 MG TABLET.DR. PO SCH (08:36)
[2021-04-07] MEDS: LACTOBACILLUS RHAMNOSUS GG 1 CAPSULE. PO SCH ×2 (08:36→20:03)
[2021-04-07] MEDS: CEFEPIME HCL IV Push 1 GM VIAL. IVP SCH (08:36)
[2021-04-07] MEDS: POLYVINYL ALCOHOL 1.4% OPHTH SOLUTION 15ML BOTTLE. OU SCH ×4 (08:36→20:03)
[2021-04-07] MEDS: INSULIN LISPRO 300 UNITS/3 ML VIAL. SQ SCH ×5 (08:47→18:36)
[2021-04-07] MEDS: SENNOSIDES/DOCUSATE 8.6/50MG TABLET. PO SCH (09:00)
[2021-04-07 10:54] VITALS: BP 142/74
--- NOTE | 2021-04-07 12:43 | CONS ---
DATE OF CONSULTATION: 04/07/2021 ATTENDING PHYSICIAN: Dr. Franco. REASON FOR CONSULTATION: Hypoxia. HISTORY OF PRESENT ILLNESS: The patient is a 71-year-old female who has history of bipolar disorder, dementia, depression, schizoaffective disorder and COPD. She was brought into the hospital with dyspnea and hypoxia. Her oxygen saturation was in the 70s initially. She was placed on nasal cannula and then later on BiPAP. The patient's chest x-ray was reviewed. There were interstitial infiltrates, predominantly on the right lung. She has no fever, no cough, no chest pains. She is currently down to 6 liters of oxygen via nasal cannula. The patient received Levaquin in the Emergency Room. RN reports desaturations when oxygen is off. She is not compliant with keeping the nasal cannula on. PAST MEDICAL HISTORY: Significant for anxiety, bipolar disorder, schizoaffective disorder, dementia, depression, GERD, dyslipidemia, hypertension, Parkinson's, suspected COPD. PAST SURGICAL HISTORY: Unknown. ALLERGIES: PENICILLIN, BENZTROPINE, AND CODEINE. MEDICATIONS: Reviewed as listed in the MRAD including bronchodilators, IV steroids and antibiotic, cefepime. REVIEW OF SYSTEMS: Limited as the patient is not the best is not the best historian, but 10-point systems obtained. Pertinent positives discussed in my history of present illness, otherwise noncontributory. SOCIAL HISTORY: Former smoker, quit about 7-8 years ago. FAMILY HISTORY: Noncontributory to lungs. PHYSICAL EXAMINATION: VITAL SIGNS: Reviewed. Pulse ox 96% on 6 liters, afebrile. Blood pressure 142/74. NECK: Supple. LUNGS: With diminished breath sounds bilaterally. CARDIOVASCULAR: With a regular rate. ABDOMEN: Soft, nontender. EXTREMITIES: With no pitting edema. LABORATORY DATA: Reviewed. COVID is negative. BUN 28 and a creatinine of 1.5. ABGs with a pH of 7.40, pCO2 of 40 and a pO2 of 59 on nonrebreather mask from the . White cell count 5.5. IMPRESSION: 1. Acute hypoxic respiratory failure, suspect secondary to multifactorial etiologies and includes combination of acute exacerbation of chronic obstructive pulmonary disease, pneumonia versus congestive heart failure. 2. Abnormal chest x-ray with extensive interstitial infiltrates, mostly on the right side but minimally on the left side. Could be atypical pneumonia versus interstitial edema. 3. Underlying chronic obstructive pulmonary disease. Could be severe due to the fact that she has chronic hypercapnia. 4. Acute kidney injury. 5. No significant leukocytosis. 6. COVID negative. RECOMMENDATIONS: 1. We will continue with present nasal cannula at 6 liters. 2. We will do a noncontrast CT chest to better assess for congestive heart failure versus pneumonia. 3. Continue empiric antibiotic. 4. Monitor renal function. 5. Obtain procalcitonin level as well. 6. Continue present bronchodilators. 7. Empiric antibiotic. 8. Discussed with RN. Continue IV steroids as well. We will follow along with you. LYNETTE DR: Jared TID: [id number]
[2021-04-07] MEDS: HEPARIN for SUB-Q USE 5,000 UNIT/ML VIAL. SQ SCH ×2 (13:21→20:04)
--- NOTE | 2021-04-07 15:07 | RAD ---
EXAM: Chest CT without intravenous contrast. HISTORY: Pneumonia or congestive heart failure. TECHNIQUE: Computed tomographic images of the chest were obtained without contrast. Multiplanar refor matting was performed. *One or more of the following individualized dose reduction techniques were utilized for this examina tion: 1. Automated exposure control. 2. Adjustment of the mA and/or kV according to patient size. 3. Use of iterative reconstruction technique. COMPARISON: None. FINDINGS: The heart is normal in size. There is a small pericardial effusion. There is calcified athe rosclerotic plaque involving the aorta, aortic arch great vessels and coronary arteries. There is multifocal masslike consolidated infiltrate within the right middle and lower lobes, with rivera rrounding groundglass and nodular infiltrate throughout the remainder of the right lung and within th e left lower lobe. There is no pleural effusion or pneumothorax. There is a suspected 1.2 cm focus of cavitation associated with consolidation within the superior segment of the right lower lobe. There is lingular atelectasis or scarring. There is a right suprahilar mass likely due to conglomerat e lymphadenopathy, measuring 4.5 cm. There is additional mediastinal and right hilar lymphadenopathy. There are calcified subcarinal and right hilar granulomas. There is calcified atherosclerotic plaque involving the aorta and coronary arteries. There is no acute finding involving the upper abdomen. Th ere is no acute or suspicious osseous lesion. There is a severe chronic compression fracture of L2. IMPRESSION: 1. Multifocal masslike consolidated infiltrate within the right middle and lower lobes, the latter of which is associated with a component of cavitation. There is extensive surrounding groundglass and n odular infiltrate throughout the remainder of the right lung and left lower lobe. Follow-up to confir m resolution and exclude a persistent underlying mass. 2. Right paratracheal mass likely due to conglomerate lymphadenopathy. There is additional mediastina l and right hilar lymphadenopathy. This likely reactive given the aforementioned findings. Attention the time of follow-up to confirm resolution is recommended. 3. Small pericardial effusion. Electronically signed by: Elizabeth Dennison MD (04/07/2021 3:05 PM) [id number]
[2021-04-07 15:08] VITALS: BP 130/71
[2021-04-07 19:30] VITALS: BP 119/53
[2021-04-07] MEDS: LINEZOLID 600 MG TABLET PO SCH (20:03)
[2021-04-07] MEDS: MONTELUKAST SODIUM 10 MG TABLET. PO SCH (20:03)
[2021-04-07] MEDS: INSULIN GLARGINE SYRINGE. SQ SCH (21:00)
[2021-04-07 23:50] VITALS: BP 127/60
[2021-04-08] MEDS: methylPREDNISolone SOD SUCC PF 40 MG/ML VIAL. IV SCH ×4 (00:50→17:54)
[2021-04-08 03:51] VITALS: BP 150/73
[2021-04-08] MEDS: ACETAMINOPHEN 325 MG TABLET. PO PRN (04:00)
[2021-04-08] MEDS: LORazepam 0.5 MG TABLET PO PRN ×2 (04:00→20:09)
[2021-04-08 04:31] LABS: BASO % 0 % (0-3); EOS % 0 % (0-3); HEMATOCRIT 40.9 % (36.0-47.0); HEMOGLOBIN 13.5 g/dL (12.0-15.5); LYMPH # 0.5 x10^3/uL (1.0-4.8); LYMPH % 8 % (24-48); MEAN CORPUSCULAR HEMOGLOBIN 31 pg (25-35); MEAN CORPUSCULAR HGB CONC 33 g/dL (31-37); MEAN CORPUSCULAR VOLUME 93 fL (79-100); MONO # 0.3 x10^3/uL (0.0-1.1); MONO % 5 % (0-9); NEUT # 5.3 x10^3/uL (1.8-7.7); NEUT % 87 % (31-73); PLATELET COUNT 215 x10^3/uL (140-400); RED BLOOD COUNT 4.38 x10^6/uL (3.50-5.40); RED CELL DISTRIBUTION WIDTH 13.2 % (11.5-14.5)
[2021-04-08 04:44] LABS: CALCIUM 8.5 mg/dL (8.5-10.1); CREATININE 1.5 mg/dL (0.6-1.0); GFR 34.4; MAGNESIUM 1.9 mg/dL (1.8-2.4); POTASSIUM 4.7 mmol/L (3.5-5.1)
[2021-04-08] MEDS: PANTOPRAZOLE 40 MG TABLET.DR. PO SCH (06:14)
[2021-04-08] MEDS: HEPARIN for SUB-Q USE 5,000 UNIT/ML VIAL. SQ SCH ×3 (06:25→22:21)
[2021-04-08] MEDS: IPRATRPIUM/ALBUTEROL 0.5/2.5MG 3 ML NEBU. NEB SCH ×4 (07:38→18:23)
[2021-04-08] MEDS: BUDESONIDE 0.5 MG/2 ML NEBU. NEB SCH ×2 (07:38→18:23)
[2021-04-08] MEDS: INSULIN LISPRO 300 UNITS/3 ML VIAL. SQ SCH ×6 (08:00→17:00)
--- NOTE | 2021-04-08 08:29 | PDOC ---
[employer] PROGRESS NOTE Date of Service DOS: DATE: 04/08/21 TIME: 08:25 Chief Complaint Chief Complaint A/P: Right lower lobe pneumonia, likely some aspiration and likely gram-negative organisms given structural lung disease with COPD Acute hypoxic respiratory failure requiring BiPAP support Acute COPD exacerbation Mild hyperkalemia Hyponatremia - likely nutritional LINWOOD due to vasomotor nephropathy Hyperglycemia uncontrolled History of bipolar and schizoaffective disorder History of dementia History of depression anxiety History of hypertension History of pulmonary hypertension History of COPD Bipolar, dementia, depression, schizoaffective disorder, COPD who comes into the ED due to shortness of breath and hypoxia at [facility]. Her O2 saturation was in the 70s initially and she was put on nasal cannula and BiPAP. Her saturations improved she was found to have right lobe pneumonia infiltrate seen on chest x-ray. Patient currently denies any fevers, chest pain, abdominal pain, dysuria or hematuria. History of Present Illness History of Present Illness Ms Connolly is a 71-year-old female with past medical history of bipolar, dementia, depression, schizoaffective disorder, COPD who comes into the ED due to shortness of breath and hypoxia at [facility]. Her O2 saturation was in the 70s initially and she was put on nasal cannula and BiPAP. Her saturations improved she was found to have right lobe pneumonia infiltrate seen on chest x- ray. Patient currently denies any fevers, chest pain, abdominal pain, dysuria or hematuria. 04/07: Seen bedside. Off BiPAP requiring 8 L/min nasal cannula to maintain saturations 91%. Still with cough not able to get any sputum up today has significant wheezes and dyspnea. Complains of dry nares. She notes she has been urinating more since being admitted. She had not been urinating much prior to admission. Seen by pulmonology in consultation, CT chest with concern for cavitating pneumonia on right, changed to linezolid. 04/08: Afebrile. Still requiring 6 L/min nasal cannula O2. Cough still minimally productive at present. Still with wheezes. No nausea or vomiting. Vitals/I&O Vitals/I&O: Vital Signs Date Time Temp Pulse Resp B/P (MAP) Pulse Ox O2 Delivery O2 Flow Rate FiO2 04/08/21 07:39 91 Nasal Cannula 6.0 04/08/21 03:51 97.6 92 18 150/73 (98) 97.6 I & O 04/07/21 04/07/21 04/08/21 15:00 23:00 07:00 Intake Total 840 ml 450 ml Balance 840 ml 450 ml Physical Exam General: Alert, Cooperative Heart: Regular rate, Normal S1, Normal S2 Lungs: Wheezing, Crackles Abdomen: Normal bowel sounds, Soft Labs Labs: Laboratory Tests Test 04/07/21 11:38 04/07/21 17:03 04/08/21 03:50 Glucose (Fingerstick) 286 mg/dL (70-99) 205 mg/dL (70-99) White Blood Count 6.0 x10^3/uL (4.0-11.0) Red Blood Count 4.38 x10^6/uL (3.50-5.40) Hemoglobin 13.5 g/dL (12.0-15.5) Hematocrit 40.9 % (36.0-47.0) Mean Corpuscular Volume 93 fL (79-100) Mean Corpuscular Hemoglobin 31 pg (25-35) Mean Corpuscular Hemoglobin Concent 33 g/dL (31-37) Red Cell Distribution Width 13.2 % (11.5-14.5) Platelet Count 215 x10^3/uL (140-400) Neutrophils (%) (Auto) 87 % (31-73) Lymphocytes (%) (Auto) 8 % (24-48) Monocytes (%) (Auto) 5 % (0-9) Eosinophils (%) (Auto) 0 % (0-3) Basophils (%) (Auto) 0 % (0-3) Neutrophils # (Auto) 5.3 x10^3/uL (1.8-7.7) Lymphocytes # (Auto) 0.5 x10^3/uL (1.0-4.8) Monocytes # (Auto) 0.3 x10^3/uL (0.0-1.1) Eosinophils # (Auto) 0.0 x10^3/uL (0.0-0.7) Basophils # (Auto) 0.0 x10^3/uL (0.0-0.2) Sodium Level 133 mmol/L (136-145) Potassium Level 4.7 mmol/L (3.5-5.1) Chloride Level 98 mmol/L (98-107) Carbon Dioxide Level 26 mmol/L (21-32) Anion Gap 9 (6-14) Blood Urea Nitrogen 26 mg/dL (7-20) Creatinine 1.5 mg/dL (0.6-1.0) Estimated GFR (Cockcroft-Gault) 34.4 Glucose Level 353 mg/dL (70-99) Calcium Level 8.5 mg/dL (8.5-10.1) Magnesium Level 1.9 mg/dL (1.8-2.4) Assessment and Plan Assessmemt and Plan Problems Medical Problems: (1) Dementia Status: Acute (2) Hypoxia Status: Acute Comment Review of Relevant I have reviewed the following items myron (where applicable) has been applied. Medications: Current Medications Medications (Trade) Dose Ordered Sig/Marley Route PRN Reason Start Time Stop Time Status Last Admin Dose Admin Insulin Human Lispro (HumaLOG) 5 units TIDWMEALS SQ 04/07/21 12:00 04/07/21 18:36 Albuterol/ Ipratropium (Duoneb) 3 ml RTQID [facility] [place] 04/07/21 08:30 04/08/21 07:38 Budesonide (Pulmicort) 0.5 mg RTBID [facility] 04/07/21 08:30 04/08/21 07:38 Heparin Sodium (Porcine) (Heparin Sodium) 5,000 unit Q8HRS SQ 04/07/21 14:00 04/08/21 06:25 Linezolid (Zyvox) 600 mg BID PO 04/07/21 21:00 04/07/21 20:03 Justifications for Admission Other Justification Hypoxic respiratory failure secondary to pneumonia HUSSEIN FRANCIS MD Apr 08, 2021 08:29
[2021-04-08] MEDS: POLYVINYL ALCOHOL 1.4% OPHTH SOLUTION 15ML BOTTLE. OU SCH ×4 (09:00→20:09)
[2021-04-08] MEDS: metroNIDAZOLE 500 MG TABLET PO SCH ×2 (11:44→20:09)
[2021-04-08] MEDS: buPROPion XL 150 MG TAB.ER.24H. PO SCH (11:44)
[2021-04-08] MEDS: ASPIRIN ENTERIC COATED 81 MG TABLET.DR. PO SCH (11:45)
[2021-04-08] MEDS: LINEZOLID 600 MG TABLET PO SCH ×2 (11:45→20:09)
[2021-04-08] MEDS: LACTOBACILLUS RHAMNOSUS GG 1 CAPSULE. PO SCH ×2 (11:45→20:09)
[2021-04-08] MEDS: CEFEPIME HCL IV Push 1 GM VIAL. IVP SCH (11:45)
[2021-04-08] MEDS: SENNOSIDES/DOCUSATE 8.6/50MG TABLET. PO SCH (11:47)
--- NOTE | 2021-04-08 12:06 | PDOC ---
PULMONARY PROGRESS NOTES DATE: 04/08/21 TIME: 12:03 Subjective Patient sleepy this morning. She did receive benzodiazepine last night. Remains on nasal cannula at 6 L. Vitals Vital Signs Date Time Temp Pulse Resp B/P (MAP) Pulse Ox O2 Delivery O2 Flow Rate FiO2 04/08/21 11:23 Nasal Cannula 6.0 04/08/21 07:39 91 04/08/21 03:51 97.6 92 18 150/73 (98) 97.6 General: Lethargic Lungs: Other (Decreased breath sounds on right side, few crackles.) Cardiovascular: S1, S2 Abdomen: Soft Extremities: No Edema Skin: Warm Labs Laboratory Tests Test 04/06/21 12:28 04/06/21 15:30 04/06/21 17:24 04/06/21 20:42 Glucose (Fingerstick) 148 mg/dL (70-99) 213 mg/dL (70-99) 91 mg/dL (70-99) Nasal Screen MRSA (PCR) Negative (NEGATIVE) Test 04/07/21 04:25 04/07/21 07:16 04/07/21 11:38 04/07/21 17:03 White Blood Count 5.5 x10^3/uL (4.0-11.0) Red Blood Count 4.55 x10^6/uL (3.50-5.40) Hemoglobin 13.8 g/dL (12.0-15.5) Hematocrit 42.4 % (36.0-47.0) Mean Corpuscular Volume 93 fL (79-100) Mean Corpuscular Hemoglobin 30 pg (25-35) Mean Corpuscular Hemoglobin Concent 33 g/dL (31-37) Red Cell Distribution Width 13.4 % (11.5-14.5) Platelet Count 208 x10^3/uL (140-400) Neutrophils (%) (Auto) 77 % (31-73) Lymphocytes (%) (Auto) 16 % (24-48) Monocytes (%) (Auto) 5 % (0-9) Eosinophils (%) (Auto) 1 % (0-3) Basophils (%) (Auto) 0 % (0-3) Neutrophils # (Auto) 4.3 x10^3/uL (1.8-7.7) Lymphocytes # (Auto) 0.9 x10^3/uL (1.0-4.8) Monocytes # (Auto) 0.3 x10^3/uL (0.0-1.1) Eosinophils # (Auto) 0.1 x10^3/uL (0.0-0.7) Basophils # (Auto) 0.0 x10^3/uL (0.0-0.2) Sodium Level 135 mmol/L (136-145) Potassium Level 4.4 mmol/L (3.5-5.1) Chloride Level 99 mmol/L (98-107) Carbon Dioxide Level 27 mmol/L (21-32) Anion Gap 9 (6-14) Blood Urea Nitrogen 28 mg/dL (7-20) Creatinine 1.5 mg/dL (0.6-1.0) Estimated GFR (Cockcroft-Gault) 34.4 Glucose Level 201 mg/dL (70-99) Calcium Level 8.5 mg/dL (8.5-10.1) Phosphorus Level 2.9 mg/dL (2.6-4.7) Magnesium Level 1.8 mg/dL (1.8-2.4) Procalcitonin < 0.10 ng/mL (0.00-0.10) Glucose (Fingerstick) 247 mg/dL (70-99) 286 mg/dL (70-99) 205 mg/dL (70-99) Test 04/08/21 03:50 04/08/21 11:08 White Blood Count 6.0 x10^3/uL (4.0-11.0) Red Blood Count 4.38 x10^6/uL (3.50-5.40) Hemoglobin 13.5 g/dL (12.0-15.5) Hematocrit 40.9 % (36.0-47.0) Mean Corpuscular Volume 93 fL (79-100) Mean Corpuscular Hemoglobin 31 pg (25-35) Mean Corpuscular Hemoglobin Concent 33 g/dL (31-37) Red Cell Distribution Width 13.2 % (11.5-14.5) Platelet Count 215 x10^3/uL (140-400) Neutrophils (%) (Auto) 87 % (31-73) Lymphocytes (%) (Auto) 8 % (24-48) Monocytes (%) (Auto) 5 % (0-9) Eosinophils (%) (Auto) 0 % (0-3) Basophils (%) (Auto) 0 % (0-3) Neutrophils # (Auto) 5.3 x10^3/uL (1.8-7.7) Lymphocytes # (Auto) 0.5 x10^3/uL (1.0-4.8) Monocytes # (Auto) 0.3 x10^3/uL (0.0-1.1) Eosinophils # (Auto) 0.0 x10^3/uL (0.0-0.7) Basophils # (Auto) 0.0 x10^3/uL (0.0-0.2) Sodium Level 133 mmol/L (136-145) Potassium Level 4.7 mmol/L (3.5-5.1) Chloride Level 98 mmol/L (98-107) Carbon Dioxide Level 26 mmol/L (21-32) Anion Gap 9 (6-14) Blood Urea Nitrogen 26 mg/dL (7-20) Creatinine 1.5 mg/dL (0.6-1.0) Estimated GFR (Cockcroft-Gault) 34.4 Glucose Level 353 mg/dL (70-99) Calcium Level 8.5 mg/dL (8.5-10.1) Magnesium Level 1.9 mg/dL (1.8-2.4) Glucose (Fingerstick) 376 mg/dL (70-99) Laboratory Tests Test 04/07/21 17:03 04/08/21 03:50 04/08/21 11:08 Glucose (Fingerstick) 205 mg/dL (70-99) 376 mg/dL (70-99) White Blood Count 6.0 x10^3/uL (4.0-11.0) Red Blood Count 4.38 x10^6/uL (3.50-5.40) Hemoglobin 13.5 g/dL (12.0-15.5) Hematocrit 40.9 % (36.0-47.0) Mean Corpuscular Volume 93 fL (79-100) Mean Corpuscular Hemoglobin 31 pg (25-35) Mean Corpuscular Hemoglobin Concent 33 g/dL (31-37) Red Cell Distribution Width 13.2 % (11.5-14.5) Platelet Count 215 x10^3/uL (140-400) Neutrophils (%) (Auto) 87 % (31-73) Lymphocytes (%) (Auto) 8 % (24-48) Monocytes (%) (Auto) 5 % (0-9) Eosinophils (%) (Auto) 0 % (0-3) Basophils (%) (Auto) 0 % (0-3) Neutrophils # (Auto) 5.3 x10^3/uL (1.8-7.7) Lymphocytes # (Auto) 0.5 x10^3/uL (1.0-4.8) Monocytes # (Auto) 0.3 x10^3/uL (0.0-1.1) Eosinophils # (Auto) 0.0 x10^3/uL (0.0-0.7) Basophils # (Auto) 0.0 x10^3/uL (0.0-0.2) Sodium Level 133 mmol/L (136-145) Potassium Level 4.7 mmol/L (3.5-5.1) Chloride Level 98 mmol/L (98-107) Carbon Dioxide Level 26 mmol/L (21-32) Anion Gap 9 (6-14) Blood Urea Nitrogen 26 mg/dL (7-20) Creatinine 1.5 mg/dL (0.6-1.0) Estimated GFR (Cockcroft-Gault) 34.4 Glucose Level 353 mg/dL (70-99) Calcium Level 8.5 mg/dL (8.5-10.1) Magnesium Level 1.9 mg/dL (1.8-2.4) Medications Active Scripts Medications Dose Route/Sig Max Daily Dose Days Date Category Dose Instructions Seroquel Xr (Quetiapine Fumarate) 150 Mg Tab.er.24h 1 Tab PO QHS 04/06/21 Reported Seroquel (Quetiapine Fumarate) 50 Mg Tablet 50 Mg PO BID 04/06/21 Reported Prozac (Fluoxetine Hcl) 40 Mg Capsule 40 Mg PO HS 04/06/21 Reported Potassium Citrate Er (Potassium Citrate) 15 Meq Tablet.er 20 Meq PO DAILY 04/06/21 Reported Calcium 500 + Vit D 200 Caplet (Calcium Carbonate/Vitamin D3) 1 Each Tablet 1 Each PO DAILY 04/06/21 Reported Namenda (Memantine Hcl) 10 Mg Tablet 10 Mg PO BID 04/06/21 Reported Metoprolol Succinate ( Xl ) (Metoprolol Succinate) 100 Mg Tab.er.24h 50 Mg PO DAILY 04/06/21 Reported Melatonin 3 Mg Tab.rapdis 1 Tab PO QHS 30 04/06/21 Reported Losartan Potassium 100 Mg Tablet 100 Mg PO DAILY 04/06/21 Reported Humulin N (Nph, Human Insulin Isophane) 100 Unit/1 Ml Vial 8 Unit SQ BID 04/06/21 Reported Lantus Solostar (Insulin Glargine,Hum.rec.anlog) 100 Unit/1 Ml Insuln.pen 20 Unit SQ QHS 04/06/21 Reported Loratadine 10 Mg Tablet 1 Tab PO DAILY 04/06/21 Reported Lasix (Furosemide) 20 Mg Tablet 20 Mg PO DAILY 04/06/21 Reported Haloperidol 5 Mg Tablet 7.5 Mg PO HS 04/06/21 Reported Depakote Er (Divalproex Sodium) 250 Mg Tab.er.24h 1 Tab PO QHS 04/06/21 Reported Buspirone Hcl 10 Mg Tablet 1 Tab PO BID 04/06/21 Reported Aricept (Donepezil Hcl) 10 Mg Tablet 10 Mg PO HS 04/06/21 Reported Amantadine (Amantadine Hcl) 100 Mg Tablet 50 Mg PO BID 04/06/21 Reported Senna-Time S Tablet (Sennosides/Docusate Sodium) 1 Each Tablet 2 Tab PO DAILY10 09/22/16 Rx Take by mouth 2 tablets daily Novolog Flexpen (Insulin Aspart) 100 Unit/1 Ml Insuln.pen 0-12 Unit SQ TIDAC 09/20/16 Rx inject subq tid ac: 101-150=2unit, 151-200=3 unit, 201-250=4 unit, 251-300=6 unit, 301-350=8 unit, 351-400=10 unit >401 call Novolog Flexpen (Insulin Aspart) 100 Unit/1 Ml Insuln.pen 12 Units SQ TIDAC 09/20/16 Rx Inject 12 units tid ac Tylenol Extra Strength (Acetaminophen) 500 Mg Tablet 1,000 Mg PO Q8HRS PRN 09/18/16 Reported Glucagon Emergency Kit (Glucagon,Human Recombinant) 1 Mg Kit 1 Mg IM PRN 09/18/16 Reported Flonase Allergy Relief (Fluticasone Propionate) 9.9 Ml [place].susp 2 Sprays NS DAILY 09/18/16 Reported Breo Ellipta 100-25 Mcg Inh (Fluticasone/Vilanterol) 1 Each Aer.pow.ba 1 Puff IH DAILY 09/18/16 Reported Biofreeze (Menthol) 118 Ml Gel..ml. 118 Ml TP PRN PRN 09/18/16 Reported lower back and right shoulder Artificial Tears Eye Drops (Dextran 70/Hypromellose) 15 Ml Drops 2 Drop EACHEYE QID 09/18/16 Reported Wellbutrin Xl (Bupropion Hcl) 150 Mg Tab.er.24h 1 Tab PO DAILY 09/27/14 Reported Vaseline White Petroleum (Petrolatum,White) 5 Gm Oint.pack 1 Gm TP HS 09/27/14 Reported Spiriva (Tiotropium [place]) 18 Mcg Cap.w.dev 1 Cap IH DAILY 09/27/14 Reported Simvastatin 20 Mg Tablet 20 Mg PO HS 09/27/14 Reported Isopto Tears (Hypromellose) 15 Ml Drops 15 Ml OP PRN Q6HRS PRN 09/27/14 Reported Glucose Gel (Dextrose) 38 Gm Gel..gram. 38 Gm PO PRN PRN 09/27/14 Reported Cyanocobalamin Injection (Cyanocobalamin (Vitamin B-12)) 1,000 Mcg/1 Ml Vial 1 Ml IM QMONTH 09/27/14 Reported Aspirin Ec (Aspirin) 81 Mg Tablet.dr 1 Tab PO DAILY 09/27/14 Reported Proair Hfa Inhaler (Albuterol Sulfate) 8.5 Gm Hfa.aer.ad 2 Puff IH PRN Q6HRS PRN 09/27/[address] chest IMPRESSION: 1. Multifocal masslike consolidated infiltrate within the right middle and lower lobes, the latter of which is associated with a component of cavitation. There is extensive surrounding groundglass and nodular infiltrate throughout the remainder of the right lung and left lower lobe. Follow-up to confirm resolution and exclude a persistent underlying mass. 2. Right paratracheal mass likely due to conglomerate lymphadenopathy. There is additional mediastinal and right hilar lymphadenopathy. This likely reactive given the aforementioned findings. Attention the time of follow-up to confirm resolution is recommended. 3. Small pericardial effusion. Electronically signed by: Elizabeth Dennison MD (04/07/2021 3:05 PM) [id number] Impression . 1. Acute hypoxic respiratory failure, suspect secondary to multifactorial etiologies and includes combination of acute exacerbation of chronic obstructive pulmonary disease and extensive pneumonia. 2. Abnormal CT chest with extensive pneumonia right lung. There is masslike consolidation in the right middle lobe. There is mild cavitation in the right lower lobe. There is associated right paratracheal adenopathy. 3. Underlying chronic obstructive pulmonary disease. Could be severe due to the fact that she has chronic hypercapnia. 4. Acute kidney injury. 5. No significant leukocytosis. 6. COVID negative. Plan . RECOMMENDATIONS: 1. We will continue with present nasal cannula at [address] chest reviewed as discussed above. 3. Continue empiric antibiotic. The coverage was broadened last night. Zyvox was added to cefepime. 4. Monitor renal function. 5. Monitor chest x-rays in next few days. 6. Continue present bronchodilators. 7. Empiric antibiotic. 8. Discussed with RN. Continue IV steroids as well. We will follow along with you. PRASHANTH DURAN MD Apr 08, 2021 12:06
[2021-04-08 19:55] VITALS: BP 102/48
[2021-04-08] MEDS: MONTELUKAST SODIUM 10 MG TABLET. PO SCH (20:09)
--- NOTE | 2021-04-08 20:10 | NUR ---
Patient restless and stating she wants to "Go to sleep." PO HS medications given.
[2021-04-08] MEDS: INSULIN GLARGINE SYRINGE. SQ SCH (21:02)
[2021-04-08] MEDS ORDERED: INSULIN LISPRO 300 UNITS/3 ML VIAL. SQ ONE (22:00)
[2021-04-08 22:30] VITALS: BP 126/72
[2021-04-09] MEDS: methylPREDNISolone SOD SUCC PF 40 MG/ML VIAL. IV SCH ×2 (00:26→06:28)
[2021-04-09 03:15] VITALS: BP 144/62
[2021-04-09 04:49] LABS: BASO % 0 % (0-3); EOS % 0 % (0-3); HEMATOCRIT 40.9 % (36.0-47.0); HEMOGLOBIN 13.5 g/dL (12.0-15.5); LYMPH # 0.7 x10^3/uL (1.0-4.8); LYMPH % 9 % (24-48); MEAN CORPUSCULAR HEMOGLOBIN 30 pg (25-35); MEAN CORPUSCULAR HGB CONC 33 g/dL (31-37); MEAN CORPUSCULAR VOLUME 92 fL (79-100); MONO # 0.6 x10^3/uL (0.0-1.1); MONO % 8 % (0-9); NEUT # 6.6 x10^3/uL (1.8-7.7); NEUT % 84 % (31-73); PLATELET COUNT 239 x10^3/uL (140-400); RED BLOOD COUNT 4.43 x10^6/uL (3.50-5.40); RED CELL DISTRIBUTION WIDTH 13.2 % (11.5-14.5); WHITE BLOOD COUNT 7.9 x10^3/uL (4.0-11.0)
[2021-04-09 05:14] LABS: CALCIUM 8.7 mg/dL (8.5-10.1); CREATININE 1.2 mg/dL (0.6-1.0); GFR 44.5; MAGNESIUM 1.9 mg/dL (1.8-2.4); POTASSIUM 4.3 mmol/L (3.5-5.1)
[2021-04-09] MEDS: HEPARIN for SUB-Q USE 5,000 UNIT/ML VIAL. SQ SCH ×3 (06:31→22:32)
[2021-04-09 07:00] VITALS: BP_SYST 154; BP_SYST 159; BP_DIAS 71; BP_DIAS 76
[2021-04-09] MEDS: IPRATRPIUM/ALBUTEROL 0.5/2.5MG 3 ML NEBU. NEB SCH ×4 (07:57→20:06)
[2021-04-09] MEDS: BUDESONIDE 0.5 MG/2 ML NEBU. NEB SCH ×2 (07:57→20:06)
[2021-04-09] MEDS: SENNOSIDES/DOCUSATE 8.6/50MG TABLET. PO SCH (08:45)
[2021-04-09] MEDS: CEFEPIME HCL IV Push 1 GM VIAL. IVP SCH (08:45)
[2021-04-09] MEDS: buPROPion XL 150 MG TAB.ER.24H. PO SCH (08:45)
[2021-04-09] MEDS: metroNIDAZOLE 500 MG TABLET PO SCH ×2 (08:45→21:18)
[2021-04-09] MEDS: POLYVINYL ALCOHOL 1.4% OPHTH SOLUTION 15ML BOTTLE. OU SCH ×4 (08:45→21:19)
[2021-04-09] MEDS: LACTOBACILLUS RHAMNOSUS GG 1 CAPSULE. PO SCH ×2 (08:45→21:19)
[2021-04-09] MEDS: ASPIRIN ENTERIC COATED 81 MG TABLET.DR. PO SCH (08:45)
[2021-04-09] MEDS: LINEZOLID 600 MG TABLET PO SCH ×2 (08:45→21:18)
[2021-04-09] MEDS: PANTOPRAZOLE 40 MG TABLET.DR. PO SCH (08:45)
[2021-04-09] MEDS: INSULIN LISPRO 300 UNITS/3 ML VIAL. SQ SCH ×6 (09:03→17:00)
--- NOTE | 2021-04-09 10:33 | PDOC ---
PULMONARY PROGRESS NOTES DATE: 04/09/21 TIME: 10:32 Subjective Patient denies any shortness of breath. Remains on nasal cannula at 6 L. Vitals Vital Signs Date Time Temp Pulse Resp B/P (MAP) Pulse Ox O2 Delivery O2 Flow Rate FiO2 04/09/21 08:01 93 Nasal Cannula 6.0 04/09/21 07:00 98.3 83 16 154/71 (98) 98.3 General: Alert Lungs: Other (Decreased breath sounds on right side, few crackles.) Cardiovascular: S1, S2 Abdomen: Soft Extremities: No Edema Skin: Warm Labs Laboratory Tests Test 04/07/21 11:38 04/07/21 17:03 04/08/21 03:50 04/08/21 11:08 Glucose (Fingerstick) 286 mg/dL (70-99) 205 mg/dL (70-99) 376 mg/dL (70-99) White Blood Count 6.0 x10^3/uL (4.0-11.0) Red Blood Count 4.38 x10^6/uL (3.50-5.40) Hemoglobin 13.5 g/dL (12.0-15.5) Hematocrit 40.9 % (36.0-47.0) Mean Corpuscular Volume 93 fL (79-100) Mean Corpuscular Hemoglobin 31 pg (25-35) Mean Corpuscular Hemoglobin Concent 33 g/dL (31-37) Red Cell Distribution Width 13.2 % (11.5-14.5) Platelet Count 215 x10^3/uL (140-400) Neutrophils (%) (Auto) 87 % (31-73) Lymphocytes (%) (Auto) 8 % (24-48) Monocytes (%) (Auto) 5 % (0-9) Eosinophils (%) (Auto) 0 % (0-3) Basophils (%) (Auto) 0 % (0-3) Neutrophils # (Auto) 5.3 x10^3/uL (1.8-7.7) Lymphocytes # (Auto) 0.5 x10^3/uL (1.0-4.8) Monocytes # (Auto) 0.3 x10^3/uL (0.0-1.1) Eosinophils # (Auto) 0.0 x10^3/uL (0.0-0.7) Basophils # (Auto) 0.0 x10^3/uL (0.0-0.2) Sodium Level 133 mmol/L (136-145) Potassium Level 4.7 mmol/L (3.5-5.1) Chloride Level 98 mmol/L (98-107) Carbon Dioxide Level 26 mmol/L (21-32) Anion Gap 9 (6-14) Blood Urea Nitrogen 26 mg/dL (7-20) Creatinine 1.5 mg/dL (0.6-1.0) Estimated GFR (Cockcroft-Gault) 34.4 Glucose Level 353 mg/dL (70-99) Calcium Level 8.5 mg/dL (8.5-10.1) Magnesium Level 1.9 mg/dL (1.8-2.4) Test 04/08/21 18:16 04/08/21 21:01 04/09/21 04:30 04/09/21 07:45 Glucose (Fingerstick) 309 mg/dL (70-99) 361 mg/dL (70-99) 207 mg/dL (70-99) White Blood Count 7.9 x10^3/uL (4.0-11.0) Red Blood Count 4.43 x10^6/uL (3.50-5.40) Hemoglobin 13.5 g/dL (12.0-15.5) Hematocrit 40.9 % (36.0-47.0) Mean Corpuscular Volume 92 fL (79-100) Mean Corpuscular Hemoglobin 30 pg (25-35) Mean Corpuscular Hemoglobin Concent 33 g/dL (31-37) Red Cell Distribution Width 13.2 % (11.5-14.5) Platelet Count 239 x10^3/uL (140-400) Neutrophils (%) (Auto) 84 % (31-73) Lymphocytes (%) (Auto) 9 % (24-48) Monocytes (%) (Auto) 8 % (0-9) Eosinophils (%) (Auto) 0 % (0-3) Basophils (%) (Auto) 0 % (0-3) Neutrophils # (Auto) 6.6 x10^3/uL (1.8-7.7) Lymphocytes # (Auto) 0.7 x10^3/uL (1.0-4.8) Monocytes # (Auto) 0.6 x10^3/uL (0.0-1.1) Eosinophils # (Auto) 0.0 x10^3/uL (0.0-0.7) Basophils # (Auto) 0.0 x10^3/uL (0.0-0.2) Sodium Level 138 mmol/L (136-145) Potassium Level 4.3 mmol/L (3.5-5.1) Chloride Level 102 mmol/L (98-107) Carbon Dioxide Level 28 mmol/L (21-32) Anion Gap 8 (6-14) Blood Urea Nitrogen 30 mg/dL (7-20) Creatinine 1.2 mg/dL (0.6-1.0) Estimated GFR (Cockcroft-Gault) 44.5 Glucose Level 156 mg/dL (70-99) Calcium Level 8.7 mg/dL (8.5-10.1) Magnesium Level 1.9 mg/dL (1.8-2.4) Laboratory Tests Test 04/08/21 11:08 04/08/21 18:16 04/08/21 21:01 04/09/21 04:30 Glucose (Fingerstick) 376 mg/dL (70-99) 309 mg/dL (70-99) 361 mg/dL (70-99) White Blood Count 7.9 x10^3/uL (4.0-11.0) Red Blood Count 4.43 x10^6/uL (3.50-5.40) Hemoglobin 13.5 g/dL (12.0-15.5) Hematocrit 40.9 % (36.0-47.0) Mean Corpuscular Volume 92 fL (79-100) Mean Corpuscular Hemoglobin 30 pg (25-35) Mean Corpuscular Hemoglobin Concent 33 g/dL (31-37) Red Cell Distribution Width 13.2 % (11.5-14.5) Platelet Count 239 x10^3/uL (140-400) Neutrophils (%) (Auto) 84 % (31-73) Lymphocytes (%) (Auto) 9 % (24-48) Monocytes (%) (Auto) 8 % (0-9) Eosinophils (%) (Auto) 0 % (0-3) Basophils (%) (Auto) 0 % (0-3) Neutrophils # (Auto) 6.6 x10^3/uL (1.8-7.7) Lymphocytes # (Auto) 0.7 x10^3/uL (1.0-4.8) Monocytes # (Auto) 0.6 x10^3/uL (0.0-1.1) Eosinophils # (Auto) 0.0 x10^3/uL (0.0-0.7) Basophils # (Auto) 0.0 x10^3/uL (0.0-0.2) Sodium Level 138 mmol/L (136-145) Potassium Level 4.3 mmol/L (3.5-5.1) Chloride Level 102 mmol/L (98-107) Carbon Dioxide Level 28 mmol/L (21-32) Anion Gap 8 (6-14) Blood Urea Nitrogen 30 mg/dL (7-20) Creatinine 1.2 mg/dL (0.6-1.0) Estimated GFR (Cockcroft-Gault) 44.5 Glucose Level 156 mg/dL (70-99) Calcium Level 8.7 mg/dL (8.5-10.1) Magnesium Level 1.9 mg/dL (1.8-2.4) Test 04/09/21 07:45 Glucose (Fingerstick) 207 mg/dL (70-99) Medications Active Scripts Medications Dose Route/Sig Max Daily Dose Days Date Category Dose Instructions Seroquel Xr (Quetiapine Fumarate) 150 Mg Tab.er.24h 1 Tab PO QHS 04/06/21 Reported Seroquel (Quetiapine Fumarate) 50 Mg Tablet 50 Mg PO BID 04/06/21 Reported Prozac (Fluoxetine Hcl) 40 Mg Capsule 40 Mg PO HS 04/06/21 Reported Potassium Citrate Er (Potassium Citrate) 15 Meq Tablet.er 20 Meq PO DAILY 04/06/21 Reported Calcium 500 + Vit D 200 Caplet (Calcium Carbonate/Vitamin D3) 1 Each Tablet 1 Each PO DAILY 04/06/21 Reported Namenda (Memantine Hcl) 10 Mg Tablet 10 Mg PO BID 04/06/21 Reported Metoprolol Succinate ( Xl ) (Metoprolol Succinate) 100 Mg Tab.er.24h 50 Mg PO DAILY 04/06/21 Reported Melatonin 3 Mg Tab.rapdis 1 Tab PO QHS 30 04/06/21 Reported Losartan Potassium 100 Mg Tablet 100 Mg PO DAILY 04/06/21 Reported Humulin N (Nph, Human Insulin Isophane) 100 Unit/1 Ml Vial 8 Unit SQ BID 04/06/21 Reported Lantus Solostar (Insulin Glargine,Hum.rec.anlog) 100 Unit/1 Ml Insuln.pen 20 Unit SQ QHS 04/06/21 Reported Loratadine 10 Mg Tablet 1 Tab PO DAILY 04/06/21 Reported Lasix (Furosemide) 20 Mg Tablet 20 Mg PO DAILY 04/06/21 Reported Haloperidol 5 Mg Tablet 7.5 Mg PO HS 04/06/21 Reported Depakote Er (Divalproex Sodium) 250 Mg Tab.er.24h 1 Tab PO QHS 04/06/21 Reported Buspirone Hcl 10 Mg Tablet 1 Tab PO BID 04/06/21 Reported Aricept (Donepezil Hcl) 10 Mg Tablet 10 Mg PO HS 04/06/21 Reported Amantadine (Amantadine Hcl) 100 Mg Tablet 50 Mg PO BID 04/06/21 Reported Senna-Time S Tablet (Sennosides/Docusate Sodium) 1 Each Tablet 2 Tab PO DAILY10 09/22/16 Rx Take by mouth 2 tablets daily Novolog Flexpen (Insulin Aspart) 100 Unit/1 Ml Insuln.pen 0-12 Unit SQ TIDAC 09/20/16 Rx inject subq tid ac: 101-150=2unit, 151-200=3 unit, 201-250=4 unit, 251-300=6 unit, 301-350=8 unit, 351-400=10 unit >401 call Novolog Flexpen (Insulin Aspart) 100 Unit/1 Ml Insuln.pen 12 Units SQ TIDAC 09/20/16 Rx Inject 12 units tid ac Tylenol Extra Strength (Acetaminophen) 500 Mg Tablet 1,000 Mg PO Q8HRS PRN 09/18/16 Reported Glucagon Emergency Kit (Glucagon,Human Recombinant) 1 Mg Kit 1 Mg IM PRN 09/18/16 Reported Flonase Allergy Relief (Fluticasone Propionate) 9.9 Ml [place]iseco.susp 2 Sprays NS DAILY 09/18/16 Reported Breo Ellipta 100-25 Mcg Inh (Fluticasone/Vilanterol) 1 Each Aer.pow.ba 1 Puff IH DAILY 09/18/16 Reported Biofreeze (Menthol) 118 Ml Gel..ml. 118 Ml TP PRN PRN 09/18/16 Reported lower back and right shoulder Artificial Tears Eye Drops (Dextran 70/Hypromellose) 15 Ml Drops 2 Drop EACHEYE QID 09/18/16 Reported Wellbutrin Xl (Bupropion Hcl) 150 Mg Tab.er.24h 1 Tab PO DAILY 09/27/14 Reported Vaseline White Petroleum (Petrolatum,White) 5 Gm Oint.pack 1 Gm TP HS 09/27/14 Reported Spiriva (Tiotropium [place]) 18 Mcg Cap.w.dev 1 Cap IH DAILY 09/27/14 Reported Simvastatin 20 Mg Tablet 20 Mg PO HS 09/27/14 Reported Isopto Tears (Hypromellose) 15 Ml Drops 15 Ml OP PRN Q6HRS PRN 09/27/14 Reported Glucose Gel (Dextrose) 38 Gm Gel..gram. 38 Gm PO PRN PRN 09/27/14 Reported Cyanocobalamin Injection (Cyanocobalamin (Vitamin B-12)) 1,000 Mcg/1 Ml Vial 1 Ml IM QMONTH 09/27/14 Reported Aspirin Ec (Aspirin) 81 Mg Tablet.dr 1 Tab PO DAILY 09/27/14 Reported Proair Hfa Inhaler (Albuterol Sulfate) 8.5 Gm Hfa.aer.ad 2 Puff IH PRN Q6HRS PRN 09/27/[address] chest IMPRESSION: 1. Multifocal masslike consolidated infiltrate within the right middle and lower lobes, the latter of which is associated with a component of cavitation. There is extensive surrounding groundglass and nodular infiltrate throughout the remainder of the right lung and left lower lobe. Follow-up to confirm resolution and exclude a persistent underlying mass. 2. Right paratracheal mass likely due to conglomerate lymphadenopathy. There is additional mediastinal and right hilar lymphadenopathy. This likely reactive given the aforementioned findings. Attention the time of follow-up to confirm resolution is recommended. 3. Small pericardial effusion. Electronically signed by: Elizabeth Dennison MD (04/07/2021 3:05 PM) [id number] Impression . 1. Acute hypoxic respiratory failure, suspect secondary to multifactorial etiologies and includes combination of acute exacerbation of chronic obstructive pulmonary disease and extensive pneumonia. 2. Abnormal CT chest with extensive pneumonia right lung. There is masslike consolidation in the right middle lobe. There is mild cavitation in the right lower lobe. There is associated right paratracheal adenopathy. 3. Underlying chronic obstructive pulmonary disease. Could be severe due to the fact that she has chronic hypercapnia. 4. Acute kidney injury. 5. No significant leukocytosis. 6. COVID negative. Plan . RECOMMENDATIONS: 1. We will continue with present nasal cannula at [address] chest reviewed as discussed above. 3. Continue empiric antibiotic. The coverage was broadened . Zyvox was added to cefepime. Watch for any serotonergic syndrome symptoms 4. Monitor renal function. 5. Monitor chest x-rays in next few days. 6. Continue present bronchodilators. 7. Empiric antibiotic. 8. Discussed with RN. PRASHANTH Madison MD Apr 09, 2021 10:33
[2021-04-09 11:00] VITALS: BP 115/82
--- NOTE | 2021-04-09 12:35 | NUR ---
SW following. Discussed with RN, updates faxed to [facility]. Awaiting anticipated discharge date. SW will continue to follow.
[2021-04-09 15:00] VITALS: BP 137/84
--- NOTE | 2021-04-09 16:54 | PDOC ---
[employer] PROGRESS NOTE Date of Service DOS: DATE: 04/09/21 TIME: 16:53 Chief Complaint Chief Complaint A/P: Right lower lobe pneumonia, likely some aspiration and likely gram-negative organisms given structural lung disease with COPD Acute hypoxic respiratory failure requiring BiPAP support Acute COPD exacerbation Mild hyperkalemia Hyponatremia - likely nutritional LINWOOD due to vasomotor nephropathy Hyperglycemia uncontrolled History of bipolar and schizoaffective disorder History of dementia History of depression anxiety History of hypertension History of pulmonary hypertension History of COPD Bipolar, dementia, depression, schizoaffective disorder, COPD who comes into the ED due to shortness of breath and hypoxia at medical [place]. Her O2 saturation was in the 70s initially and she was put on nasal cannula and BiPAP. Her saturations improved she was found to have right lobe pneumonia infiltrate seen on chest x-ray. Patient currently denies any fevers, chest pain, abdominal pain, dysuria or hematuria. History of Present Illness History of Present Illness Ms Connolly is a 71-year-old female with past medical history of bipolar, dementia, depression, schizoaffective disorder, COPD who comes into the ED due to shortness of breath and hypoxia at medical [place]. Her O2 saturation was in the 70s initially and she was put on nasal cannula and BiPAP. Her saturations improved she was found to have right lobe pneumonia infiltrate seen on chest x- ray. Patient currently denies any fevers, chest pain, abdominal pain, dysuria or hematuria. 04/07: Seen bedside. Off BiPAP requiring 8 L/min nasal cannula to maintain saturations 91%. Still with cough not able to get any sputum up today has significant wheezes and dyspnea. Complains of dry nares. She notes she has been urinating more since being admitted. She had not been urinating much prior to admission. Seen by pulmonology in consultation, CT chest with concern for cavitating pneumonia on right, changed to linezolid. 04/08: Afebrile. Still requiring 6 L/min nasal cannula O2. Cough still minimally productive at present. Still with wheezes. No nausea or vomiting. 04/09/2021 No acute events overnight. Patient seen and examined while working with physical therapy. Patient requires 6 L nasal cannula to maintain O2 sats greater than 90%. After working with PT and sitting down patient was saturating 88%. Patient may require 6-minute walk test before returning to LTC. Patient's chart, labs, images were reviewed and discussed with RN Vitals/I&O Vitals/I&O: Vital Signs Date Time Temp Pulse Resp B/P (MAP) Pulse Ox O2 Delivery O2 Flow Rate FiO2 04/09/21 15:59 Nasal Cannula 6.0 04/09/21 15:00 97.9 66 16 137/84 (101) 97 97.9 I & O 04/08/21 04/08/21 04/09/21 15:00 23:00 07:00 Intake Total 240 ml Output Total 2 ml Balance 238 ml Physical Exam General: Alert, Cooperative Heart: Regular rate, Normal S1, Normal S2 Lungs: Other (Decreased breath sounds on right side, few crackles.) Abdomen: Normal bowel sounds, Soft Labs Labs: Laboratory Tests Test 04/08/21 18:16 04/08/21 21:01 04/09/21 04:30 04/09/21 07:45 Glucose (Fingerstick) 309 mg/dL (70-99) 361 mg/dL (70-99) 207 mg/dL (70-99) White Blood Count 7.9 x10^3/uL (4.0-11.0) Red Blood Count 4.43 x10^6/uL (3.50-5.40) Hemoglobin 13.5 g/dL (12.0-15.5) Hematocrit 40.9 % (36.0-47.0) Mean Corpuscular Volume 92 fL (79-100) Mean Corpuscular Hemoglobin 30 pg (25-35) Mean Corpuscular Hemoglobin Concent 33 g/dL (31-37) Red Cell Distribution Width 13.2 % (11.5-14.5) Platelet Count 239 x10^3/uL (140-400) Neutrophils (%) (Auto) 84 % (31-73) Lymphocytes (%) (Auto) 9 % (24-48) Monocytes (%) (Auto) 8 % (0-9) Eosinophils (%) (Auto) 0 % (0-3) Basophils (%) (Auto) 0 % (0-3) Neutrophils # (Auto) 6.6 x10^3/uL (1.8-7.7) Lymphocytes # (Auto) 0.7 x10^3/uL (1.0-4.8) Monocytes # (Auto) 0.6 x10^3/uL (0.0-1.1) Eosinophils # (Auto) 0.0 x10^3/uL (0.0-0.7) Basophils # (Auto) 0.0 x10^3/uL (0.0-0.2) Sodium Level 138 mmol/L (136-145) Potassium Level 4.3 mmol/L (3.5-5.1) Chloride Level 102 mmol/L (98-107) Carbon Dioxide Level 28 mmol/L (21-32) Anion Gap 8 (6-14) Blood Urea Nitrogen 30 mg/dL (7-20) Creatinine 1.2 mg/dL (0.6-1.0) Estimated GFR (Cockcroft-Gault) 44.5 Glucose Level 156 mg/dL (70-99) Calcium Level 8.7 mg/dL (8.5-10.1) Magnesium Level 1.9 mg/dL (1.8-2.4) Assessment and Plan Assessmemt and Plan Problems Medical Problems: (1) Dementia Status: Acute (2) Hypoxia Status: Acute Comment Review of Relevant I have reviewed the following items myron (where applicable) has been applied. Medications: Current Medications Medications (Trade) Dose Ordered Sig/Marley Route PRN Reason Start Time Stop Time Status Last Admin Dose Admin Insulin Human Lispro (HumaLOG) 12 units 1X ONCE SQ 04/08/21 22:00 04/08/21 22:01 DC 04/08/21 22:21 Justifications for Admission Other Justification Hypoxic respiratory failure secondary to pneumonia HARJINDER BHAKTA MD Apr 09, 2021 16:53
[2021-04-09 19:00] VITALS: BP 141/71
[2021-04-09] MEDS: HALOPERIDOL 5 MG TABLET. PO SCH (21:18)
[2021-04-09] MEDS: MONTELUKAST SODIUM 10 MG TABLET. PO SCH (21:18)
[2021-04-09] MEDS: SENNOSIDES 8.6 MG TABLET PO PRN (21:18)
[2021-04-09] MEDS: ACETAMINOPHEN 325 MG TABLET. PO PRN (21:19)
[2021-04-09] MEDS: INSULIN GLARGINE SYRINGE. SQ SCH (21:28)
[2021-04-09 23:00] VITALS: BP 138/53
[2021-04-10 03:00] VITALS: BP 125/60
[2021-04-10] MEDS: HEPARIN for SUB-Q USE 5,000 UNIT/ML VIAL. SQ SCH ×3 (06:01→22:28)
[2021-04-10] MEDS: SODIUM CHLORIDE 0.65% NASAL SPRAY 45ML BOTTLE. NS PRN (06:25)
[2021-04-10 07:00] VITALS: BP 129/76
[2021-04-10] MEDS: buPROPion XL 150 MG TAB.ER.24H. PO SCH (08:20)
[2021-04-10] MEDS: LINEZOLID 600 MG TABLET PO SCH ×2 (08:20→21:08)
[2021-04-10] MEDS: SENNOSIDES 8.6 MG TABLET PO PRN (08:20)
[2021-04-10] MEDS: metroNIDAZOLE 500 MG TABLET PO SCH ×2 (08:20→21:08)
[2021-04-10] MEDS: ASPIRIN ENTERIC COATED 81 MG TABLET.DR. PO SCH (08:20)
[2021-04-10] MEDS: CEFEPIME HCL IV Push 1 GM VIAL. IVP SCH (08:20)
[2021-04-10] MEDS: PANTOPRAZOLE 40 MG TABLET.DR. PO SCH (08:20)
[2021-04-10] MEDS: LACTOBACILLUS RHAMNOSUS GG 1 CAPSULE. PO SCH ×2 (08:21→21:07)
[2021-04-10] MEDS: INSULIN LISPRO 300 UNITS/3 ML VIAL. SQ SCH ×6 (08:22→16:29)
[2021-04-10] MEDS: POLYVINYL ALCOHOL 1.4% OPHTH SOLUTION 15ML BOTTLE. OU SCH ×4 (08:22→21:09)
[2021-04-10] MEDS: BUDESONIDE 0.5 MG/2 ML NEBU. NEB SCH ×2 (08:40→18:17)
[2021-04-10] MEDS: IPRATRPIUM/ALBUTEROL 0.5/2.5MG 3 ML NEBU. NEB SCH ×4 (08:40→18:17)
[2021-04-10] MEDS: SENNOSIDES/DOCUSATE 8.6/50MG TABLET. PO SCH (09:00)
[2021-04-10 15:06] VITALS: BP 115/58
[2021-04-10 19:35] VITALS: BP 120/42
[2021-04-10] MEDS: MONTELUKAST SODIUM 10 MG TABLET. PO SCH (21:07)
[2021-04-10] MEDS: HALOPERIDOL 5 MG TABLET. PO SCH (21:07)
[2021-04-10] MEDS: ACETAMINOPHEN 325 MG TABLET. PO PRN (21:08)
[2021-04-10] MEDS: ZOLPIDEM 5 MG TABLET. PO PRN (21:08)
[2021-04-10] MEDS: INSULIN GLARGINE SYRINGE. SQ SCH (21:19)
[2021-04-10 23:15] VITALS: BP 135/63
[2021-04-11 03:20] VITALS: BP 126/63
[2021-04-11] MEDS: SODIUM CHLORIDE 0.65% NASAL SPRAY 45ML BOTTLE. NS PRN (04:04)
[2021-04-11] MEDS: HEPARIN for SUB-Q USE 5,000 UNIT/ML VIAL. SQ SCH ×3 (06:03→23:10)
[2021-04-11] MEDS: SENNOSIDES/DOCUSATE 8.6/50MG TABLET. PO SCH (07:48)
[2021-04-11] MEDS: BUDESONIDE 0.5 MG/2 ML NEBU. NEB SCH ×2 (08:01→18:31)
[2021-04-11] MEDS: IPRATRPIUM/ALBUTEROL 0.5/2.5MG 3 ML NEBU. NEB SCH ×4 (08:01→18:31)
[2021-04-11] MEDS: metroNIDAZOLE 500 MG TABLET PO SCH ×2 (08:51→22:42)
[2021-04-11] MEDS: LACTOBACILLUS RHAMNOSUS GG 1 CAPSULE. PO SCH ×2 (08:51→22:42)
[2021-04-11] MEDS: CEFEPIME HCL IV Push 1 GM VIAL. IVP SCH (08:51)
[2021-04-11] MEDS: ASPIRIN ENTERIC COATED 81 MG TABLET.DR. PO SCH (08:51)
[2021-04-11] MEDS: PANTOPRAZOLE 40 MG TABLET.DR. PO SCH (08:51)
[2021-04-11] MEDS: LINEZOLID 600 MG TABLET PO SCH ×2 (08:51→22:42)
[2021-04-11] MEDS: buPROPion XL 150 MG TAB.ER.24H. PO SCH (08:51)
[2021-04-11] MEDS: POLYVINYL ALCOHOL 1.4% OPHTH SOLUTION 15ML BOTTLE. OU SCH ×4 (09:00→23:04)
[2021-04-11] MEDS: INSULIN LISPRO 300 UNITS/3 ML VIAL. SQ SCH ×6 (09:07→18:01)
--- NOTE | 2021-04-11 10:36 | PDOC ---
[employer] PROGRESS NOTE Date of Service DOS: Late entry for April 10 DATE: 04/10/21 TIME: 10:35 Chief Complaint Chief Complaint A/P: Right lower lobe pneumonia, likely some aspiration and likely gram-negative organisms given structural lung disease with COPD Acute hypoxic respiratory failure requiring BiPAP support Acute COPD exacerbation Mild hyperkalemia Hyponatremia - likely nutritional LINWOOD due to vasomotor nephropathy Hyperglycemia uncontrolled History of bipolar and schizoaffective disorder History of dementia History of depression anxiety History of hypertension History of pulmonary hypertension History of COPD Bipolar, dementia, depression, schizoaffective disorder, COPD who comes into the ED due to shortness of breath and hypoxia at medical [place]. Her O2 saturation was in the 70s initially and she was put on nasal cannula and BiPAP. Her saturations improved she was found to have right lobe pneumonia infiltrate seen on chest x-ray. Patient currently denies any fevers, chest pain, abdominal pain, dysuria or hematuria. History of Present Illness History of Present Illness Ms Connolly is a 71-year-old female with past medical history of bipolar, dementia, depression, schizoaffective disorder, COPD who comes into the ED due to shortness of breath and hypoxia at medical [place]. Her O2 saturation was in the 70s initially and she was put on nasal cannula and BiPAP. Her saturations improved she was found to have right lobe pneumonia infiltrate seen on chest x- ray. Patient currently denies any fevers, chest pain, abdominal pain, dysuria or hematuria. 04/07: Seen bedside. Off BiPAP requiring 8 L/min nasal cannula to maintain saturations 91%. Still with cough not able to get any sputum up today has significant wheezes and dyspnea. Complains of dry nares. She notes she has been urinating more since being admitted. She had not been urinating much prior to admission. Seen by pulmonology in consultation, CT chest with concern for cavitating pneumonia on right, changed to linezolid. 04/08: Afebrile. Still requiring 6 L/min nasal cannula O2. Cough still minimally productive at present. Still with wheezes. No nausea or vomiting. 04/09/2021 No acute events overnight. Patient seen and examined while working with physical therapy. Patient requires 6 L nasal cannula to maintain O2 sats greater than 90%. After working with PT and sitting down patient was saturating 88%. Patient may require 6-minute walk test before returning to LTC. Patient's chart, labs, images were reviewed and discussed with RN 04/10 Patient seen and examined at bedside. Still requiring 6 L nasal cannula. Continue current treatments. Maybe discharge early after the weekend. Vitals/I&O Vitals/I&O: Vital Signs Date Time Temp Pulse Resp B/P (MAP) Pulse Ox O2 Delivery O2 Flow Rate FiO2 04/11/21 08:03 94 Nasal Cannula 6.0 04/11/21 03:20 98.0 105 20 126/63 (84) 98.0 I & O 04/10/21 04/10/21 04/11/21 15:00 23:00 07:00 Intake Total 540 ml Balance 540 ml Physical Exam General: Alert, Cooperative Heart: Regular rate, Normal S1, Normal S2 Lungs: Other (Decreased breath sounds on right side, few crackles.) Abdomen: Normal bowel sounds, Soft Labs Labs: Laboratory Tests Test 04/10/21 11:56 04/10/21 15:55 04/10/21 21:02 04/11/21 08:50 Glucose (Fingerstick) 179 mg/dL (70-99) 80 mg/dL (70-99) 267 mg/dL (70-99) 228 mg/dL (70-99) Assessment and Plan Assessmemt and Plan Problems Medical Problems: (1) Dementia Status: Acute (2) Hypoxia Status: Acute Comment Review of Relevant I have reviewed the following items myron (where applicable) has been applied. Justifications for Admission Other Justification Hypoxic respiratory failure secondary to pneumonia HUSSEIN NGUYEN MD Apr 11, 2021 10:36
[2021-04-11 11:00] VITALS: BP 136/64
--- NOTE | 2021-04-11 13:03 | PDOC ---
PULMONARY PROGRESS NOTES DATE: 04/11/21 TIME: 13:01 Subjective Patient sleepy Remains on nasal cannula at 6 L. Vitals Vital Signs Date Time Temp Pulse Resp B/P (MAP) Pulse Ox O2 Delivery O2 Flow Rate FiO2 04/11/21 11:35 96 Nasal Cannula 6.0 04/11/21 11:00 98.2 106 20 136/64 (88) 98.2 Lungs: Other (Decreased breath sounds on right side, few crackles.) Cardiovascular: S1, S2 Abdomen: Soft Extremities: No Edema Skin: Warm Labs Laboratory Tests Test 04/09/21 17:12 04/09/21 20:42 04/10/21 07:52 04/10/21 11:56 Glucose (Fingerstick) 127 mg/dL (70-99) 258 mg/dL (70-99) 209 mg/dL (70-99) 179 mg/dL (70-99) Test 04/10/21 15:55 04/10/21 21:02 04/11/21 08:50 04/11/21 12:34 Glucose (Fingerstick) 80 mg/dL (70-99) 267 mg/dL (70-99) 228 mg/dL (70-99) 162 mg/dL (70-99) Laboratory Tests Test 04/10/21 15:55 04/10/21 21:02 04/11/21 08:50 04/11/21 12:34 Glucose (Fingerstick) 80 mg/dL (70-99) 267 mg/dL (70-99) 228 mg/dL (70-99) 162 mg/dL (70-99) Medications Active Scripts Medications Dose Route/Sig Max Daily Dose Days Date Category Dose Instructions Seroquel Xr (Quetiapine Fumarate) 150 Mg Tab.er.24h 1 Tab PO QHS 04/06/21 Reported Seroquel (Quetiapine Fumarate) 50 Mg Tablet 50 Mg PO BID 04/06/21 Reported Prozac (Fluoxetine Hcl) 40 Mg Capsule 40 Mg PO HS 04/06/21 Reported Potassium Citrate Er (Potassium Citrate) 15 Meq Tablet.er 20 Meq PO DAILY 04/06/21 Reported Calcium 500 + Vit D 200 Caplet (Calcium Carbonate/Vitamin D3) 1 Each Tablet 1 Each PO DAILY 04/06/21 Reported Namenda (Memantine Hcl) 10 Mg Tablet 10 Mg PO BID 04/06/21 Reported Metoprolol Succinate ( Xl ) (Metoprolol Succinate) 100 Mg Tab.er.24h 50 Mg PO DAILY 04/06/21 Reported Melatonin 3 Mg Tab.rapdis 1 Tab PO QHS 30 04/06/21 Reported Losartan Potassium 100 Mg Tablet 100 Mg PO DAILY 04/06/21 Reported Humulin N (Nph, Human Insulin Isophane) 100 Unit/1 Ml Vial 8 Unit SQ BID 04/06/21 Reported Lantus Solostar (Insulin Glargine,Hum.rec.anlog) 100 Unit/1 Ml Insuln.pen 20 Unit SQ QHS 04/06/21 Reported Loratadine 10 Mg Tablet 1 Tab PO DAILY 04/06/21 Reported Lasix (Furosemide) 20 Mg Tablet 20 Mg PO DAILY 04/06/21 Reported Haloperidol 5 Mg Tablet 7.5 Mg PO HS 04/06/21 Reported Depakote Er (Divalproex Sodium) 250 Mg Tab.er.24h 1 Tab PO QHS 04/06/21 Reported Buspirone Hcl 10 Mg Tablet 1 Tab PO BID 04/06/21 Reported Aricept (Donepezil Hcl) 10 Mg Tablet 10 Mg PO HS 04/06/21 Reported Amantadine (Amantadine Hcl) 100 Mg Tablet 50 Mg PO BID 04/06/21 Reported Senna-Time S Tablet (Sennosides/Docusate Sodium) 1 Each Tablet 2 Tab PO DAILY10 09/22/16 Rx Take by mouth 2 tablets daily Novolog Flexpen (Insulin Aspart) 100 Unit/1 Ml Insuln.pen 0-12 Unit SQ TIDAC 09/20/16 Rx inject subq tid ac: 101-150=2unit, 151-200=3 unit, 201-250=4 unit, 251-300=6 unit, 301-350=8 unit, 351-400=10 unit >401 call Novolog Flexpen (Insulin Aspart) 100 Unit/1 Ml Insuln.pen 12 Units SQ TIDAC 09/20/16 Rx Inject 12 units tid ac Tylenol Extra Strength (Acetaminophen) 500 Mg Tablet 1,000 Mg PO Q8HRS PRN 09/18/16 Reported Glucagon Emergency Kit (Glucagon,Human Recombinant) 1 Mg Kit 1 Mg IM PRN 09/18/16 Reported Flonase Allergy Relief (Fluticasone Propionate) 9.9 Ml [place].susp 2 Sprays NS DAILY 09/18/16 Reported Breo Ellipta 100-25 Mcg Inh (Fluticasone/Vilanterol) 1 Each Aer.pow.ba 1 Puff IH DAILY 09/18/16 Reported Biofreeze (Menthol) 118 Ml Gel..ml. 118 Ml TP PRN PRN 09/18/16 Reported lower back and right shoulder Artificial Tears Eye Drops (Dextran 70/Hypromellose) 15 Ml Drops 2 Drop EACHEYE QID 09/18/16 Reported Wellbutrin Xl (Bupropion Hcl) 150 Mg Tab.er.24h 1 Tab PO DAILY 09/27/14 Reported Vaseline White Petroleum (Petrolatum,White) 5 Gm Oint.pack 1 Gm TP HS 09/27/14 Reported Spiriva (Tiotropium [place]) 18 Mcg Cap.w.dev 1 Cap IH DAILY 09/27/14 Reported Simvastatin 20 Mg Tablet 20 Mg PO HS 09/27/14 Reported Isopto Tears (Hypromellose) 15 Ml Drops 15 Ml OP PRN Q6HRS PRN 09/27/14 Reported Glucose Gel (Dextrose) 38 Gm Gel..gram. 38 Gm PO PRN PRN 09/27/14 Reported Cyanocobalamin Injection (Cyanocobalamin (Vitamin B-12)) 1,000 Mcg/1 Ml Vial 1 Ml IM QMONTH 09/27/14 Reported Aspirin Ec (Aspirin) 81 Mg Tablet.dr 1 Tab PO DAILY 09/27/14 Reported Proair Hfa Inhaler (Albuterol Sulfate) 8.5 Gm Hfa.aer.ad 2 Puff IH PRN Q6HRS PRN 09/27/[address] chest IMPRESSION: 1. Multifocal masslike consolidated infiltrate within the right middle and lower lobes, the latter of which is associated with a component of cavitation. There is extensive surrounding groundglass and nodular infiltrate throughout the remainder of the right lung and left lower lobe. Follow-up to confirm resolution and exclude a persistent underlying mass. 2. Right paratracheal mass likely due to conglomerate lymphadenopathy. There is additional mediastinal and right hilar lymphadenopathy. This likely reactive given the aforementioned findings. Attention the time of follow-up to confirm resolution is recommended. 3. Small pericardial effusion. Electronically signed by: Elizabeth Dennison MD (04/07/2021 3:05 PM) [id number] Impression . 1. Acute hypoxic respiratory failure, suspect secondary to multifactorial etiologies and includes combination of acute exacerbation of chronic obstructive pulmonary disease and extensive pneumonia. 2. Abnormal CT chest with extensive pneumonia right lung. There is masslike consolidation in the right middle lobe. There is mild cavitation in the right lower lobe. There is associated right paratracheal adenopathy. 3. Underlying chronic obstructive pulmonary disease. Could be severe due to the fact that she has chronic hypercapnia. 4. Acute kidney injury. 5. No significant leukocytosis. 6. COVID negative. Plan . RECOMMENDATIONS: 1. We will continue with present nasal cannula at [address] chest reviewed as discussed above. 3. Continue empiric antibiotic. The coverage was broadened . Zyvox was added to cefepime. Watch for any serotonergic syndrome symptoms 4. Monitor renal function. 5. Monitor chest x-rays . ordered for Tuesday 6. Continue present bronchodilators. 7. Empiric antibiotic. 8. Discussed with RN. off steroids PRASHANTH DURAN MD Apr 11, 2021 13:03
[2021-04-11 15:00] VITALS: BP 130/57
[2021-04-11] MEDS: ACETAMINOPHEN 325 MG TABLET. PO PRN (17:56)
--- NOTE | 2021-04-11 19:12 | PDOC ---
[facility] PROGRESS NOTE Date of Service DOS: DATE: 04/11/21 TIME: 19:11 Chief Complaint Chief Complaint A/P: Right lower lobe pneumonia, likely some aspiration and likely gram-negative organisms given structural lung disease with COPD Acute hypoxic respiratory failure requiring BiPAP support Acute COPD exacerbation Mild hyperkalemia Hyponatremia - likely nutritional LINWOOD due to vasomotor nephropathy Hyperglycemia uncontrolled History of bipolar and schizoaffective disorder History of dementia History of depression anxiety History of hypertension History of pulmonary hypertension History of COPD Bipolar, dementia, depression, schizoaffective disorder, COPD who comes into the ED due to shortness of breath and hypoxia at medical [place]. Her O2 saturation was in the 70s initially and she was put on nasal cannula and BiPAP. Her saturations improved she was found to have right lobe pneumonia infiltrate seen on chest x-ray. Patient currently denies any fevers, chest pain, abdominal pain, dysuria or hematuria. History of Present Illness History of Present Illness Ms Connolly is a 71-year-old female with past medical history of bipolar, dementia, depression, schizoaffective disorder, COPD who comes into the ED due to shortness of breath and hypoxia at medical [place]. Her O2 saturation was in the 70s initially and she was put on nasal cannula and BiPAP. Her saturations improved she was found to have right lobe pneumonia infiltrate seen on chest x- ray. Patient currently denies any fevers, chest pain, abdominal pain, dysuria or hematuria. 04/07: Seen bedside. Off BiPAP requiring 8 L/min nasal cannula to maintain saturations 91%. Still with cough not able to get any sputum up today has significant wheezes and dyspnea. Complains of dry nares. She notes she has been urinating more since being admitted. She had not been urinating much prior to admission. Seen by pulmonology in consultation, CT chest with concern for cavitating pneumonia on right, changed to linezolid. 04/08: Afebrile. Still requiring 6 L/min nasal cannula O2. Cough still minimally productive at present. Still with wheezes. No nausea or vomiting. 04/09/2021 No acute events overnight. Patient seen and examined while working with physical therapy. Patient requires 6 L nasal cannula to maintain O2 sats greater than 90%. After working with PT and sitting down patient was saturating 88%. Patient may require 6-minute walk test before returning to LTC. Patient's chart, labs, images were reviewed and discussed with RN 04/10 Patient seen and examined at bedside. Still requiring 6 L nasal cannula. Continue current treatments. Maybe discharge early after the weekend. 04/11 eval and examined at bedside. still on 6L NC. pretty lethargic today. otherwise continue current Vitals/I&O Vitals/I&O: Vital Signs Date Time Temp Pulse Resp B/P (MAP) Pulse Ox O2 Delivery O2 Flow Rate FiO2 04/11/21 18:31 Nasal Cannula 5.0 04/11/21 15:28 95 04/11/21 15:00 97.6 114 20 130/57 (81) 97.6 I & O 0 04/10/21 04/10/21 04/11/21 15:00 23:00 07:00 Intake Total 540 ml Balance 540 ml Physical Exam General: Alert, Cooperative Heart: Regular rate, Normal S1, Normal S2 Lungs: Other (Decreased breath sounds on right side, few crackles.) Abdomen: Normal bowel sounds, Soft Labs Labs: Laboratory Tests Test 04/10/21 21:02 04/11/21 08:50 04/11/21 12:34 04/11/21 16:42 Glucose (Fingerstick) 267 mg/dL (70-99) 228 mg/dL (70-99) 162 mg/dL (70-99) 155 mg/dL (70-99) Assessment and Plan Assessmemt and Plan Problems Medical Problems: (1) Dementia Status: Acute (2) Hypoxia Status: Acute Comment Review of Relevant I have reviewed the following items myron (where applicable) has been applied. Justifications for Admission Other Justification Hypoxic respiratory failure secondary to pneumonia HUSSEIN NGUYEN MD Apr 11, 2021 19:12
[2021-04-11 19:45] VITALS: BP 126/67
[2021-04-11] MEDS: HALOPERIDOL 5 MG TABLET. PO SCH (22:41)
[2021-04-11] MEDS: MONTELUKAST SODIUM 10 MG TABLET. PO SCH (22:42)
[2021-04-11] MEDS: INSULIN GLARGINE SYRINGE. SQ SCH (23:09)
[2021-04-11 23:30] VITALS: BP 140/56
[2021-04-12 03:55] VITALS: BP 143/75
[2021-04-12] MEDS: ACETAMINOPHEN 325 MG TABLET. PO PRN ×2 (06:23→20:58)
[2021-04-12] MEDS: HEPARIN for SUB-Q USE 5,000 UNIT/ML VIAL. SQ SCH ×3 (06:33→22:00)
[2021-04-12 06:37] VITALS: BP 130/60
[2021-04-12] MEDS: SENNOSIDES/DOCUSATE 8.6/50MG TABLET. PO SCH (07:34)
[2021-04-12] MEDS: BUDESONIDE 0.5 MG/2 ML NEBU. NEB SCH ×2 (08:02→18:11)
[2021-04-12] MEDS: IPRATRPIUM/ALBUTEROL 0.5/2.5MG 3 ML NEBU. NEB SCH ×4 (08:02→18:11)
[2021-04-12] MEDS: ASPIRIN ENTERIC COATED 81 MG TABLET.DR. PO SCH (08:22)
[2021-04-12] MEDS: LINEZOLID 600 MG TABLET PO SCH ×2 (08:22→21:31)
[2021-04-12] MEDS: LACTOBACILLUS RHAMNOSUS GG 1 CAPSULE. PO SCH ×2 (08:22→21:33)
[2021-04-12] MEDS: PANTOPRAZOLE 40 MG TABLET.DR. PO SCH (08:22)
[2021-04-12] MEDS: POLYVINYL ALCOHOL 1.4% OPHTH SOLUTION 15ML BOTTLE. OU SCH ×4 (08:22→21:30)
[2021-04-12] MEDS: metroNIDAZOLE 500 MG TABLET PO SCH ×2 (08:22→21:33)
[2021-04-12] MEDS: buPROPion XL 150 MG TAB.ER.24H. PO SCH (08:22)
[2021-04-12] MEDS: INSULIN LISPRO 300 UNITS/3 ML VIAL. SQ SCH ×6 (08:36→17:00)
[2021-04-12] MEDS: CEFEPIME HCL IV Push 1 GM VIAL. IVP SCH (09:00)
[2021-04-12 11:00] VITALS: BP 131/58
--- NOTE | 2021-04-12 11:12 | PDOC ---
[facility] [facility] PROGRESS NOTE Date of Service DOS: DATE: 04/12/21 TIME: 11:10 Chief Complaint Chief Complaint A/P: Right lower lobe pneumonia, likely some aspiration and likely gram-negative organisms given structural lung disease with COPD Acute hypoxic respiratory failure requiring BiPAP support Acute COPD exacerbation Mild hyperkalemia Hyponatremia - likely nutritional LINWOOD due to vasomotor nephropathy Hyperglycemia uncontrolled History of bipolar and schizoaffective disorder History of dementia History of depression anxiety History of hypertension History of pulmonary hypertension History of COPD Bipolar, dementia, depression, schizoaffective disorder, COPD who comes into the ED due to shortness of breath and hypoxia at medical [place]. Her O2 saturation was in the 70s initially and she was put on nasal cannula and BiPAP. Her saturations improved she was found to have right lobe pneumonia infiltrate seen on chest x-ray. Patient currently denies any fevers, chest pain, abdominal pain, dysuria or hematuria. History of Present Illness History of Present Illness Ms Connolly is a 71-year-old female with past medical history of bipolar, dementia, depression, schizoaffective disorder, COPD who comes into the ED due to shortness of breath and hypoxia at medical [place]. Her O2 saturation was in the 70s initially and she was put on nasal cannula and BiPAP. Her saturations improved she was found to have right lobe pneumonia infiltrate seen on chest x- ray. Patient currently denies any fevers, chest pain, abdominal pain, dysuria or hematuria. 04/07: Seen bedside. Off BiPAP requiring 8 L/min nasal cannula to maintain saturations 91%. Still with cough not able to get any sputum up today has significant wheezes and dyspnea. Complains of dry nares. She notes she has been urinating more since being admitted. She had not been urinating much prior to admission. Seen by pulmonology in consultation, CT chest with concern for cavitating pneumonia on right, changed to linezolid. 04/08: Afebrile. Still requiring 6 L/min nasal cannula O2. Cough still minimally productive at present. Still with wheezes. No nausea or vomiting. 04/09/2021 No acute events overnight. Patient seen and examined while working with physical therapy. Patient requires 6 L nasal cannula to maintain O2 sats greater than 90%. After working with PT and sitting down patient was saturating 88%. Patient may require 6-minute walk test before returning to LTC. Patient's chart, labs, images were reviewed and discussed with RN 04/10 Patient seen and examined at bedside. Still requiring 6 L nasal cannula. Continue current treatments. Maybe discharge early after the weekend. 04/11 eval and examined at bedside. still on 6L NC. pretty lethargic today. otherwise continue current 04/12 Patient evaluated examined at bedside. Down to 5 L nasal cannula today. Continue abx, steroids. Will order 6min walk for tomorrow AM just to see how patient does. Vitals/I&O Vitals/I&O: Vital Signs Date Time Temp Pulse Resp B/P (MAP) Pulse Ox O2 Delivery O2 Flow Rate FiO2 04/12/21 08:02 97 Nasal Cannula 5.0 04/12/21 06:37 97.3 101 21 130/60 (83) 97.3 I & O 04/11/21 04/11/21 04/12/21 15:00 23:00 07:00 Intake Total 600 ml Output Total 0 ml Balance 600 ml Physical Exam General: Alert, Cooperative Heart: Regular rate, Normal S1, Normal S2 Lungs: Other (Decreased breath sounds on right side, few crackles.) Abdomen: Normal bowel sounds, Soft Labs Labs: Laboratory Tests Test 04/11/21 12:34 04/11/21 16:42 04/11/21 20:41 04/12/21 08:03 Glucose (Fingerstick) 162 mg/dL (70-99) 155 mg/dL (70-99) 115 mg/dL (70-99) 258 mg/dL (70-99) Assessment and Plan Assessmemt and Plan Problems Medical Problems: (1) Dementia Status: Acute (2) Hypoxia Status: Acute Comment Review of Relevant I have reviewed the following items myron (where applicable) has been applied. Justifications for Admission Other Justification Hypoxic respiratory failure secondary to pneumonia HUSSEIN NGUYEN MD Apr 12, 2021 11:12
--- NOTE | 2021-04-12 11:25 | PDOC ---
PULMONARY PROGRESS NOTES DATE: 04/12/21 TIME: 11:24 Subjective Patient is fully awake. Remains on nasal cannula at 5 L. Vitals Vital Signs Date Time Temp Pulse Resp B/P (MAP) Pulse Ox O2 Delivery O2 Flow Rate FiO2 04/12/21 08:02 97 Nasal Cannula 5.0 04/12/21 06:37 97.3 101 21 130/60 (83) 97.3 Lungs: Other (Decreased breath sounds on right side, few crackles.) Cardiovascular: S1, S2 Abdomen: Soft Extremities: No Edema Skin: Warm Labs Laboratory Tests Test 04/10/21 11:56 04/10/21 15:55 04/10/21 21:02 04/11/21 08:50 Glucose (Fingerstick) 179 mg/dL (70-99) 80 mg/dL (70-99) 267 mg/dL (70-99) 228 mg/dL (70-99) Test 04/11/21 12:34 04/11/21 16:42 04/11/21 20:41 04/12/21 08:03 Glucose (Fingerstick) 162 mg/dL (70-99) 155 mg/dL (70-99) 115 mg/dL (70-99) 258 mg/dL (70-99) Laboratory Tests Test 04/11/21 12:34 04/11/21 16:42 04/11/21 20:41 04/12/21 08:03 Glucose (Fingerstick) 162 mg/dL (70-99) 155 mg/dL (70-99) 115 mg/dL (70-99) 258 mg/dL (70-99) Medications Active Scripts Medications Dose Route/Sig Max Daily Dose Days Date Category Dose Instructions Seroquel Xr (Quetiapine Fumarate) 150 Mg Tab.er.24h 1 Tab PO QHS 04/06/21 Reported Seroquel (Quetiapine Fumarate) 50 Mg Tablet 50 Mg PO BID 04/06/21 Reported Prozac (Fluoxetine Hcl) 40 Mg Capsule 40 Mg PO HS 04/06/21 Reported Potassium Citrate Er (Potassium Citrate) 15 Meq Tablet.er 20 Meq PO DAILY 04/06/21 Reported Calcium 500 + Vit D 200 Caplet (Calcium Carbonate/Vitamin D3) 1 Each Tablet 1 Each PO DAILY 04/06/21 Reported Namenda (Memantine Hcl) 10 Mg Tablet 10 Mg PO BID 04/06/21 Reported Metoprolol Succinate ( Xl ) (Metoprolol Succinate) 100 Mg Tab.er.24h 50 Mg PO DAILY 04/06/21 Reported Melatonin 3 Mg Tab.rapdis 1 Tab PO QHS 30 04/06/21 Reported Losartan Potassium 100 Mg Tablet 100 Mg PO DAILY 04/06/21 Reported Humulin N (Nph, Human Insulin Isophane) 100 Unit/1 Ml Vial 8 Unit SQ BID 04/06/21 Reported Lantus Solostar (Insulin Glargine,Hum.rec.anlog) 100 Unit/1 Ml Insuln.pen 20 Unit SQ QHS 04/06/21 Reported Loratadine 10 Mg Tablet 1 Tab PO DAILY 04/06/21 Reported Lasix (Furosemide) 20 Mg Tablet 20 Mg PO DAILY 04/06/21 Reported Haloperidol 5 Mg Tablet 7.5 Mg PO HS 04/06/21 Reported Depakote Er (Divalproex Sodium) 250 Mg Tab.er.24h 1 Tab PO QHS 04/06/21 Reported Buspirone Hcl 10 Mg Tablet 1 Tab PO BID 04/06/21 Reported Aricept (Donepezil Hcl) 10 Mg Tablet 10 Mg PO HS 04/06/21 Reported Amantadine (Amantadine Hcl) 100 Mg Tablet 50 Mg PO BID 04/06/21 Reported Senna-Time S Tablet (Sennosides/Docusate Sodium) 1 Each Tablet 2 Tab PO DAILY10 09/22/16 Rx Take by mouth 2 tablets daily Novolog Flexpen (Insulin Aspart) 100 Unit/1 Ml Insuln.pen 0-12 Unit SQ TIDAC 09/20/16 Rx inject subq tid ac: 101-150=2unit, 151-200=3 unit, 201-250=4 unit, 251-300=6 unit, 301-350=8 unit, 351-400=10 unit >401 call Novolog Flexpen (Insulin Aspart) 100 Unit/1 Ml Insuln.pen 12 Units SQ TIDAC 09/20/16 Rx Inject 12 units tid ac Tylenol Extra Strength (Acetaminophen) 500 Mg Tablet 1,000 Mg PO Q8HRS PRN 09/18/16 Reported Glucagon Emergency Kit (Glucagon,Human Recombinant) 1 Mg Kit 1 Mg IM PRN 09/18/16 Reported Flonase Allergy Relief (Fluticasone Propionate) 9.9 Ml [place].susp 2 Sprays NS DAILY 09/18/16 Reported Breo Ellipta 100-25 Mcg Inh (Fluticasone/Vilanterol) 1 Each Aer.pow.ba 1 Puff IH DAILY 09/18/16 Reported Biofreeze (Menthol) 118 Ml Gel..ml. 118 Ml TP PRN PRN 09/18/16 Reported lower back and right shoulder Artificial Tears Eye Drops (Dextran 70/Hypromellose) 15 Ml Drops 2 Drop EACHEYE QID 09/18/16 Reported Wellbutrin Xl (Bupropion Hcl) 150 Mg Tab.er.24h 1 Tab PO DAILY 09/27/14 Reported Vaseline White Petroleum (Petrolatum,White) 5 Gm Oint.pack 1 Gm TP HS 09/27/14 Reported Spiriva (Tiotropium [place]) 18 Mcg Cap.w.dev 1 Cap IH DAILY 09/27/14 Reported Simvastatin 20 Mg Tablet 20 Mg PO HS 09/27/14 Reported Isopto Tears (Hypromellose) 15 Ml Drops 15 Ml OP PRN Q6HRS PRN 09/27/14 Reported Glucose Gel (Dextrose) 38 Gm Gel..gram. 38 Gm PO PRN PRN 09/27/14 Reported Cyanocobalamin Injection (Cyanocobalamin (Vitamin B-12)) 1,000 Mcg/1 Ml Vial 1 Ml IM QMONTH 09/27/14 Reported Aspirin Ec (Aspirin) 81 Mg Tablet.dr 1 Tab PO DAILY 09/27/14 Reported Proair Hfa Inhaler (Albuterol Sulfate) 8.5 Gm Hfa.aer.ad 2 Puff IH PRN Q6HRS PRN 09/27/[address] chest IMPRESSION: 1. Multifocal masslike consolidated infiltrate within the right middle and lower lobes, the latter of which is associated with a component of cavitation. There is extensive surrounding groundglass and nodular infiltrate throughout the remainder of the right lung and left lower lobe. Follow-up to confirm resolution and exclude a persistent underlying mass. 2. Right paratracheal mass likely due to conglomerate lymphadenopathy. There is additional mediastinal and right hilar lymphadenopathy. This likely reactive given the aforementioned findings. Attention the time of follow-up to confirm resolution is recommended. 3. Small pericardial effusion. Electronically signed by: Elizabeth Dennison MD (04/07/2021 3:05 PM) [id number] Impression . 1. Acute hypoxic respiratory failure, suspect secondary to multifactorial etiologies and includes combination of acute exacerbation of chronic obstructive pulmonary disease and extensive pneumonia. 2. Abnormal CT chest with extensive pneumonia right lung. There is masslike consolidation in the right middle lobe. There is mild cavitation in the right lower lobe. There is associated right paratracheal adenopathy. 3. Underlying chronic obstructive pulmonary disease. Could be severe due to the fact that she has chronic hypercapnia. 4. Acute kidney injury. 5. No significant leukocytosis. 6. COVID negative. Plan . RECOMMENDATIONS: 1. We will continue with present nasal cannula at 5 liters. Wean FiO2 to keep saturation 92% and above. 2. CT chest reviewed as discussed above. 3. Continue empiric antibiotic. The coverage was broadened . Zyvox was added to cefepime. Watch for any serotonergic syndrome symptoms 4. Monitor renal function. 5. Monitor chest x-rays . ordered for Tuesday 6. Continue present bronchodilators. 7. Empiric antibiotic. 8. Discussed with RN. off steroids PRASHANTH DURAN MD Apr 12, 2021 11:25
[2021-04-12 15:00] VITALS: BP 142/75
[2021-04-12 19:00] VITALS: BP 108/48
[2021-04-12] MEDS: HALOPERIDOL 5 MG TABLET. PO SCH (21:32)
[2021-04-12] MEDS: MONTELUKAST SODIUM 10 MG TABLET. PO SCH (21:33)
[2021-04-12] MEDS: ZOLPIDEM 5 MG TABLET. PO PRN (21:33)
[2021-04-12] MEDS: INSULIN GLARGINE SYRINGE. SQ SCH (21:40)
[2021-04-12 23:00] VITALS: BP 135/64
[2021-04-12] MEDS: LORazepam 0.5 MG TABLET PO PRN (23:25)
[2021-04-13] MEDS: HEPARIN for SUB-Q USE 5,000 UNIT/ML VIAL. SQ SCH ×3 (05:57→21:38)
[2021-04-13 07:00] VITALS: BP 125/74
[2021-04-13] MEDS: IPRATRPIUM/ALBUTEROL 0.5/2.5MG 3 ML NEBU. NEB SCH ×4 (07:14→18:16)
[2021-04-13] MEDS: BUDESONIDE 0.5 MG/2 ML NEBU. NEB SCH ×2 (07:14→18:17)
[2021-04-13] MEDS: SENNOSIDES/DOCUSATE 8.6/50MG TABLET. PO SCH (07:33)
[2021-04-13] MEDS: metroNIDAZOLE 500 MG TABLET PO SCH ×2 (08:30→21:29)
[2021-04-13] MEDS: ASPIRIN ENTERIC COATED 81 MG TABLET.DR. PO SCH (08:30)
[2021-04-13] MEDS: PANTOPRAZOLE 40 MG TABLET.DR. PO SCH (08:30)
[2021-04-13] MEDS: buPROPion XL 150 MG TAB.ER.24H. PO SCH (08:30)
[2021-04-13] MEDS: LACTOBACILLUS RHAMNOSUS GG 1 CAPSULE. PO SCH ×2 (08:30→21:29)
[2021-04-13] MEDS: LINEZOLID 600 MG TABLET PO SCH ×2 (08:30→21:29)
[2021-04-13] MEDS: CEFEPIME HCL IV Push 1 GM VIAL. IVP SCH (08:31)
[2021-04-13] MEDS: POLYVINYL ALCOHOL 1.4% OPHTH SOLUTION 15ML BOTTLE. OU SCH ×4 (08:31→21:31)
[2021-04-13] MEDS: INSULIN LISPRO 300 UNITS/3 ML VIAL. SQ SCH ×6 (08:43→18:50)
[2021-04-13 11:00] VITALS: BP 135/58
--- NOTE | 2021-04-13 12:03 | PDOC ---
PULMONARY PROGRESS NOTES DATE: 04/13/21 TIME: 12:00 Subjective Patient is fully awake. Remains on nasal cannula at 5 L. Vitals Vital Signs Date Time Temp Pulse Resp B/P (MAP) Pulse Ox O2 Delivery O2 Flow Rate FiO2 04/13/21 11:28 Nasal Cannula 5.0 04/13/21 07:14 94 04/13/21 07:00 97.6 117 24 125/74 (91) 97.6 Lungs: Other (Decreased breath sounds on right side, few crackles.) Cardiovascular: S1, S2 Abdomen: Soft Extremities: No Edema Skin: Warm Labs Laboratory Tests Test 04/11/21 12:34 04/11/21 16:42 04/11/21 20:41 04/12/21 08:03 Glucose (Fingerstick) 162 mg/dL (70-99) 155 mg/dL (70-99) 115 mg/dL (70-99) 258 mg/dL (70-99) Test 04/12/21 11:46 04/12/21 16:38 04/12/21 21:00 04/13/21 08:23 Glucose (Fingerstick) 284 mg/dL (70-99) 126 mg/dL (70-99) 224 mg/dL (70-99) 258 mg/dL (70-99) Test 04/13/21 11:55 Glucose (Fingerstick) 196 mg/dL (70-99) Laboratory Tests Test 04/12/21 16:38 04/12/21 21:00 04/13/21 08:23 04/13/21 11:55 Glucose (Fingerstick) 126 mg/dL (70-99) 224 mg/dL (70-99) 258 mg/dL (70-99) 196 mg/dL (70-99) Medications Active Scripts Medications Dose Route/Sig Max Daily Dose Days Date Category Dose Instructions Seroquel Xr (Quetiapine Fumarate) 150 Mg Tab.er.24h 1 Tab PO QHS 04/06/21 Reported Seroquel (Quetiapine Fumarate) 50 Mg Tablet 50 Mg PO BID 04/06/21 Reported Prozac (Fluoxetine Hcl) 40 Mg Capsule 40 Mg PO HS 04/06/21 Reported Potassium Citrate Er (Potassium Citrate) 15 Meq Tablet.er 20 Meq PO DAILY 04/06/21 Reported Calcium 500 + Vit D 200 Caplet (Calcium Carbonate/Vitamin D3) 1 Each Tablet 1 Each PO DAILY 04/06/21 Reported Namenda (Memantine Hcl) 10 Mg Tablet 10 Mg PO BID 04/06/21 Reported Metoprolol Succinate ( Xl ) (Metoprolol Succinate) 100 Mg Tab.er.24h 50 Mg PO DAILY 04/06/21 Reported Melatonin 3 Mg Tab.rapdis 1 Tab PO QHS 30 04/06/21 Reported Losartan Potassium 100 Mg Tablet 100 Mg PO DAILY 04/06/21 Reported Humulin N (Nph, Human Insulin Isophane) 100 Unit/1 Ml Vial 8 Unit SQ BID 04/06/21 Reported Lantus Solostar (Insulin Glargine,Hum.rec.anlog) 100 Unit/1 Ml Insuln.pen 20 Unit SQ QHS 04/06/21 Reported Loratadine 10 Mg Tablet 1 Tab PO DAILY 04/06/21 Reported Lasix (Furosemide) 20 Mg Tablet 20 Mg PO DAILY 04/06/21 Reported Haloperidol 5 Mg Tablet 7.5 Mg PO HS 04/06/21 Reported Depakote Er (Divalproex Sodium) 250 Mg Tab.er.24h 1 Tab PO QHS 04/06/21 Reported Buspirone Hcl 10 Mg Tablet 1 Tab PO BID 04/06/21 Reported Aricept (Donepezil Hcl) 10 Mg Tablet 10 Mg PO HS 04/06/21 Reported Amantadine (Amantadine Hcl) 100 Mg Tablet 50 Mg PO BID 04/06/21 Reported Senna-Time S Tablet (Sennosides/Docusate Sodium) 1 Each Tablet 2 Tab PO DAILY10 09/22/16 Rx Take by mouth 2 tablets daily Novolog Flexpen (Insulin Aspart) 100 Unit/1 Ml Insuln.pen 0-12 Unit SQ TIDAC 09/20/16 Rx inject subq tid ac: 101-150=2unit, 151-200=3 unit, 201-250=4 unit, 251-300=6 unit, 301-350=8 unit, 351-400=10 unit >401 call Novolog Flexpen (Insulin Aspart) 100 Unit/1 Ml Insuln.pen 12 Units SQ TIDAC 09/20/16 Rx Inject 12 units tid ac Tylenol Extra Strength (Acetaminophen) 500 Mg Tablet 1,000 Mg PO Q8HRS PRN 09/18/16 Reported Glucagon Emergency Kit (Glucagon,Human Recombinant) 1 Mg Kit 1 Mg IM PRN 09/18/16 Reported Flonase Allergy Relief (Fluticasone Propionate) 9.9 Ml [place].susp 2 Sprays NS DAILY 09/18/16 Reported Breo Ellipta 100-25 Mcg Inh (Fluticasone/Vilanterol) 1 Each Aer.pow.ba 1 Puff IH DAILY 09/18/16 Reported Biofreeze (Menthol) 118 Ml Gel..ml. 118 Ml TP PRN PRN 09/18/16 Reported lower back and right shoulder Artificial Tears Eye Drops (Dextran 70/Hypromellose) 15 Ml Drops 2 Drop EACHEYE QID 09/18/16 Reported Wellbutrin Xl (Bupropion Hcl) 150 Mg Tab.er.24h 1 Tab PO DAILY 09/27/14 Reported Vaseline White Petroleum (Petrolatum,White) 5 Gm Oint.pack 1 Gm TP HS 09/27/14 Reported Spiriva (Tiotropium [place]) 18 Mcg Cap.w.dev 1 Cap IH DAILY 09/27/14 Reported Simvastatin 20 Mg Tablet 20 Mg PO HS 09/27/14 Reported Isopto Tears (Hypromellose) 15 Ml Drops 15 Ml OP PRN Q6HRS PRN 09/27/14 Reported Glucose Gel (Dextrose) 38 Gm Gel..gram. 38 Gm PO PRN PRN 09/27/14 Reported Cyanocobalamin Injection (Cyanocobalamin (Vitamin B-12)) 1,000 Mcg/1 Ml Vial 1 Ml IM QMONTH 09/27/14 Reported Aspirin Ec (Aspirin) 81 Mg Tablet.dr 1 Tab PO DAILY 09/27/14 Reported Proair Hfa Inhaler (Albuterol Sulfate) 8.5 Gm Hfa.aer.ad 2 Puff IH PRN Q6HRS PRN 09/27/[address] chest IMPRESSION: 1. Multifocal masslike consolidated infiltrate within the right middle and lower lobes, the latter of which is associated with a component of cavitation. There is extensive surrounding groundglass and nodular infiltrate throughout the remainder of the right lung and left lower lobe. Follow-up to confirm resolution and exclude a persistent underlying mass. 2. Right paratracheal mass likely due to conglomerate lymphadenopathy. There is additional mediastinal and right hilar lymphadenopathy. This likely reactive given the aforementioned findings. Attention the time of follow-up to confirm resolution is recommended. 3. Small pericardial effusion. Electronically signed by: Elizaebth Dennison MD (04/07/2021 3:05 PM) [id number] Impression . 1. Acute hypoxic respiratory failure, suspect secondary to multifactorial etiologies and includes combination of acute exacerbation of chronic obstructive pulmonary disease and extensive pneumonia. 2. Abnormal CT chest with extensive pneumonia right lung. There is masslike consolidation in the right middle lobe. There is mild cavitation in the right lower lobe. There is associated right paratracheal adenopathy. 3. Underlying chronic obstructive pulmonary disease. Could be severe due to the fact that she has chronic hypercapnia. 4. Acute kidney injury. 5. No significant leukocytosis. 6. COVID negative. Plan . RECOMMENDATIONS: 1. We will continue with present nasal cannula at 5 liters. Wean FiO2 to keep saturation 92% and above. 2. CT chest reviewed as discussed above.CXR 04/13 reviewed. No major improvement. No fever, Normal wbc. ? BOOP. check sed rare, If high, add steroids 3. Continue empiric antibiotic. The coverage was broadened . Zyvox was added to cefepime. Watch for any serotonergic syndrome symptoms 4. Monitor renal function. 5. Monitor chest x-rays 6. Continue present bronchodilators. 7. Empiric antibiotic. 8. Discussed with RN. PRASHANTH DURAN MD Apr 13, 2021 12:03
--- NOTE | 2021-04-13 12:58 | NUR ---
SW following. Discussed with RN, pt from [facility], 5L, ada diet, COVID-19 negative. Pt wanting to return to facility. SW awaiting confirmation of discharge. SW trying to reach facility to provide update. JULIA will continue to follow. Addendum: 04/14/21 at 1542 by GEORGIA DUMONT Discharge orders faxed to [facility], awaiting transportation time. JULIA spoke with Roberta YANCEY at [facility] earlier to provide heads up RE discharge. RN notified.
--- NOTE | 2021-04-13 13:07 | RAD ---
EXAM: Chest, single view. HISTORY: Pneumonia. COMPARISON: 04/07/2021 FINDINGS: A frontal view of the chest is obtained. There is diffuse lower lobe predominant partially consolidated right lung infiltrate. There is left lower lobe interstitial infiltrate. There is no ple ural effusion. There is no pneumothorax. There is a stable cardiac silhouette. IMPRESSION: Stable diffuse partially consolidated right lung infiltrate and left lower lobe interstit ial infiltrate. Electronically signed by: Elizabeth Dennison MD (04/13/2021 1:05 PM) [facility]
[2021-04-13 15:00] VITALS: BP 123/67
[2021-04-13 19:00] VITALS: BP 136/66
--- NOTE | 2021-04-13 20:34 | PDOC ---
[employer] PROGRESS NOTE Date of Service DOS: DATE: 04/13/21 TIME: 20:29 Chief Complaint Chief Complaint A/P: Right lower lobe pneumonia, likely some aspiration and likely gram-negative organisms given structural lung disease with COPD Acute hypoxic respiratory failure requiring BiPAP support Acute COPD exacerbation Mild hyperkalemia Hyponatremia - likely nutritional [place] due to vasomotor nephropathy Hyperglycemia uncontrolled History of bipolar and schizoaffective disorder History of dementia History of depression anxiety History of hypertension History of pulmonary hypertension History of COPD Bipolar, dementia, depression, schizoaffective disorder, COPD who comes into the ED due to shortness of breath and hypoxia at medical [place]. Her O2 saturation was in the 70s initially and she was put on nasal cannula and BiPAP. Her saturations improved she was found to have right lobe pneumonia infiltrate seen on chest x-ray. Patient currently denies any fevers, chest pain, abdominal pain, dysuria or hematuria. History of Present Illness History of Present Illness Ms Connolly is a 71-year-old female with past medical history of bipolar, dementia, depression, schizoaffective disorder, COPD who comes into the ED due to shortness of breath and hypoxia at medical [place]. Her O2 saturation was in the 70s initially and she was put on nasal cannula and BiPAP. Her saturations improved she was found to have right lobe pneumonia infiltrate seen on chest x- ray. Patient currently denies any fevers, chest pain, abdominal pain, dysuria or hematuria. 04/07: Seen bedside. Off BiPAP requiring 8 L/min nasal cannula to maintain saturations 91%. Still with cough not able to get any sputum up today has significant wheezes and dyspnea. Complains of dry nares. She notes she has been urinating more since being admitted. She had not been urinating much prior to admission. Seen by pulmonology in consultation, CT chest with concern for cavitating pneumonia on right, changed to linezolid. 04/08: Afebrile. Still requiring 6 L/min nasal cannula O2. Cough still minimally productive at present. Still with wheezes. No nausea or vomiting. 04/09/2021 No acute events overnight. Patient seen and examined while working with physical therapy. Patient requires 6 L nasal cannula to maintain O2 sats greater than 90%. After working with PT and sitting down patient was saturating 88%. Patient may require 6-minute walk test before returning to LTC. Patient's chart, labs, images were reviewed and discussed with RN 04/10 Patient seen and examined at bedside. Still requiring 6 L nasal cannula. Continue current treatments. Maybe discharge early after the weekend. 04/11 eval and examined at bedside. still on 6L NC. pretty lethargic today. otherwise continue current 04/12 Patient evaluated examined at bedside. Down to 5 L nasal cannula today. Continue abx,. Will order 6min walk for tomorrow AM just to see how patient does. 04/13 Patient eval examined at bedside. ON 5L NC still. Normal ESR will hold off on the steroid addition. Patient a bit lethargic when seen. Too high O2 for 6 min walk per report. Continue current otherwise. Vitals/I&O Vitals/I&O: Vital Signs Date Time Temp Pulse Resp B/P (MAP) Pulse Ox O2 Delivery O2 Flow Rate FiO2 04/13/21 19:00 98.0 121 19 136/66 (89) 90 Nasal Cannula 5.0 98.0 I & O 04/12/21 04/12/21 04/13/21 15:00 23:00 07:00 Intake Total 350 ml Balance 350 ml Physical Exam General: Alert, Cooperative Heart: Regular rate, Normal S1, Normal S2 Lungs: Other (Decreased breath sounds on right side, few crackles.) Abdomen: Normal bowel sounds, Soft Labs Labs: Laboratory Tests Test 04/12/21 21:00 04/13/21 08:23 04/13/21 11:55 04/13/21 14:20 Glucose (Fingerstick) 224 mg/dL (70-99) 258 mg/dL (70-99) 196 mg/dL (70-99) Erythrocyte Sedimentation Rate 18 (0-25) Assessment and Plan Assessmemt and Plan Problems Medical Problems: (1) Dementia Status: Acute (2) Hypoxia Status: Acute Comment Review of Relevant I have reviewed the following items myron (where applicable) has been applied. Justifications for Admission Other Justification Hypoxic respiratory failure secondary to pneumonia HUSSEIN NGUYEN MD Apr 13, 2021 20:34
[2021-04-13] MEDS: ACETAMINOPHEN 325 MG TABLET. PO PRN (21:29)
[2021-04-13] MEDS: MONTELUKAST SODIUM 10 MG TABLET. PO SCH (21:29)
[2021-04-13] MEDS: HALOPERIDOL 5 MG TABLET. PO SCH (21:30)
[2021-04-13] MEDS: INSULIN GLARGINE SYRINGE. SQ SCH (21:38)
[2021-04-13] MEDS: ZOLPIDEM 5 MG TABLET. PO PRN (22:52)
[2021-04-13 23:41] VITALS: BP 126/70
[2021-04-14] MEDS: HEPARIN for SUB-Q USE 5,000 UNIT/ML VIAL. SQ SCH ×2 (05:40→14:00)
[2021-04-14] MEDS: BUDESONIDE 0.5 MG/2 ML NEBU. NEB SCH (06:23)
[2021-04-14] MEDS: IPRATRPIUM/ALBUTEROL 0.5/2.5MG 3 ML NEBU. NEB SCH ×2 (06:23→12:23)
[2021-04-14 07:00] VITALS: BP 140/57
[2021-04-14] MEDS: INSULIN LISPRO 300 UNITS/3 ML VIAL. SQ SCH ×6 (08:00→17:00)
--- NOTE | 2021-04-14 08:07 | PDOC ---
PULMONARY PROGRESS NOTES DATE: 04/14/21 TIME: 08:07 Subjective Patient is fully awake. Remains on nasal cannula at 5 L. Vitals Vital Signs Date Time Temp Pulse Resp B/P (MAP) Pulse Ox O2 Delivery O2 Flow Rate FiO2 04/14/21 06:24 92 Nasal Cannula 5.0 04/14/21 03:55 102 04/13/21 23:41 98.1 20 126/70 (88) 98.1 Lungs: Other (Decreased breath sounds on right side, few crackles.) Cardiovascular: S1, S2 Abdomen: Soft Extremities: No Edema Skin: Warm Labs Laboratory Tests Test 04/12/21 11:46 04/12/21 16:38 04/12/21 21:00 04/13/21 08:23 Glucose (Fingerstick) 284 mg/dL (70-99) 126 mg/dL (70-99) 224 mg/dL (70-99) 258 mg/dL (70-99) Test 04/13/21 11:55 04/13/21 14:20 04/13/21 21:08 Glucose (Fingerstick) 196 mg/dL (70-99) 242 mg/dL (70-99) Erythrocyte Sedimentation Rate 18 (0-25) Laboratory Tests Test 04/13/21 08:23 04/13/21 11:55 04/13/21 14:20 04/13/21 21:08 Glucose (Fingerstick) 258 mg/dL (70-99) 196 mg/dL (70-99) 242 mg/dL (70-99) Erythrocyte Sedimentation Rate 18 (0-25) Medications Active Scripts Medications Dose Route/Sig Max Daily Dose Days Date Category Dose Instructions Seroquel Xr (Quetiapine Fumarate) 150 Mg Tab.er.24h 1 Tab PO QHS 04/06/21 Reported Seroquel (Quetiapine Fumarate) 50 Mg Tablet 50 Mg PO BID 04/06/21 Reported Prozac (Fluoxetine Hcl) 40 Mg Capsule 40 Mg PO HS 04/06/21 Reported Potassium Citrate Er (Potassium Citrate) 15 Meq Tablet.er 20 Meq PO DAILY 04/06/21 Reported Calcium 500 + Vit D 200 Caplet (Calcium Carbonate/Vitamin D3) 1 Each Tablet 1 Each PO DAILY 04/06/21 Reported Namenda (Memantine Hcl) 10 Mg Tablet 10 Mg PO BID 04/06/21 Reported Metoprolol Succinate ( Xl ) (Metoprolol Succinate) 100 Mg Tab.er.24h 50 Mg PO DAILY 04/06/21 Reported Melatonin 3 Mg Tab.rapdis 1 Tab PO QHS 30 04/06/21 Reported Losartan Potassium 100 Mg Tablet 100 Mg PO DAILY 04/06/21 Reported Humulin N (Nph, Human Insulin Isophane) 100 Unit/1 Ml Vial 8 Unit SQ BID 04/06/21 Reported Lantus Solostar (Insulin Glargine,Hum.rec.anlog) 100 Unit/1 Ml Insuln.pen 20 Unit SQ QHS 04/06/21 Reported Loratadine 10 Mg Tablet 1 Tab PO DAILY 04/06/21 Reported Lasix (Furosemide) 20 Mg Tablet 20 Mg PO DAILY 04/06/21 Reported Haloperidol 5 Mg Tablet 7.5 Mg PO HS 04/06/21 Reported Depakote Er (Divalproex Sodium) 250 Mg Tab.er.24h 1 Tab PO QHS 04/06/21 Reported Buspirone Hcl 10 Mg Tablet 1 Tab PO BID 04/06/21 Reported Aricept (Donepezil Hcl) 10 Mg Tablet 10 Mg PO HS 04/06/21 Reported Amantadine (Amantadine Hcl) 100 Mg Tablet 50 Mg PO BID 04/06/21 Reported Senna-Time S Tablet (Sennosides/Docusate Sodium) 1 Each Tablet 2 Tab PO DAILY10 09/22/16 Rx Take by mouth 2 tablets daily Novolog Flexpen (Insulin Aspart) 100 Unit/1 Ml Insuln.pen 0-12 Unit SQ TIDAC 09/20/16 Rx inject subq tid ac: 101-150=2unit, 151-200=3 unit, 201-250=4 unit, 251-300=6 unit, 301-350=8 unit, 351-400=10 unit >401 call Novolog Flexpen (Insulin Aspart) 100 Unit/1 Ml Insuln.pen 12 Units SQ TIDAC 09/20/16 Rx Inject 12 units tid ac Tylenol Extra Strength (Acetaminophen) 500 Mg Tablet 1,000 Mg PO Q8HRS PRN 09/18/16 Reported Glucagon Emergency Kit (Glucagon,Human Recombinant) 1 Mg Kit 1 Mg IM PRN 09/18/16 Reported Flonase Allergy Relief (Fluticasone Propionate) 9.9 Ml [place].susp 2 Sprays NS DAILY 09/18/16 Reported Breo Ellipta 100-25 Mcg Inh (Fluticasone/Vilanterol) 1 Each Aer.pow.ba 1 Puff IH DAILY 09/18/16 Reported Biofreeze (Menthol) 118 Ml Gel..ml. 118 Ml TP PRN PRN 09/18/16 Reported lower back and right shoulder Artificial Tears Eye Drops (Dextran 70/Hypromellose) 15 Ml Drops 2 Drop EACHEYE QID 09/18/16 Reported Wellbutrin Xl (Bupropion Hcl) 150 Mg Tab.er.24h 1 Tab PO DAILY 09/27/14 Reported Vaseline White Petroleum (Petrolatum,White) 5 Gm Oint.pack 1 Gm TP HS 09/27/14 Reported Spiriva (Tiotropium [place]) 18 Mcg Cap.w.dev 1 Cap IH DAILY 09/27/14 Reported Simvastatin 20 Mg Tablet 20 Mg PO HS 09/27/14 Reported Isopto Tears (Hypromellose) 15 Ml Drops 15 Ml OP PRN Q6HRS PRN 09/27/14 Reported Glucose Gel (Dextrose) 38 Gm Gel..gram. 38 Gm PO PRN PRN 09/27/14 Reported Cyanocobalamin Injection (Cyanocobalamin (Vitamin B-12)) 1,000 Mcg/1 Ml Vial 1 Ml IM QMONTH 09/27/14 Reported Aspirin Ec (Aspirin) 81 Mg Tablet.dr 1 Tab PO DAILY 09/27/14 Reported Proair Hfa Inhaler (Albuterol Sulfate) 8.5 Gm Hfa.aer.ad 2 Puff IH PRN Q6HRS PRN 09/27/[address] chest IMPRESSION: 1. Multifocal masslike consolidated infiltrate within the right middle and lower lobes, the latter of which is associated with a component of cavitation. There is extensive surrounding groundglass and nodular infiltrate throughout the remainder of the right lung and left lower lobe. Follow-up to confirm resolution and exclude a persistent underlying mass. 2. Right paratracheal mass likely due to conglomerate lymphadenopathy. There is additional mediastinal and right hilar lymphadenopathy. This likely reactive given the aforementioned findings. Attention the time of follow-up to confirm resolution is recommended. 3. Small pericardial effusion. Electronically signed by: Elizabeth Dennison MD (04/07/2021 3:05 PM) [id number] Impression . 1. Acute hypoxic respiratory failure, suspect secondary to multifactorial etiologies and includes combination of acute exacerbation of chronic obstructive pulmonary disease and extensive pneumonia. 2. Abnormal CT chest with extensive pneumonia right lung. There is masslike consolidation in the right middle lobe. There is mild cavitation in the right lower lobe. There is associated right paratracheal adenopathy. 3. Underlying chronic obstructive pulmonary disease. Could be severe due to the fact that she has chronic hypercapnia. 4. Acute kidney injury. 5. No significant leukocytosis. 6. COVID negative. Plan . Updated 04/14 CT reviewed Sed rate not elevated Discussed with Dr. Farias Discharge home on prednisone 40 mg daily Follow-up in the office in May GARRETT XIAO MD Apr 14, 2021 08:07
[2021-04-14] MEDS: POLYVINYL ALCOHOL 1.4% OPHTH SOLUTION 15ML BOTTLE. OU SCH ×3 (09:00→17:00)
[2021-04-14] MEDS: SENNOSIDES/DOCUSATE 8.6/50MG TABLET. PO SCH (09:00)
[2021-04-14] MEDS: LACTOBACILLUS RHAMNOSUS GG 1 CAPSULE. PO SCH (10:47)
[2021-04-14] MEDS: metroNIDAZOLE 500 MG TABLET PO SCH (10:47)
[2021-04-14] MEDS: buPROPion XL 150 MG TAB.ER.24H. PO SCH (10:47)
[2021-04-14] MEDS: SENNOSIDES 8.6 MG TABLET PO PRN (10:47)
[2021-04-14] MEDS: PANTOPRAZOLE 40 MG TABLET.DR. PO SCH (10:47)
[2021-04-14] MEDS: ASPIRIN ENTERIC COATED 81 MG TABLET.DR. PO SCH (10:47)
[2021-04-14] MEDS: CEFEPIME HCL IV Push 1 GM VIAL. IVP SCH (10:48)
[2021-04-14] MEDS: LINEZOLID 600 MG TABLET PO SCH (10:48)
[2021-04-14 11:00] VITALS: BP 145/59
[2021-04-14 13:16] LABS: ALBUMIN 2.2 g/dL (3.4-5.0); ALBUMIN/GLOBULIN RATIO 0.7 (1.0-1.7); CREATININE 1.1 mg/dL (0.6-1.0); GFR 49.2; POTASSIUM 4.6 mmol/L (3.5-5.1); TOTAL BILIRUBIN 0.5 mg/dL (0.2-1.0); TOTAL PROTEIN 5.5 g/dL (6.4-8.2)
[2021-04-14 13:41] LABS: BASO # 0.1 x10^3/uL (0.0-0.2); BASO % 1 % (0-3); EOS # 0.3 x10^3/uL (0.0-0.7); EOS % 3 % (0-3); HEMATOCRIT 40.3 % (36.0-47.0); HEMOGLOBIN 13.4 g/dL (12.0-15.5); LYMPH # 1.6 x10^3/uL (1.0-4.8); LYMPH % 16 % (24-48); MEAN CORPUSCULAR HEMOGLOBIN 31 pg (25-35); MEAN CORPUSCULAR HGB CONC 33 g/dL (31-37); MEAN CORPUSCULAR VOLUME 94 fL (79-100); MONO # 0.5 x10^3/uL (0.0-1.1); MONO % 5 % (0-9); NEUT # 7.8 x10^3/uL (1.8-7.7); NEUT % 76 % (31-73); PLATELET COUNT 182 x10^3/uL (140-400); RED CELL DISTRIBUTION WIDTH 13.4 % (11.5-14.5); WHITE BLOOD COUNT 10.2 x10^3/uL (4.0-11.0)
--- NOTE | 2021-04-14 13:47 | RAD ---
XR CHEST 1V INDICATION: wheezing COMPARISON STUDY: 04/13/2021. FINDINGS: Lungs: Low lung volume. Progression of left basilar opacities, stable right lung opacities. Pleura: Stable pleural spaces. Heart and Mediastinum: Stable cardiomediastinal silhouette and great vessels. IMPRESSION: Progression of left basilar opacities, stable right lung opacities. Electronically signed by: Andrew Valdez MD (04/14/2021 1:45 PM) [id number]
[2021-04-14 15:00] VITALS: BP 129/52
[2021-04-14] MEDS ORDERED: LINE600T12 PO (15:32)
[2021-04-14] MEDS ORDERED: PRED20TA PO (15:34)
--- NOTE | 2021-04-14 15:36 | SNU/HH DC ---
DISCHARGE ORDERS DISCHARGE INFORMATION: DISCHARGE DATE: Apr 14, 2021 FINAL DIAGNOSIS Problems Medical Problems: (1) Dementia Status: Acute (2) Hypoxia Status: Acute CONDITION ON DISCHARGE: Stable CODE STATUS: Code Status: Full ALF: SNF STAY <30 DAYS: No POST DISCHARGE ORDERS: ACTIVITY ORDERS: Activity as tolerated WEIGHT BEARING STATUS: Full weight bearing, As tolerated DIET AFTER DISCHARGE: Cardiac CHECKS AFTER DISCHARGE: CHECKS AFTER DISCHARGE: Check blood press - daily, Check blood sugar, ac/hs FOLLOW-UP: LAB ORDERS FOR FOLLOW-UP: CBC with diff, CMP, prealbumin in AM TREATMENT/EQUIPMENT ORDERS: ADAPTIVE EQUIPMENT NEEDED: None RESPIRATORY EQUIPMENT NEEDED: Nebulizer Physical Therapy For: Evalulation/Treatment Occupational Therapy For: Evaluation/Treatment DISCHARGE MEDICATIONS: Home Meds Active Scripts Prednisone (PREDNISONE) 20 Mg Tablet, 2 TAB PO DAILY for copd for 30 Days, #60 TAB Prov:HUSSEIN NGUYEN MD 04/14/21 Linezolid (ZYVOX) 600 Mg Tablet, 600 MG PO BID for infection for 7 Days, #14 TAB Prov:HUSSEIN NGUYEN MD 04/14/21 Sennosides/Docusate Sodium (SENNA-TIME S TABLET) 1 Each Tablet, 2 TAB PO DAILY10, #60 TAB Take by mouth 2 tablets daily Prov:BELLO MONTALVO APRN 09/22/16 Insulin Aspart (NOVOLOG FLEXPEN) 100 Unit/1 Ml Insuln.pen, 0-12 UNIT SQ TIDAC, #5 SYR inject subq tid ac: 101-150=2unit, 151-200=3 unit, 201-250=4 unit, 251-300=6 unit, 301-350=8 unit, 351-400=10 unit >401 call Prov:BELLO MONTALVO APRN 09/20/16 Insulin Aspart (NOVOLOG FLEXPEN) 100 Unit/1 Ml Insuln.pen, 12 UNITS SQ TIDAC, #5 EACH Inject 12 units tid ac Prov:BELLO MONTALVO APRN 09/20/16 Reported Medications Quetiapine Fumarate (SEROQUEL XR) 150 Mg Tab.er.24h, 1 TAB PO QHS for schizo effect, #30 TAB 04/06/21 Fluoxetine Hcl (PROZAC) 40 Mg Capsule, 40 MG PO HS for depressive disorder, CAP 04/06/21 Potassium Citrate (POTASSIUM CITRATE ER) 15 Meq Tablet.er, 20 MEQ PO DAILY for heart disease, TAB.SR 04/06/21 Calcium Carbonate/Vitamin D3 (CALCIUM 500 + VIT D 200 CAPLET) 1 Each Tablet, 1 EACH PO DAILY for vitamin, TAB 04/06/21 Memantine Hcl (NAMENDA) 10 Mg Tablet, 10 MG PO BID for dementia, TAB 04/06/21 Metoprolol Succinate (METOPROLOL SUCCINATE ( XL )) 100 Mg Tab.er.24h, 50 MG PO DAILY for FOR HYPERTENSION, #30 TAB 0 Refills 04/06/21 Melatonin (MELATONIN) 3 Mg Tab.rapdis, 1 TAB PO QHS for sleep for 30 Days, #30 TAB 0 Refills 04/06/21 Losartan Potassium (LOSARTAN POTASSIUM) 100 Mg Tablet, 100 MG PO DAILY for HYPERTENSION, TAB 04/06/21 Insulin Glargine,Hum.rec.anlog (LANTUS SOLOSTAR) 100 Unit/1 Ml Insuln.pen, 20 UNIT SQ QHS for sugar, #15 ML 5 Refills 04/06/21 Loratadine (LORATADINE) 10 Mg Tablet, 1 TAB PO DAILY for personal health, #30 TAB 04/06/21 Furosemide (LASIX) 20 Mg Tablet, 20 MG PO DAILY for watwer pill, TAB 04/06/21 Haloperidol (HALOPERIDOL) 5 Mg Tablet, 7.5 MG PO HS for schizo disorder, TAB 04/06/21 Divalproex Sodium (DEPAKOTE ER) 250 Mg Tab.er.24h, 1 TAB PO QHS for bipolar, #30 TAB 04/06/21 Buspirone Hcl (BUSPIRONE HCL) 10 Mg Tablet, 1 TAB PO BID for bipolar, #60 TAB 1 Refill 04/06/21 Donepezil Hcl (ARICEPT) 10 Mg Tablet, 10 MG PO HS for dementria, TAB 04/06/21 Amantadine Hcl (AMANTADINE) 100 Mg Tablet, 50 MG PO BID for eps, TAB 04/06/21 Acetaminophen (TYLENOL EXTRA STRENGTH) 500 Mg Tablet, 1000 MG PO Q8HRS PRN for PAIN, TAB 09/18/16 Glucagon,Human Recombinant (GLUCAGON EMERGENCY KIT) 1 Mg Kit, 1 MG IM PRN, #2 KIT 5 Refills 09/18/16 Fluticasone Propionate (Flonase Allergy Relief) 9.9 Ml [place].susp, 2 SPRAYS NS DAILY, BOTTLE 09/18/16 Fluticasone/Vilanterol (BREO ELLIPTA 100-25 MCG INH) 1 Each Aer.pow.ba, 1 PUFF IH DAILY, INHALER 09/18/16 Menthol (BIOFREEZE) 118 Ml Gel..ml., 118 ML TP PRN PRN for PAIN, EACH lower back and right shoulder 09/18/16 Dextran 70/Hypromellose (ARTIFICIAL TEARS EYE DROPS) 15 Ml Drops, 2 DROP EACHEYE QID, #15 ML 5 Refills 09/18/16 Bupropion Hcl (WELLBUTRIN XL) 150 Mg Tab.er.24h, 1 TAB PO DAILY, #30 TAB 09/27/14 Petrolatum,White (VASELINE WHITE PETROLEUM) 5 Gm Oint.pack, 1 GM TP HS 09/27/14 Tiotropium [place] (SPIRIVA) 18 Mcg Cap.w.dev, 1 CAP IH DAILY, #30 CAP 3 Refills 09/27/14 Simvastatin (SIMVASTATIN) 20 Mg Tablet, 20 MG PO HS for FOR CHOLESTEROL, #30 TAB 0 Refills 09/27/14 Hypromellose (ISOPTO TEARS) 15 Ml Drops, 15 ML OP PRN Q6HRS PRN for DRY EYE 09/27/14 Dextrose (GLUCOSE GEL) 38 Gm Gel..gram., 38 GM PO PRN PRN for LOW BLOOD SUGAR 09/27/14 Cyanocobalamin (Vitamin B-12) (CYANOCOBALAMIN INJECTION) 1,000 Mcg/1 Ml Vial, 1 ML IM QMONTH, #1 VIAL 3 Refills 09/27/14 Aspirin (ASPIRIN EC) 81 Mg Tablet.dr, 1 TAB PO DAILY, #30 TAB 3 Refills 09/27/14 Albuterol Sulfate (PROAIR HFA INHALER) 8.5 Gm Hfa.aer.ad, 2 PUFF IH PRN Q6HRS PRN for WHEEZING, #1 INHALER 09/27/14 Discontinued Reported Medications Quetiapine Fumarate (SEROQUEL) 50 Mg Tablet, 50 MG PO BID for bipolar, TAB 04/06/21 Nph, Human Insulin Isophane (HUMULIN N) 100 Unit/1 Ml Vial, 8 UNIT SQ BID for sugar, EACH 04/06/21 HUSSEIN NGUYEN MD Apr 14, 2021 15:36
--- NOTE | 2021-04-14 17:16 | NUR ---
Pt discharged back to [facility] via wheelchair with medical transport. pt has all of her belongings with her. Report given to Roby at [facility]. no other needs
== END 2021-04-14 17:29 | DRG 193 ==
LOC: ER 16:45 → 1 WEST ICU 19:00 → 4 NORTH 04-06 18:19
PROVIDERS: ADMIT Internal Medicine; ATTEND Internal Medicine
DX: J18.9 Pneumonia, unspecified organism (principal); J96.01 Acute respiratory failure with hypoxia; N17.0 Acute kidney failure with tubular necrosis; E87.1 Hypo-osmolality and hyponatremia; F03.91 Unspecified dementia, unspecified severity, with behavioral disturbance; J44.0 Chronic obstructive pulmonary disease with (acute) lower respiratory infection; J44.1 Chronic obstructive pulmonary disease with (acute) exacerbation; E11.65 Type 2 diabetes mellitus with hyperglycemia; E78.00 Pure hypercholesterolemia, unspecified; E78.5 Hyperlipidemia, unspecified; E87.5 Hyperkalemia; F25.9 Schizoaffective disorder, unspecified; F31.9 Bipolar disorder, unspecified; G20 Parkinson's disease; I10 Essential (primary) hypertension; I27.20 Pulmonary hypertension, unspecified; M47.812 Spondylosis without myelopathy or radiculopathy, cervical region; M50.322 Other cervical disc degeneration at C5-C6 level; Y95 Nosocomial condition; Z20.822 Contact with and (suspected) exposure to COVID-19; Z87.891 Personal history of nicotine dependence; F41.9 Anxiety disorder, unspecified; G89.29 Other chronic pain; K21.9 Gastro-esophageal reflux disease without esophagitis; Z88.0 Allergy status to penicillin; Z88.8 Allergy status to other drugs, medicaments and biological substances
CPT/HCPCS: 36415; 36600; 70450; 71045; 71250; 72125; 80048; 80053; 81001; 82553; 82805; 82962; 83605; 83735; 83880; 84100; 84145; 84484; 85025; 85651; 87040; 87426; 87449; 87641; 93005; 94640; 94660; 94760; 96365; 96366; 96375; J0692; J1644; J1815; J1956; J2405; J2920; J2930; U0003; U0005; 97110-GP; 97116-GP; 97530-GO; 97530-GP; 97535-GO; 99285-25; G0378; J7613; J7626